=== PATIENT | female | born 1970 | race African-American/Black ===

== ENCOUNTER 2019-07-22 11:17 | Inpatient (IN) | payer OTHER, MEDICAID, SELFPAY ==
[2019-07-22] VITALS (10 sets, daily range): BP systolic 147–170; BP diastolic 75–137; PULSE 70–91; RESP 10–19; TEMP 36–36.2; O2SAT 95–100; BMI 36.7
--- NOTE | ~2019-07-22 | XR_ITS ---
EXAMINATION: XR chest 2V DATE: 07/22/2019 14:29 INDICATION: Cough and weakness TECHNIQUE: PA and lateral views of the chest were obtained. COMPARISON: None FINDINGS: Large-bore dual-lumen right internal jugular central venous catheter with distal tip near the superio r cavoatrial junction. Adjustable gastric banding procedure with gastric band in expected position wi th findings of 25 degrees and reservoir along the anterior left upper quadrant. Lungs are clear with no focal airspace opacities, pulmonary edema, pleural effusion or pneumothorax. The cardiomediastinal silhouette is normal. Visualized bones and soft tissues are unremarkable. IMPRESSION: 1. No acute cardiopulmonary disease. Reviewed, dictated and finalized at location A. ERSITY LECTURER
--- NOTE | ~2019-07-22 | US_ITS ---
EXAMINATION: US retroperitoneal comp DATE: 07/23/2019 08:27 INDICATION: Renal failure. TECHNIQUE: Multiple ultrasound grayscale images of the kidneys were obtained. COMPARISON: None. FINDINGS: The right kidney measures 7.5 x 4.8 x 4.2 cm. The left kidney measures 8.7 x 4.3 x 4.7 cm. The kidney s demonstrate increased parenchymal echogenicity, consistent with nonspecific nephropathy. There is n o hydronephrosis. The bladder is decompressed. Incidentally noted are uterine fibroids. IMPRESSION: 1. Mild atrophy of the kidneys. No hydronephrosis. 2. Uterine fibroids. Reviewed, dictated and finalized at location A. ICAL PHARMACY TECHNICIAN
[2019-07-22 13:40] LABS: Basophils Absolute Auto 0.1 K/mm3 (0.0-0.1); Basophils Percent Auto 0.6 % (0.2-1.2); Eosinophils Absolute Auto 0.2 K/mm3 (0-0.3); Eosinophils Percent Auto 2.3 % (0-4.4); Hematocrit 32.6 % (37.0-47.0); Hemoglobin 10.7 g/dL (12.0-15.0); Immature Granulocyte Absolute 0.05 K/mm3 (0.00-0.031); Immature Granulocyte Percent A 0.5 % (0-0.5); Lymphocytes Absolute Auto 1.86 K/mm3 (0.9-3.2); Lymphocytes Percent Auto 18.3 % (18.3-44.2); Mean Corpuscular HGB Conc 32.8 g/dl (32-36); Mean Corpuscular Hemoglobin 28.2 pg (26-34); Mean Corpuscular Volume 85.8 fl (80-100); Mean Platelet Volume 9.9 fl (7.4-10.4); Monocytes Absolute Auto 0.7 K/mm3 (0.1-0.6); Monocytes Percent Auto 6.8 % (2.6-8.5); Neutrophils Absolute Auto 7.3 K/mm3 (1.3-6.7); Neutrophils Percent Auto 71.5 % (45.5-73.1); Platelet Count Result 267 k/mm3 (150-375); Red Cell Distribution Width 12.6 % (11.5-14.5); White Blood Count 10.2 K/mm3 (4.5-10.0)
[2019-07-22 13:53] LABS: Alanine Aminotransferase 19 U/L (4-35); Albumin Level 4.1 g/dL (3.5-5.1); Alkaline Phosphatase 72 U/L (38-126); Aspartate Amino Transferase 73 U/L (14-36); Bilirubin,Total 0.5 mg/dL (0.2-1.3); Blood Urea Nitrogen 46 mg/dL (7-17); Calcium 8.8 mg/dL (8.4-10.2); Carbon Dioxide 22 mmol/L (22-30); Chloride 93 mmol/L (98-107); Estimated CRCL calculation 10 ml/min; Estimated Glomerular Filt Rate 5; Glucose 119 mg/dL (65-105); Potassium 4.3 mmol/L (3.4-5.0); Sodium 135 mmol/L (137-145)
--- NOTE | 2019-07-22 14:25 | ED.WEAKNESS ---
HPI - Weakness General Chief complaint: Weakness Stated complaint: weakness/dialysis pt Time Seen by Provider: 07/22/19 14:18 Source: patient Mode of arrival: ambulatory Limitations: no limitations History of Present Illness HPI Narrative: A 49 y/o female pt presents to the ED with c/o generalized weakness and BLE swelling that is worsening. Pt states she was admitted to [facility] to have a venous catheter placed for kidney dialysis and had 3 rounds, but she did not like how she was being treated at the facility so she signed out. She states she came here today to get a second opinion and to see if she needs to continue getting kidney dialysis. Her last dialysis was 2 days ago and she is unsure when her next dialysis is scheduled for. Pt notes having a dry cough, and mild CP. She denies SOB. Pt notes a PMHx of HTN and DM. She is unsure who her shore hand dredge or barge is. MD Complaint: generalized weakness Duration: progressively worsening Context: other (kidney failure) Associated symptoms: chest pain and other (dry cough) Related Data Home Medications Medication Instructions Recorded Confirmed amlodipine 07/22/19 labetalol 07/22/19 Allergies Allergy/AdvReac Type Severity Reaction Status Date / Time clonidine AdvReac Unknown Verified 07/22/19 14:18 lisinopril AdvReac Other Verified 07/22/19 14:17 Review of Systems Review of Systems: All systems reviewed & are unremarkable except as noted in HPI and below Constitutional: Constitutional: Reports weakness (generalized) Cardiovascular: Cardiovascular: Reports chest pain (mild) and Reports leg edema (BLE) Respiratory: Respiratory: Reports cough (dry cough) and Denies dyspnea PMFSH Past Medical History Medical History Erythropoietin deficiency anemia Essential (primary) hypertension Type 2 diabetes mellitus without complications Social History Social History (Updated 07/22/19 @ 17:14 by Willy Peng Nano) Smoking status: Unknown if ever smoked Exam Const: General: no acute distress and alert Nutritional Appearance: well nourished Orientation/consciousness: patient oriented x3 HENMT: Head: normal to inspection Chest: Other: Fransisco catheter in place on right chest Resp: Effort & Inspection: normal respiratory effort Auscultation: clear to auscultation bilaterally Cardio: Rate: regular rate Rhythm: regular rhythm GI: GI Palp: Yes Soft to palpation and No Tenderness to palpation present (GI) Skin: General skin exam: normal color Rashes: no rashes Extrem: General: no edema Course Consultations Consultation #1: Discussed case with Dr. Garcia, shore hand dredge or barge. Agrees to consult and recommends admission. Date: 07/22/19 Time: 15:27 Consultation #2: Discussed case with Krystin Avila, SALES ASSOCIATE KEY HOLDER for the hospitalist, Dr. Dupont. Accepts admission. Date: 07/22/19 Time: 15:51 Vital Signs Vital signs: Vital Signs Temperature 36.0 C L 07/22/19 11:36 Pulse Rate 82 07/22/19 11:36 Respiratory Rate 18 07/22/19 11:36 Blood Pressure 167/90 H 07/22/19 11:36 Pulse Oximetry 100 07/22/19 11:36 Temperature 36.0 C L 07/22/19 11:36 Pulse Rate 75 07/22/19 17:44 Respiratory Rate 19 07/22/19 17:44 Blood Pressure 165/100 H 07/22/19 17:44 Pulse Oximetry 96 07/22/19 17:44 MDM - Weakness Differential Diagnosis Differential diagnosis: Likely other (ESRD, hyperkalemia, UTI, volume overload) Medical Records Attestation: I reviewed the patient's medical records. Lab Data Attestation: I reviewed the patient's lab results. Result diagrams: 07/22/19 13:19 07/22/19 13:19 Labs: Lab Results 07/22/19 07/22/19 07/22/19 Range/Units 13:19 13:19 15:16 WBC 10.2 H (4.5-10.0) K/mm3 RBC 3.80 L (4.2-5.4) M/mm3 Hgb 10.7 L (12.0-15.0) g/dL Hct 32.6 L (37.0-47.0) % MCV 85.8 (80-100) fl MCH 28.2 (26-34) pg MCHC 32.8 (32-36) g/d
[2019-07-22 15:35] LABS: Add Urine Microscopic? YES; Appearance Urine Cloudy (Clear); Bacteria Urine Trace /hpf; Bilirubin Urine Negative (Negative); Blood Urine 2+ (Negative); Color Urine Yellow (Yellow); Glucose Urine UA Negative (Negative); Ketones Urine Trace mg/dL (Negative); Leukocyte Esterase Ur 2+ LEU/UL (Negative); Mucus Urine Rare /lpf; Nitrate Urine Negative (Negative); Protein Urine 3+ mg/dL (Negative); Specific Grav Ur 1.013 (1.001-1.035); Squamous Epithelial Cell Urine Moderate /hpf (Few); Urobilinogen Urine Negative mg/dL (<2.0); WBC Urine 31-50 /hpf
--- NOTE | 2019-07-22 16:26 | PM.CNNEP ---
Assessment and Plan Assessment and plan (1) ESRD needing dialysis: Code(s): N18.6 - End stage renal disease; Z99.2 - Dependence on renal dialysis Status: Acute Assessment and Plan: The patient probably has end-stage renal disease. He was already started on dialysis and has a PermCath. The patient still makes urine and is hopeful she will get some recovery. We can check some labs today and tomorrow to see if there is any sign of that. However I told her that she probably would need dialysis tomorrow. Will watch for signs of recovery as we go. Will arrange for dialysis tomorrow. We can get an ultrasound of the kidneys to be sure there is nothing reversible going on. Long discussion with the patient and with the mom. (2) Essential (primary) hypertension: Code(s): I10 - Essential (primary) hypertension Status: Acute Assessment and Plan: The patient has hypertension. Blood pressure is a bit high. I am not sure she has taken her blood pressure medications today. We will restart what she has been on at home. (3) Type 2 diabetes mellitus without complications: Code(s): E11.9 - Type 2 diabetes mellitus without complications Status: Acute Assessment and Plan: She is on Accu-Cheks and sliding-scale insulin. (4) Erythropoietin deficiency anemia: Code(s): D63.1 - Anemia in chronic kidney disease Status: Acute Assessment and Plan: Her hemoglobin is mildly low. She probably should start on some Epogen. History of Present Illness Reason for Consult Consult date: 07/22/19 Chief Complaint Chief complaint: weakness/dialysis pt History of Present Illness Narrative: Heaven is a very pleasant lady who has hypertension, diabetes, hyperlipidemia, chronic kidney disease, anemia. The patient has had chronic kidney disease for some time. Her primary care physician told her a while back that she had problems with her kidneys. He referred her to see Dr. Mccabe at [facility] in [place]. She made an appointment in they told her to get blood work done but she never got it done so she never went to her appointment. Then she went to the emergency room at [facility] with shortness of breath. They found that she had worsened kidney function. She was admitted and she had dialysis. She has had 3 treatments. She did not like the way they treated her though so she signed out against medical advice yesterday. Today the patient has some chest discomfort and is due for dialysis so she came to the hospital. She is actually hoping she gets off dialysis. She is not sure whether the doctors told her that this was acute or chronic kidney insufficiency, however she did say that they pointed out that blood pressure and diabetes were the culprits in her CKD. The patient denies any swelling. She has no shortness of breath. Her chest pain is anterior and mild. She has a cough. She denies any bloody urine, foamy urine, kidney stones, or bladder infections. Her hypertension has been present for at least 20 years. It has been difficult to control all long as she has had several medicine changes to keep the blood pressure in range. She has never had a stroke or heart attack. She has diabetes. Her blood sugar control is pretty good. She thinks her A1c is around 7. She sees the eye doctor yearly and says that she does not have damage to her retina. She has anemia. She was not treated for this before her hospitalization. Past history is as above Social history she does not smoke or drink Family history negative for kidney disease Allergies: Clonidine and lisinopril Review of Systems Constitutional: Constitutional: Reports no additional constitutional complaints Eyes: Eyes: Reports no additional eye complaints ENT: Reports system reviewed and no additional complaints, except as documented Cardiovascular: Cardiovascular: Reports no additional cardiovascular complaints
--- NOTE | 2019-07-22 17:12 | PHAR ---
EPOGEN PT INFO SHEET SENT WITH FIRST EPOGEN DOSE
--- NOTE | 2019-07-22 17:28 | PC.NURSE ---
Call to floor to give report, [facility] is in an isolation room and is unable to give report at present time.
--- NOTE | 2019-07-22 18:21 | ADMGEN ---
This patient, Heaven Trujillo, was admitted to Medical Room 241-01. Patient/family oriented to hospital policies and general routines including ID bracelet, bed and alarms, visiting hours, pain management, procedures, bathroom and other care routines, personal items, smoking policy, room service/diet, and visiting hours. Valuables list has been completed. Information on how to activate the Rapid Response Team has been discussed. Patient/Family are encouraged to report perceived risks to care and to ask questions if they do not understand what they are told or what they should do.
[2019-07-22] MEDS: hydrALAZINE HCL 20 MG/ML VIAL 10 MG IV PUSH (19:17)
--- NOTE | 2019-07-22 19:51 | PM.IMHP ---
H&P: HPI History of Present Illness Chief complaint: ESRD needs dialysis Narrative: This is a 49 year old Diabetic female who presented to the hospital [facility] with a complaint of generalized weakness. The patient is known to have just left AMA from [facility] yesterday after she was treated there this past week for HTN and increased LE edema. She had a right chest HD catheter placed while hospitalized and her last round of dialysis was 2 days ago. She admits to me that her LE edema has practically resolved with the dialysis she had. Today she felt weak and decided to come to the hospital as she thought she might need dialysis as she has no follow up with Nephrology. The patient left [facility] yesterday AMA because she didn't like how she was being treated. [facility] she also mentions that she has had a sporadic dry cough but denies any chest pain, fevers, chills, sore throat, ear pain, shortness of breath, wheezing, abdominal pain, dysuria, hematuria, nausea, vomiting, diarrhea or rectal bleeding. The patient is known to make about 800cc of urine daily. Nephrology has been consulted by ER provider and we have been asked to admit the patient to the hospital for dialysis. No other complaints. Review of Systems Review of Systems: All systems reviewed & are unremarkable except as noted in HPI and below PMFSH Past Medical History Medical History (Updated 07/22/19 @ 20:02 by Abdias Mcnulyt MD) Erythropoietin deficiency anemia Essential (primary) hypertension Type 2 diabetes mellitus without complications Surgical History Surgical History (Updated 07/22/19 @ 19:57 by Abdias Mcnulty MD) H/O tubal ligation LAP-BAND surgery status Family History Family History (Updated 07/22/19 @ 19:57 by Abdias Mcnulty MD) Father Diabetes mellitus Social History Social History Smoking status: Never smoker Alcohol intake: never Substance use: never Gender identity (if verbalized by the patient): Female Spiritual care concerns: No Agree to blood products: Yes Meds Home Medications and Allergies Allergies Allergy/AdvReac Type Severity Reaction Status Date / Time clonidine AdvReac Unknown Verified 07/22/19 14:18 lisinopril AdvReac Other Verified 07/22/19 14:17 Vital Signs Vital Signs - 24 hr 07/22/19 11:36 07/22/19 14:00 07/22/19 14:13 Temperature 36.0 C L Pulse Rate 82 80 80 Respiratory Rate 18 15 Blood Pressure 167/90 H 152/94 H Pulse Oximetry 100 100 07/22/19 15:31 07/22/19 15:46 07/22/19 16:01 Temperature Pulse Rate 72 71 70 Respiratory Rate 19 19 15 Blood Pressure 153/95 H 153/106 H 170/101 H Pulse Oximetry 100 100 100 07/22/19 16:16 07/22/19 17:44 07/22/19 18:11 Temperature 36.2 C L Pulse Rate 70 75 76 Respiratory Rate 10 L 19 19 Blood Pressure 155/137 H 165/100 H 152/89 H Pulse Oximetry 100 96 100 Exam Const: General: cooperative, healthy appearing, no acute distress, alert and awake Nutritional Appearance: well nourished Orientation/consciousness: patient oriented x3 HENMT: Head: normal to inspection General nose exam: Normal external nose present Face and sinus: normal facial exam Mouth: Yes Normal oral and palatal mucosa present and Yes oropharynx normal Eyes: Pupils: Equal, round and reactive pupils present EOM: EOMs intact bilaterally Neck: Neck: supple and no JVD Thyroid: thyroid normal Lymphatic: lymphadenopathy not noted Chest: Other: Right sided port a cath in place+ Resp: Effort & Inspection: normal respiratory effort Auscultation: clear to auscultation bilaterally Cardio: Rate: regular rate Rhythm: regular rhythm Heart sounds: no murmurs GI: Inspection: normal to inspection Auscultation: normal bowel sounds Skin: General skin exam: normal color and no rashes or lesions noted Neuro: General: patient oriented x3 Cranial nerves: Yes CN's II-XII intact bilaterally and
[2019-07-22 23:50] LABS: Glucose Point of Care 188 (65-105)
[2019-07-23] VITALS (19 sets, daily range): BP systolic 121–191; BP diastolic 71–102; PULSE 80–105; RESP 15–18; TEMP 35.9–36.7; O2SAT 100
[2019-07-23 01:47] LABS: Creatinine Urine 65.7 mg/dL
[2019-07-23 01:53] LABS: Sodium Urine Random 25 meq/L
[2019-07-23 02:11] LABS: Total Protein Urine Random 314 mg/dL
[2019-07-23 06:05] LABS: Basophils Absolute Auto 0.1 K/mm3 (0.0-0.1); Basophils Percent Auto 0.6 % (0.2-1.2); Eosinophils Absolute Auto 0.3 K/mm3 (0-0.3); Eosinophils Percent Auto 3.6 % (0-4.4); Hematocrit 30.9 % (37.0-47.0); Hemoglobin 10.1 g/dL (12.0-15.0); Immature Granulocyte Absolute 0.04 K/mm3 (0.00-0.031); Immature Granulocyte Percent A 0.4 % (0-0.5); Lymphocytes Absolute Auto 1.89 K/mm3 (0.9-3.2); Lymphocytes Percent Auto 20.4 % (18.3-44.2); Mean Corpuscular HGB Conc 32.7 g/dl (32-36); Mean Corpuscular Hemoglobin 27.8 pg (26-34); Mean Corpuscular Volume 85.1 fl (80-100); Mean Platelet Volume 9.9 fl (7.4-10.4); Monocytes Absolute Auto 0.7 K/mm3 (0.1-0.6); Monocytes Percent Auto 7.8 % (2.6-8.5); Neutrophils Absolute Auto 6.2 K/mm3 (1.3-6.7); Neutrophils Percent Auto 67.2 % (45.5-73.1); Platelet Count Result 262 k/mm3 (150-375); Red Blood Count 3.63 M/mm3 (4.2-5.4); Red Cell Distribution Width 12.2 % (11.5-14.5); White Blood Count 9.3 K/mm3 (4.5-10.0)
[2019-07-23 06:12] LABS: Albumin Level 3.4 g/dL (3.5-5.1); Blood Urea Nitrogen 51 mg/dL (7-17); Calcium 8.3 mg/dL (8.4-10.2); Carbon Dioxide 22 mmol/L (22-30); Chloride 96 mmol/L (98-107); Estimated CRCL calculation 9 ml/min; Estimated Glomerular Filt Rate 6; Glucose 111 mg/dL (65-105); Phosphorus 5.3 mg/dL (2.5-4.5); Sodium 136 mmol/L (137-145)
[2019-07-23] MEDS: hydrALAZINE HCL 20 MG/ML VIAL 10 MG IV PUSH (06:41)
[2019-07-23 06:48] LABS: Hepatitis B Surface Antigen Negative (Negative)
[2019-07-23 06:53] LABS: HAV RESULT Negative (Negative); Hepatitis B Core IgM Result Negative (Negative)
[2019-07-23 07:05] LABS: Hepatitis B Surface Anti Res Negative; Hepatitis C Virus Antibody Negative (Negative)
[2019-07-23 07:35] LABS: Glucose Point of Care 112 (65-105)
--- NOTE | 2019-07-23 08:37 | PC.NURSE ---
patient to dialysis room via bed. IV intact.
[2019-07-23] MEDS: EPOETIN ALFA 10,000 UNITS/ML VIAL 10000 UNITS IV PUSH (09:58)
--- NOTE | 2019-07-23 10:04 | PM.PNNEP ---
Progress Note: A&P Assessment and Plan (1) End stage renal disease: Code(s): N18.6 - End stage renal disease Status: Chronic Assessment and Plan: HD today and plan T/T/S schedule while hospitalized Reviewed records from [facility]: - etiology felt to be combination of HTN and DM - 24 hour urine collection with a creatinine clearance of 9cc/min - renal ultrasound with small kidneys - serological evaluation negative aside from weakly positive JAMIAL - uremic symptoms noted leading to initiation of renal replacement therapy despite patient's hope that she may recover, suspect she is ESRD will need outpatient dialysis arranged before discharge - she was folllowing with Dr. Mccabe for CKD management (2) Essential (primary) hypertension: Code(s): I10 - Essential (primary) hypertension Status: Chronic Assessment and Plan: better control since admission but continues to fluctuate follow trend post-HD today would not be opposed to starting BRIEN-I or ARB follow hemodynamics (3) Anemia: Code(s): D64.9 - Anemia, unspecified Status: Acute Assessment and Plan: due to ESRD Epogen with HD follow trend of H/H (4) Diabetes: Code(s): E11.9 - Type 2 diabetes mellitus without complications Status: Acute Assessment and Plan: follow accuchecks on SSI Will continue to follow. Subjective Date/time seen: 07/23/19 10:04 Tolerating dialysis at the time of my visit (seen on HD at ~ 10:00AM); no apparent issues or problems voiced; no apparent distress; no events overnight or earlier this AM. Exam Narrative: Exam Narrative: General: WD/WN AA female in NAD Heart: normal S1 and S2; no rub Lungs: clear to auscultation Abdomen: soft, nontender, nondistended, positive bowel sounds Extremities: no cyanosis or clubbing; trace edema Skin: warm and dry Objective Data Vital Signs Vital Signs: Vital Signs Temp Pulse Resp BP Pulse Ox 07/23/19 07:30 157/90 H 07/23/19 05:52 36.2 C L 87 18 191/92 H 100 07/22/19 22:15 36.2 C L 91 18 147/75 H 95 07/22/19 18:11 36.2 C L 76 19 152/89 H 100 07/22/19 17:44 75 19 165/100 H 96 07/22/19 16:16 70 10 L 155/137 H 100 07/22/19 16:01 70 15 170/101 H 100 07/22/19 15:46 71 19 153/106 H 100 07/22/19 15:31 72 19 153/95 H 100 07/22/19 14:13 80 07/22/19 14:00 80 15 152/94 H 100 07/22/19 11:36 36.0 C L 82 18 167/90 H 100 Intake/Output Intake/Output: Intake & Output 07/20/19 07/21/19 07/22/19 07/23/19 23:59 23:59 23:59 23:59 Intake Total 300 Output Total 600 Balance -300 Meds/Results Medications: Active Medications Generic Name Dose Route Start Last Admin Trade Name Freq PRN Reason Stop Dose Admin Acetaminophen 650 mg 07/22/19 20:03 Tylenol Tablet PO Q4H PRN Mild Pain (1-3) or Fever Dextrose 12.5 gm 07/22/19 20:03 Dextrose 50% Syringe IV PUSH PRN PRN Hypoglycemia Protocol Epoetin Darin 10,000 units 07/23/19 19:00 Epogen IV PUSH 07/23/19 19:01 ONCE ONE Glucagon 1 mg 07/22/19 20:03 Glucagon For Inj IM PRN PRN Hypoglycemia Protocol Glucose 15 gm 07/22/19 20:03 Glutose 15 PO PRN PRN Hypoglycemia Protocol Hydralazine HCl 10 mg 07/22/19 20:02 07/23/19 06:41 Apresoline Hcl Inj IV PUSH 07/23/19 12:00 10 mg Q8H PRN Administration see comment Albumin Human 50 mls @ 999 mls/hr 07/22/19 16:36 Albutein IVPB 07/23/19 16:37 Q10M PRN HYPOTENSION Dextrose 1,000 mls @ 100 mls/hr 07/22/19 20:03 Dextrose 5% 1,000 Ml IVPB PRN PRN Hypoglycemia Protocol Albumin Human 50 mls @ 999 mls/hr 07/22/19 23:00 Albutein IVPB 08/21/19 23:01 Q10M PRN HYPOTENSION Insulin Aspart 3 - 6 units 07/23/19 08:00 07/23/19 09:02 Novolog SUB-Q Not G
[2019-07-23 12:49] LABS: Glucose Point of Care 110 (65-105)
--- NOTE | 2019-07-23 15:17 | PM.IMPN ---
Progress Note: A&P Assessment and Plan (1) ESRD (end stage renal disease) on dialysis: Code(s): N18.6 - End stage renal disease; Z99.2 - Dependence on renal dialysis Status: Chronic Assessment and Plan: The patient is found to be in end-stage renal disease with a creatinine of 8.1 on arrival. Nephrology evaluated the patient and ordered dialysis this morning. The patient is feeling much better after having dialysis and reports that she is ready to be discharged home. I explained to the patient that before she can be discharged we need to set up outpatient dialysis at [facility]. If she was to leave this time then she would continue to come back to emergency room repeatedly for dialysis treatments every few days which is not a good long-term plan. The patient understands and agrees with the plan this time for further monitoring and discharge planning. (2) Type 2 diabetes mellitus without complications: Code(s): E11.9 - Type 2 diabetes mellitus without complications Status: Chronic Assessment and Plan: Patient's serum glucose this morning was 111. Will check a hemoglobin A1c in the morning. Accuchecks, SSI Coverage, Continue home Long acting insulin, hypoglycemic protocol. (3) Essential (primary) hypertension: Code(s): I10 - Essential (primary) hypertension Status: Chronic Assessment and Plan: Patient states she has had blood pressure issues for 20 years. She is not currently taking any blood pressure medications at home. While she was at [facility] they tried started her on 3 blood pressure medications and she felt like she was having side effects and discontinued all them. After discussing with Nephrology she will be started on losartan 50 mg daily for blood pressure control at this time in further adjustments can be made as an outpatient. Monitor blood pressure. PRN hydralazine w/ parameters. (4) Erythropoietin deficiency anemia: Code(s): D63.1 - Anemia in chronic kidney disease Status: Chronic Assessment and Plan: Anemia of chronic disease. Her hemoglobin was 10.1 and hematocrit was 30.9. Stable. Continue Nephrology recommendations. (5) Abnormal urinalysis: Code(s): R82.90 - Unspecified abnormal findings in urine Status: Acute Assessment and Plan: r/o UTI vs. contamination. She denies any urinary symptoms at this time all. Urine culture pending. Time Spent With Patient Time with patient: 25 - 35 minutes Subjective Date/time seen: 07/23/19 15:17 Interval history: Date of service 07/23/2019: The patient is feeling much better today after receiving dialysis. Denies any more leg swelling, cough or generalized weakness. She reports having blood pressure issues for over 20 years and reports multiple reactions to different medications. She states she left [facility] because they were given her to any medications and she was having side effects from them. She is currently living in [place] with her mother and would be able to get transported to [facility] for dialysis if necessary. Denies any chest pain, shortness of breath, fever, chills, calf pain, nausea, vomiting, abdominal pain, diarrhea, constipation or any other symptoms at this time. Review of Systems Review of Systems: All systems reviewed & are unremarkable except as noted in HPI and below Exam Narrative: Exam Narrative: General: 49-year-old woman sitting up in the chair resting comfortably. In no acute distress. Skin: No jaundice or cyanosis. Good skin turgor. Neck: Full range of motion. Supple. Respiratory: PermCath to right upper chest wall. Lungs are clear to auscultation bilaterally. No bony chest wall tenderness. Cardiov
[2019-07-23] MEDS: LOSARTAN POTASSIUM 50 MG TABLET PO (16:32)
[2019-07-23 17:26] LABS: Glucose Point of Care 305 (65-105)
[2019-07-23] MEDS: INSULIN ASPART (*BKC) 100 UNITS/ML SUB-Q (17:27)
[2019-07-23 22:44] LABS: Glucose Point of Care 166 (65-105)
[2019-07-24] MEDS: ACETAMINOPHEN 325 MG TABLET 650 MG PO (05:18)
[2019-07-24 05:36] LABS: Hemoglobin A1C 6.8 % (<5.7)
[2019-07-24 05:56] LABS: Albumin Level 3.4 g/dL (3.5-5.1); Blood Urea Nitrogen 33 mg/dL (7-17); Calcium 8.2 mg/dL (8.4-10.2); Carbon Dioxide 29 mmol/L (22-30); Chloride 95 mmol/L (98-107); Estimated CRCL calculation 12 ml/min; Estimated Glomerular Filt Rate 8; Glucose 116 mg/dL (65-105); Phosphorus 3.9 mg/dL (2.5-4.5); Potassium 3.5 mmol/L (3.4-5.0); Sodium 135 mmol/L (137-145)
[2019-07-24 06:10] VITALS: BP 152/81; PULSE 93; RESP 18; TEMP 36.8; O2SAT 99
[2019-07-24 07:55] LABS: Glucose Point of Care 119 (65-105)
[2019-07-24 08:00] VITALS: PULSE 93; RESP 18; O2SAT 99
[2019-07-24] MEDS: LOSARTAN POTASSIUM 50 MG TABLET PO (08:59)
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
[2019-07-24 12:19] LABS: Glucose Point of Care 168 (65-105)
== END 2019-07-24 12:24 | disposition home or self-care (01) | DRG 682 ==
LOC: ANHED 16:47 → ANH2MED 17:10
PROVIDERS: Emergency Medicine; Family Medicine; Internal Medicine Nephrology; Physician Assistant; Admitting Provider Internal Medicine; Emergency Provider Emergency Medicine; Visit Provider Physician Assistant
DX: I12.0 Hypertensive chronic kidney disease with stage 5 chronic kidney disease or end stage renal disease (principal); N18.6 End stage renal disease; Z99.2 Dependence on renal dialysis; E11.22 Type 2 diabetes mellitus with diabetic chronic kidney disease; D63.1 Anemia in chronic kidney disease; Z79.4 Long term (current) use of insulin
CPT/HCPCS: 36415; 71046; 76770; 80053; 80069; 80074; 81001; 82570; 83036; 84156; 84300; 85025; 86706; 87081; 87086; 87088; 99285; A9270; G0257; J0360; J1815; J7030; Q4081

== ENCOUNTER 2019-09-04 15:37 | Emergency (ER) | payer OTHER, MEDICAID, SELFPAY ==
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
[2019-09-04 15:37] VITALS: BP 176/109; PULSE 96; RESP 15; TEMP 37.7; O2SAT 100
--- NOTE | 2019-09-04 15:41 | ECG_ITS ---
Measurements Intervals [place] Rate: 96 P: 37 NV: 137 QRS: -30 QRSD: 98 T: 16 QT: 384 QTc: 486 Interpretive Statements SINUS RHYTHM VOLTAGE CRITERIA FOR LVH POOR R WAVE PROGRESSION, ANTERIOR LEADS BORDERLINE T WAVE ABNORMALITY- INFERIOR LEADS BASELINE WANDER- AVR, AVF, V2 BORDERLINE ECG Electronically Signed On 09-05-2019 7:40:05 CDT by Robert Bocanegra D.O.
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
--- NOTE | 2019-09-04 15:44 | PC.NURSE ---
Pt denies neck/back pain, C Collar removed by provider.
[2019-09-04 16:13] VITALS: RESP 14; O2SAT 99
[2019-09-04 16:52] LABS: Add Urine Microscopic? YES; Appearance Urine Clear (Clear); Bacteria Urine Trace /hpf; Bilirubin Urine Negative (Negative); Blood Urine Negative (Negative); Color Urine Yellow (Yellow); Glucose Urine UA 1+ mg/dL (Negative); Ketones Urine Negative (Negative); Leukocyte Esterase Ur Trace LEU/UL (Negative); Nitrate Urine Negative (Negative); Protein Urine 3+ mg/dL (Negative); Specific Grav Ur 1.014 (1.001-1.035); Squamous Epithelial Cell Urine Many /hpf (Few); Urobilinogen Urine Negative mg/dL (<2.0)
[2019-09-04 16:54] LABS: Basophils Percent Auto 0.4 % (0.2-1.2); Eosinophils Absolute Auto 0.3 K/mm3 (0-0.3); Eosinophils Percent Auto 3.6 % (0-4.4); Hematocrit 34.1 % (37.0-47.0); Hemoglobin 11.2 g/dL (12.0-15.0); Immature Granulocyte Absolute 0.06 K/mm3 (0.00-0.031); Immature Granulocyte Percent A 0.8 % (0-0.5); Lymphocytes Absolute Auto 1.45 K/mm3 (0.9-3.2); Lymphocytes Percent Auto 19.5 % (18.3-44.2); Mean Corpuscular HGB Conc 32.8 g/dl (32-36); Mean Corpuscular Hemoglobin 28.2 pg (26-34); Mean Corpuscular Volume 85.9 fl (80-100); Mean Platelet Volume 10.6 fl (7.4-10.4); Monocytes Absolute Auto 0.4 K/mm3 (0.1-0.6); Monocytes Percent Auto 5.1 % (2.6-8.5); Neutrophils Absolute Auto 5.3 K/mm3 (1.3-6.7); Neutrophils Percent Auto 70.6 % (45.5-73.1); Platelet Count Result 243 k/mm3 (150-375); Red Blood Count 3.97 M/mm3 (4.2-5.4); Red Cell Distribution Width 11.7 % (11.5-14.5); White Blood Count 7.5 K/mm3 (4.5-10.0)
[2019-09-04 17:05] LABS: Alanine Aminotransferase 11 U/L (4-35); Albumin Level 4.1 g/dL (3.5-5.1); Alkaline Phosphatase 94 U/L (38-126); Aspartate Amino Transferase 22 U/L (14-36); Bilirubin,Total 0.4 mg/dL (0.2-1.3); Blood Urea Nitrogen 25 mg/dL (7-17); Carbon Dioxide 35 mmol/L (22-30); Chloride 93 mmol/L (98-107); Estimated CRCL calculation 17 ml/min; Estimated Glomerular Filt Rate 12; Glucose 223 mg/dL (65-105); Potassium 3.8 mmol/L (3.4-5.0); Sodium 135 mmol/L (137-145)
[2019-09-04 18:11] VITALS: BP 143/97; PULSE 75
[2019-09-04 18:12] VITALS: BP 140/98; PULSE 83
[2019-09-04 18:14] VITALS: BP 120/90; PULSE 112
[2019-09-04 18:34] VITALS: BP 145/99; PULSE 83; RESP 20; O2SAT 100
== END 2019-09-04 18:39 | disposition home or self-care (01) ==
PROVIDERS: Emergency Medicine Emergency Medical Services; Emergency Provider Emergency Medicine; PCP Family Medicine
DX: S20.211A Contusion of right front wall of thorax, initial encounter (principal); E11.22 Type 2 diabetes mellitus with diabetic chronic kidney disease; I12.0 Hypertensive chronic kidney disease with stage 5 chronic kidney disease or end stage renal disease; N18.6 End stage renal disease; Z99.2 Dependence on renal dialysis; Z79.4 Long term (current) use of insulin; E11.21 Type 2 diabetes mellitus with diabetic nephropathy; D63.1 Anemia in chronic kidney disease; Z98.84 Bariatric surgery status; R94.31 Abnormal electrocardiogram [ECG] [EKG]; V47.5XXA Car driver injured in collision with fixed or stationary object in traffic accident, initial encounter
CPT/HCPCS: 36415; 71250; 80053; 81001; 81025; 85025; 87086; 93005; 96374; 99284; A9270; J0131

== ENCOUNTER 2019-10-20 06:50 | Outpatient (CLI) | payer OTHER, MEDICAID, SELFPAY ==
--- NOTE | 2019-10-20 07:30 | NEURO_ITS ---
TEST: SLEEP-DEPRIVED ELECTROENCEPHALOGRAM DIAGNOSIS: SEIZURE PATIENT NUMBER: [id number] EEG NUMBER: [id number] RECORDING DATE: 10/20/19 CLINICAL HISTORY: Patient reports for about 6 months she has been having episodes of ?blacking out? for about 30 seconds then she is fine. CONDITION OF RECORDING: Awake, drowsy and sleep EEG DESCRIPTION: Basic resting occipital frequency consists of moderate amount of fairly well organized low voltage 8-10hz alpha mixed with low voltage 15-18hz beta. During drowsiness low voltage beta activity is seen diffusely mixed with waxing and waning posterior alpha rhythms and intermittent 6-7hz theta activity. Bilateral symmetrical sleep activity is seen during sleep. Photic stimulation produced normal drive. Hyperventilation produced normal and symmetrical build- up. Nonparoxysmal. Nonfocal. Nonlateralizing. IMPRESSION: No significant abnormalities noted. MTDD
== END 2019-10-20 06:51 | disposition home or self-care (01) ==
PROVIDERS: PCP Family Medicine; Visit Provider Psychiatry & Neurology Neurology
DX: R56.9 Unspecified convulsions (principal)
CPT/HCPCS: 95819

== ENCOUNTER 2019-11-02 22:06 | Observation (INO) | payer MEDICARE, MEDICAID, SELFPAY ==
[2019-11-02] VITALS (13 sets, daily range): BP systolic 134–159; BP diastolic 98–122; PULSE 92–114; RESP 0–26; TEMP 37.2; O2SAT 96–99
--- NOTE | ~2019-11-02 | US_ITS ---
EXAMINATION: US carotid duplex BI DATE: 11/04/2019 17:07 INDICATION: Encephalopathy with seizures and recurrent loss of consciousness. TECHNIQUE: Grayscale, color Doppler, and pulsed Doppler images of the cervical carotid arteries were obtained. The degree of vessel stenosis is placed in one of the following categories: normal, <50%, 5 0-69%, >=70% but less than near-occlusion, near-occlusion, or total occlusion. Note that percent sten osis relative to normal distal artery lumen diameter is indirectly measured from velocity measurement s as described by Parker, et al. Radiology 2003; 229:340-346. COMPARISON: None. FINDINGS: RIGHT: The right common carotid artery (CCA) peak systolic velocity (PSV) is 95 cm/s. The right internal car otid artery (ICA) PSV is 41 cm/s. The right ICA end-diastolic velocity (EDV) is 18 cm/s. The right IC A/CCA PSV ratio is 0.4. Grayscale and color Doppler images yield an estimate of <50% diameter reducti on from plaque in the ICA. The external carotid artery (ECA) PSV is 41 cm/s. There is antegrade flow in the right vertebral artery. LEFT: The left CCA PSV is 77 cm/s. The left ICA PSV is 65 cm/s. The left ICA EDV is 27 cm/s. The left ICA/C CA PSV ratio is 0.8. Grayscale and color Doppler images yield an estimate of <50% diameter reduction from plaque in the ICA. The ECA PSV is 45 cm/s. There is antegrade flow in the left vertebral artery. IMPRESSION: 1. <50% stenosis in the right internal carotid artery. 2. <50% stenosis in the left internal carotid artery. Reviewed, dictated and finalized at location A.
--- NOTE | ~2019-11-02 | MR_ITS ---
EXAMINATION: MR brain/brain stem wo con DATE: 11/03/2019 14:33 INDICATION: Seizure. TECHNIQUE: Magnetic resonance imaging (MRI) of the brain and brainstem was performed without intraven ous contrast due to low estimated GFR. Sequences included sagittal and axial T1-weighted FSE, axial d iffusion-weighted FS EPI, axial T2*-weighted GRE, axial T2-weighted FLAIR Propeller, axial T2-weighte d Propeller, coronal T2-weighted FLAIR, and coronal T1-weighted 3D FSPGR. Apparent diffusion coeffici ent (ADC) maps were created. COMPARISON: None. FINDINGS: The hippocampi are normal and symmetric. There is no intracranial hemorrhage, acute infarct ion, or abnormal intracranial mass lesion. There is an empty sella. There are scattered areas of no nspecific increased T2-weighted signal intensity in the cerebral white matter. The ventricles are nor mal in size. The orbits are normal. There is mild mucosal thickening in left maxillary sinus. The mas toid air cells are normal. IMPRESSION: 1. Mild nonspecific cerebral white matter disease, which likely represents chronic small vessel ische sudha disease. Reviewed, dictated and finalized at location A. IMPRESSION: 1. 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
--- NOTE | 2019-11-02 22:07 | ECG_ITS ---
Measurements Intervals [place] Rate: 101 P: 36 WI: 142 QRS: 97 QRSD: 92 T: 53 QT: 342 QTc: 444 Interpretive Statements SINUS TACHYCARDIA RIGHT AXIS DEVIATION POOR R WAVE PROGRESSION, ANTERIOR LEADS BASELINE ARTIFACT- I, III, AVL, V4 ABNORMAL ECG Electronically Signed On 11-03-2019 6:56:38 CDT by Robert Bocanegra D.O.
--- NOTE | 2019-11-02 22:09 | ED.SEIZURE ---
HPI - Seizure General Chief Complaint: Seizure Stated Complaint: seizures History of Present Illness HPI Narrative: Currently under investigation for possible new onset seizures. 3 episodes today. During episodes she stares off. does not respond. Shows some repetitive movments. During one episode today. She displayed tongue biting. She had a normal EEG and has not been started on antiepileptics. Related Data Home Medications Medication Instructions Recorded Confirmed allopurinol 300 mg PO DAILY 11/03/19 11/03/19 irbesartan 300 mg PO DAILY 11/03/19 11/03/19 Allergies Allergy/AdvReac Type Severity Reaction Status Date / Time clonidine AdvReac Severe blacking Verified 10/15/19 16:27 out lisinopril AdvReac Severe kidney Verified 10/15/19 16:27 function Review of Systems Review of Systems: All systems reviewed & are unremarkable except as noted in HPI and below Constitutional: Constitutional: Denies chills and Denies fever(s) Cardiovascular: Cardiovascular: Denies chest pain Respiratory: Respiratory: Denies dyspnea Gastrointestinal: Gastrointestinal: Denies nausea and Denies vomiting Genitourinary: Genitourinary: Denies dysuria Neurologic: Denies headache(s) and Denies weakness [facility] Past Medical History Medical History Controlled diabetes mellitus with diabetic nephropathy, with long-term current use of insulin Erythropoietin deficiency anemia Essential (primary) hypertension Type 2 diabetes mellitus with diabetic chronic kidney disease Type 2 diabetes mellitus without complications Surgical History Surgical History H/O tubal ligation LAP-BAND surgery status Family History Family History Father Diabetes mellitus Social History Social History Social History: Smoking status: Never smoker Second hand tobacco smoke exposure: No Alcohol intake: never Substance use: never Substance use type: does not use Gender identity (if verbalized by the patient): Female Spiritual care concerns: Yes Agree to blood products: Yes Exam Const: General: healthy appearing, no acute distress and alert Orientation/consciousness: patient oriented x3 HENMT: Head: normal to inspection Neck: Neck: normal visual inspection and no lymphadenopathy Chest: Chest palpation & inspection: no tenderness Resp: Effort & Inspection: normal respiratory effort Auscultation: clear to auscultation bilaterally, no rales, no rhonchi and no wheezes Cardio: Jugular venous distension: no JVD Rate: regular rate Rhythm: regular rhythm Heart sounds: no murmurs GI: Inspection: non-distended GI Palp: Yes Soft to palpation and No Tenderness to palpation present (GI) Skin: General skin exam: normal color Neuro: General: patient oriented x3, moves all extremities, no focal motor deficits and CN's II-XI intact bilaterally Speech: normal speech Extrem: General: no edema Psych: Appearance: well kempt Affect: normal affect Course Vital Signs Vital signs: Vital Signs Temperature 37.2 C 11/02/19 22:05 Pulse Rate 102 H 11/02/19 22:05 Respiratory Rate 14 11/02/19 22:05 Blood Pressure 159/99 H 11/02/19 22:05 Pulse Oximetry 98 11/02/19 22:05 Temperature 36.6 C 11/03/19 03:03 Pulse Rate 84 11/03/19 04:00 Respiratory Rate 16 11/03/19 03:03 Blood Pressure 143/87 H 11/03/19 03:03 Pulse Oximetry 99 11/03/19 03:03 MDM - Seizure MDM Narrative Medical decision making narrative: Discussed case with Dr. Williamson. He agreed with outpatient follow-up as planned. Shortly after that she had an episode which was moderately convincing for a true epileptic seizure. IT was brief and stopped spontaneously. I ordered 1 gm keppra and made arrangments to have he
[2019-11-02 22:33] LABS: Basophils Percent Auto 0.3 % (0.2-1.2); Eosinophils Absolute Auto 0.1 K/mm3 (0-0.3); Hemoglobin 13.4 g/dL (12.0-15.0); Immature Granulocyte Absolute 0.02 K/mm3 (0.00-0.031); Immature Granulocyte Percent A 0.3 % (0-0.5); Lymphocytes Absolute Auto 0.85 K/mm3 (0.9-3.2); Lymphocytes Percent Auto 12.2 % (18.3-44.2); Mean Corpuscular HGB Conc 32.7 g/dl (32-36); Mean Corpuscular Volume 91.7 fl (80-100); Mean Platelet Volume 10.6 fl (7.4-10.4); Monocytes Absolute Auto 0.4 K/mm3 (0.1-0.6); Monocytes Percent Auto 5.2 % (2.6-8.5); Neutrophils Absolute Auto 5.6 K/mm3 (1.3-6.7); Platelet Count Result 214 k/mm3 (150-375); Red Blood Count 4.47 M/mm3 (4.2-5.4); Red Cell Distribution Width 14.5 % (11.5-14.5)
[2019-11-02 22:45] LABS: Blood Urea Nitrogen 35 mg/dL (7-17); Calcium 9.1 mg/dL (8.4-10.2); Carbon Dioxide 26 mmol/L (22-30); Chloride 92 mmol/L (98-107); Estimated Glomerular Filt Rate 6; Glucose 295 mg/dL (65-105); Potassium 5.2 mmol/L (3.4-5.0); Sodium 133 mmol/L (137-145)
[2019-11-02 23:08] LABS: Lactic Acid Reflex 2.6 mmol/L (0.7-2.1)
[2019-11-02 23:20] LABS: Add Urine Microscopic? YES; Appearance Urine Cloudy (Clear); Bacteria Urine Trace /hpf; Bilirubin Urine Negative (Negative); Blood Urine Negative (Negative); Color Urine Yellow (Yellow); Glucose Urine UA 3+ mg/dL (Negative); Ketones Urine Negative (Negative); Leukocyte Esterase Ur Trace LEU/UL (Negative); Mucus Urine Rare /lpf; Nitrate Urine Negative (Negative); Protein Urine 3+ mg/dL (Negative); Specific Grav Ur 1.011 (1.001-1.035); Squamous Epithelial Cell Urine Many /hpf (Few); Urobilinogen Urine Negative mg/dL (<2.0); WBC Urine 16-20 /hpf
[2019-11-02 23:31] LABS: Amphetamine Screen Urine Negative (Negative); Barbiturate Screen Urine Negative (Negative); Benzodiazepines Screen Urine Negative (Negative); Cannabinoid Screen Urine Negative (Negative); Cocaine Screen Urine Negative (Negative); Methadone Screen Urine Negative (Negative); Opiate Screen Urine Negative (Negative); Phencyclidine Screen Urine Negative (Negative)
[2019-11-03] VITALS (14 sets, daily range): BP systolic 133–158; BP diastolic 85–114; PULSE 72–89; RESP 16–26; TEMP 36.3–36.6; O2SAT 96–100; BMI 35.8
--- NOTE | 2019-11-03 00:43 | PC.NURSE ---
Pt mother called out stating pt was having a seizure. SANTOS Quiles at bedside. no further orders at this time.
[2019-11-03 01:55] LABS: Reflex Lactic Acid Yes or No Add Lactic
[2019-11-03] MEDS: levETIRAcetam 1000MG/NACL100ML 1,000 MG/100 ML BAG 400 MG IVPB (02:00)
[2019-11-03 02:19] LABS: Lactic Acid 0.9 mmol/L (0.7-2.1)
--- NOTE | 2019-11-03 03:04 | ADMGEN ---
This patient, Heaven Trujillo, was admitted to Medical Room 347-01. Patient/family oriented to hospital policies and general routines including ID bracelet, bed and alarms, visiting hours, pain management, procedures, bathroom and other care routines, personal items, smoking policy, room service/diet, and visiting hours. Valuables list has been completed. Information on how to activate the Rapid Response Team has been discussed. Patient/Family are encouraged to report perceived risks to care and to ask questions if they do not understand what they are told or what they should do.
[2019-11-03] MEDS: LACTATED RINGERS 1,000 ML 100 ML IV CONT ×2 (03:37→12:15)
[2019-11-03] MEDS: allopurinoL 50 MG TABLET 150 MG PO (10:13)
[2019-11-03] MEDS: IRBESARTAN 150 MG TABLET 300 MG PO (10:13)
[2019-11-03 12:47] LABS: Glucose Point of Care 137 (65-105)
--- NOTE | 2019-11-03 13:06 | PM.IMHP ---
H&P: HPI History of Present Illness Chief complaint: seizure like episodes Narrative: Date of Service 11/03/19 [id number] The supervising physician for this history and physical is Dr. Fei Douglass. Ms. Trujillo is a 49yo F with history of end-stage renal disease on hemodialysis, type 2 diabetes mellitus, hypertension, gout, and chronic anemia who presented to the ED for evaluation of which she describes as seizure episodes . She noted that she began having these episodes in April 2019, described by family as 30-second episodes of staring off, will not respond to her name, fidgets with her hands, grinds her teeth, sometimes makes a moaning noise, then she regains consciousness seemingly without a postictal state. Patient denies any prodrome in symptoms and cannot tell when an episode is coming on. She describes that she does not realize she had an episode unless told by family. She lives with her mother who is the Witness to most of these episodes. Her mother brought her to the ER for evaluation because she had 3 episodes yesterday that were longer and more intense , lasting 1-2 minutes each. She did have some tongue biting with one of the episodes yesterday. She tells me she notices on the days that she does have an episode, she feels extremely fatigued in the usually occur on a day after having poor sleep the night before. She describes there are many days where she wakes up feeling unrested, has never had a sleep study. She also feels like she has more episodes around 1 week prior to her menstrual period. She describes a mild intermittent headaches but none today. She denies any changes in vision, neck pain, or bowel/bladder incontinence. She recently saw Dr. Williamson 2 weeks ago, had an outpatient EEG, and was scheduled to see him in the office today. She is admitted to observation for evaluation of seizures and neurology has been consulted. Review of Systems Review of Systems: Narrative: Three staring episodes yesterday at were longer in duration than usual. No seizure activity today. No speech or vision changes. She reports feeling at her baseline. No chest pain, shortness of breath, cough, or recent sick contacts. No nausea, vomiting, abdominal pain, diarrhea, constipation, hematochezia, or melena. Twelve systems were reviewed with pertinent positives and negatives as per HPI. Except as documented, all other systems were reviewed and are negative. COUNTS INCLUDE 234 BEDS AT THE [facility] Past Medical History Medical History Controlled diabetes mellitus with diabetic nephropathy, with long-term current use of insulin Diabetes End stage renal disease Erythropoietin deficiency anemia Hypertension Surgical History Surgical History H/O tubal ligation 1993 LAP-BAND surgery status 2014 Family History Family History Father Diabetes mellitus Social History Social History Social History: Ms. Trujillo lives at home with her mother in [place]. She denies alcohol, tobacco, or other drug use. 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 PCP is Dr Maria Teresa Ramirez. She designates her mother, Jennifer, as her surrogate decision maker and is full code status. Smoking status: Never smoker Second hand tobacco smoke exposure: No Alcohol intake: never Substance use: never Substance use type: does not use Gender identity (if verbalized by the patient): Female Spiritual care concerns: Yes Agree to blood products: Yes Meds Home Medications and Allergies Home Medications Medication Instructions Recorded Confirmed Type rosuvastatin 5 mg tablet 5 mg PO .evening #30 tablet 08/31/19 11/03/19 Rx insulin glargine 100 unit/mL (3 20 unit SUB-Q DAILY 30 Days #6 ml 10/02/19 11/03/19 Rx mL) subcu
[2019-11-03 16:31] LABS: Glucose Point of Care 148 (65-105)
--- NOTE | 2019-11-03 16:31 | CONS_ITS ---
DATE OF CONSULTATION: HISTORY OF PRESENT ILLNESS: This 49-year-old right-handed female has been admitted for the complaints of possible new onset seizure with 3 episodes on day of admission when she stares off and does not respond with no history of generalized tonic-clonic seizure and no history of tongue biting. The patient reportedly has been taking allopurinol 300 mg daily, irbesartan 300 mg daily. ALLERGIES: SHE IS ALLERGIC TO CLONIDINE, LISINOPRIL. PAST MEDICAL HISTORY: She has ongoing history of 1. Diabetes mellitus with diabetic nephropathy, insulin-dependent. 2. Erythropoietin deficiency with anemia. 3. Hypertension. PAST SURGICAL HISTORY: History of tubal ligation and lap band surgery. SOCIAL HISTORY: The patient is . Never smoker, never drinker, never substance abuser. PHYSICAL EXAMINATION: GENERAL: Revealed her to be awake, alert, cooperative, in no obvious acute distress. HEENT: Head normocephalic with no cranial bruit. Ears, nose, throat examination normal. NECK: Supple with no cervical bruit. No thyromegaly. No lymphadenopathy. HEART: Regular. LUNGS: Clear. ABDOMEN: Soft with no organomegaly. NEUROLOGICAL: She has normal mental status, normal speech. Pupils round regular. Gilbert of vision full. Extraocular movements full. Face symmetrical. Tongue midline. Motor examination revealed her to have no drift of 1 side or other side. Reflexes symmetrical. Plantars are downgoing. There is no evidence of gross cerebellar deficit. ASSESSMENT AND PLAN: History of 3 seizures on the day of admission and the ER physician called us. We had suggested to follow in the office as an outpatient, but she had another episode of true epileptic seizure in the emergency room. For that, she was admitted. Her CBC revealed no leukocytosis with WBC 7, hemoglobin 13.4, platelet count 214. Basic metabolic panel, sodium 133, potassium 5.2, chloride 92, CO2 of 26, BUN 35, creatinine is 8.1 with a glucose of 295. She has had an echocardiogram done in the emergency room. We will obtain an MRI of the brain as well as an EEG and further recommendation will be made accordingly. At this stage, she is taking her insulin along with rosuvastatin. TANIA HILARIO M.D. DOCUMENT CONTROL SPECIALIST DOCUMENT CONTROL SPECIALIST D I MT: Cecilio
[2019-11-03] MEDS: ACETAMINOPHEN 325 MG TABLET 650 MG PO (17:02)
[2019-11-03] MEDS: ROSUVASTATIN 5 MG TABLET PO (17:03)
[2019-11-03] MEDS: INSULIN GLARGINE (*BKC) 100 UNITS/ML 20 UNITS SUB-Q (20:21)
[2019-11-03 20:29] LABS: Glucose Point of Care 253 (65-105)
[2019-11-04] VITALS (23 sets, daily range): BP systolic 122–158; BP diastolic 71–97; PULSE 69–97; RESP 14–16; TEMP 36.2–37; O2SAT 99
[2019-11-04 06:23] LABS: Basophils Absolute Auto 0.1 K/mm3 (0.0-0.1); Basophils Percent Auto 0.9 % (0.2-1.2); Eosinophils Absolute Auto 0.3 K/mm3 (0-0.3); Eosinophils Percent Auto 5.5 % (0-4.4); Hematocrit 37.6 % (37.0-47.0); Hemoglobin 12.2 g/dL (12.0-15.0); Immature Granulocyte Absolute 0.01 K/mm3 (0.00-0.031); Immature Granulocyte Percent A 0.2 % (0-0.5); Lymphocytes Absolute Auto 2.23 K/mm3 (0.9-3.2); Lymphocytes Percent Auto 39.3 % (18.3-44.2); Mean Corpuscular HGB Conc 32.4 g/dl (32-36); Mean Corpuscular Hemoglobin 30.1 pg (26-34); Mean Corpuscular Volume 92.8 fl (80-100); Mean Platelet Volume 10.1 fl (7.4-10.4); Monocytes Absolute Auto 0.5 K/mm3 (0.1-0.6); Monocytes Percent Auto 7.9 % (2.6-8.5); Neutrophils Absolute Auto 2.6 K/mm3 (1.3-6.7); Neutrophils Percent Auto 46.2 % (45.5-73.1); Platelet Count Result 198 k/mm3 (150-375); Red Blood Count 4.05 M/mm3 (4.2-5.4); Red Cell Distribution Width 14.3 % (11.5-14.5); White Blood Count 5.7 K/mm3 (4.5-10.0)
[2019-11-04 06:42] LABS: Albumin Level 3.5 g/dL (3.5-5.1); Blood Urea Nitrogen 46 mg/dL (7-17); Calcium 8.7 mg/dL (8.4-10.2); Carbon Dioxide 26 mmol/L (22-30); Chloride 99 mmol/L (98-107); Estimated CRCL calculation 8 ml/min; Estimated Glomerular Filt Rate 5; Glucose 101 mg/dL (65-105); Magnesium 2.6 mg/dL (1.6-2.3); Potassium 4.3 mmol/L (3.4-5.0); Sodium 134 mmol/L (137-145)
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
[2019-11-04 08:09] LABS: Glucose Point of Care 105 (65-105)
[2019-11-04] MEDS: allopurinoL 50 MG TABLET 150 MG PO (09:13)
[2019-11-04] MEDS: IRBESARTAN 150 MG TABLET 300 MG PO (09:13)
[2019-11-04] MEDS: ACETAMINOPHEN 325 MG TABLET 650 MG PO (09:16)
[2019-11-04] MEDS: levETIRAcetam 500 MG TABLET PO (11:09)
[2019-11-04] MEDS: INSULIN ASPART (*BKC) 100 UNITS/ML SUB-Q (11:11)
[2019-11-04 11:35] LABS: Glucose Point of Care 203 (65-105)
--- NOTE | 2019-11-04 16:23 | PM.DS ---
DS: Admitting Diagnosis Admitting Diagnosis Admitting Diagnosis: Unspecified convulsions DS: Discharge Diagnosis Discharge Diagnosis (1) Observed seizure-like activity: Code(s): R56.9 - Unspecified convulsions Status: Acute Assessment and Plan: Date of Service 11/04/19 Ms. Trujillo is a 49yo F with history of end-stage renal disease on hemodialysis, type 2 diabetes mellitus, hypertension who presented to the ED for evaluation of seizure-like activity. She noted that she began having these episodes in April 2019, described by family as 30-second episodes of staring off, will not respond to her name, fidgets with her hands, grinds her teeth, sometimes makes a moaning noise, then she regains consciousness seemingly without a postictal state. Patient denies any prodrome in symptoms and cannot tell when an episode is coming on. She describes that she does not realize she had an episode unless told by family. She lives with her mother who is the witness to most of these episodes. Her mother brought her to the ER for evaluation because she had 3 episodes 11/01 that were longer and more intense , lasting 1-2 minutes each. She more recently had been following with Dr. Williamson and had an outpatient EEG which was seemingly unremarkable. She was again evaluated by Dr. Williamson here at the hospital and has been started on Keppra. MRI brain shows some evidence consistent with chronic small vessel ischemic disease, otherwise no acute intracranial abnormality. She had no further seizure activity while here. She was hemodynamically stable for discharge 11/04/2019 with instructions to follow-up with Dr. Williamson as well as her PCP. She is receiving hemodialysis today prior to discharge and will remain on her MWF schedule. Consultations: -- Neurology - Dr Williamson (2) ESRD (end stage renal disease) on dialysis: Code(s): N18.6 - End stage renal disease; Z99.2 - Dependence on renal dialysis Status: Chronic Assessment and Plan: Patient is on hemodialysis MWF at [facility] and follows with Dr. Garcia. She is receiving hemodialysis here today 11/03 prior to discharge. She describes having an upcoming procedure later this month for peritoneal dialysis catheter placement. (3) Diabetes: Qualifiers: Diabetes mellitus type: type 2 Diabetes mellitus superintendent terminal insulin use: with superintendent terminal use Diabetes mellitus complication status: without complication Qualified Code(s): E11.9 - Type 2 diabetes mellitus without complications; Z79.4 - half-way (current) use of insulin Code(s): E11.9 - Type 2 diabetes mellitus without complications Status: Chronic Assessment and Plan: Blood sugars appropriate maintained on her home Lantus. (4) Hypertension: Qualifiers: Hypertension type: unspecified Qualified Code(s): I10 - Essential (primary) hypertension Code(s): I10 - Essential (primary) hypertension Status: Chronic Assessment and Plan: Blood pressures are stable maintained on her home irbesartan. (5) Mixed hyperlipidemia: Code(s): E78.2 - Mixed hyperlipidemia Status: Chronic Assessment and Plan: Continue home statin therapy. (6) Hyperkalemia: Code(s): E87.5 - Hyperkalemia Status: Acute Assessment and Plan: Mild, resolved prior to discharge. DS: Summary Time Spent with Patient Time attestation: Total time spent providing and/or coordinating discharge services: 40 minutes Exam Narrative: Exam Narrative: Last Vital Signs Temp 98.3 F 11/04/19 15:50 Pulse 94 11/04/19 15:50 Resp 16 11/04/19 15:50 BP 125/83 11/04/19 15:50 Pul
--- NOTE | 2019-11-04 16:35 | PM.EVENT ---
Event Note Event Note Event Note: On dialysis and tolerating it well. Blood pressure is good. Removing about 2liters. She was seen at the noon.
[2019-11-04 16:48] LABS: Glucose Point of Care 163 (65-105)
[2019-11-04] MEDS: ROSUVASTATIN 5 MG TABLET PO (17:25)
== END 2019-11-04 17:40 | disposition home or self-care (01) ==
LOC: ANHED 22:24 → ANH3MED 11-03 05:39
PROVIDERS: Admitting Provider Internal Medicine; Emergency Provider Emergency Medicine; PCP Family Medicine; Visit Provider Physician Assistant
DX: R56.9 Unspecified convulsions (principal); E11.22 Type 2 diabetes mellitus with diabetic chronic kidney disease; I12.0 Hypertensive chronic kidney disease with stage 5 chronic kidney disease or end stage renal disease; N18.6 End stage renal disease; Z99.2 Dependence on renal dialysis; Z79.4 Long term (current) use of insulin; E78.2 Mixed hyperlipidemia; E11.21 Type 2 diabetes mellitus with diabetic nephropathy; D63.1 Anemia in chronic kidney disease; E87.5 Hyperkalemia; R55 Syncope and collapse
CPT/HCPCS: 36415; 70551; 80048; 80069; 80307; 81001; 81025; 83605; 83735; 84443; 85025; 87086; 87088; 93005; 93880; 94762; 96361; 96374; 99285; A9270; G0257; G0378; J1644; J1815; J1953; J7030; J7120

== ENCOUNTER 2020-04-03 02:23 | Inpatient (IN) | payer MEDICARE, MEDICAID, SELFPAY ==
[2020-04-03] VITALS (16 sets, daily range): BP systolic 117–160; BP diastolic 67–86; PULSE 66–79; RESP 16–25; TEMP 36.4–36.8; O2SAT 93–100; BMI 37.3
--- NOTE | ~2020-04-03 | XR_ITS ---
EXAMINATION: XR chest 1V portable INDICATION: Shortness of breath TECHNIQUE: Portable AP chest at 0435 hours COMPARISON: 07/22/2019 FINDINGS: There are patchy bilateral airspace opacities of the lungs, right greater than left. No ple ural effusion or pneumothorax is identified. The cardiomediastinal silhouette is normal. IMPRESSION: 1. Patchy bilateral airspace opacities, right greater than left, likely pneumonia. Reviewed, dictated and finalized at location A. R [employer] IMPRESSION: 1. Patchy bilateral airspace opacities, right greater than left, likely pneumon ia.
--- NOTE | 2020-04-03 03:08 | ECG_ITS ---
Measurements Intervals [place] Rate: 71 P: 51 MD: 160 QRS: -18 QRSD: 98 T: 12 QT: 440 QTc: 478 Interpretive Statements SINUS RHYTHM LOW QRS VOLTAGE IN PRECORDIAL LEADS BORDERLINE T WAVE ABNORMALITY- INFERIOR LEADS BASELINE WANDER- I, III, AVL BORDERLINE ECG Electronically Signed On 04-03-2020 9:02:50 [employer] by Robert Bocanegra D.O.
--- NOTE | 2020-04-03 03:24 | PC.NURSE ---
this rn attempted to draw blood from pt x1, no success. pt refused to let rn attempt again. pt told to wait in waiting room until room is available, instructed to let us know if anything in health status changes. pt ambulated out of waiting room w/ no difficulty.
[2020-04-03 06:07] LABS: Basophils Percent Auto 0.4 % (0.2-1.2); Eosinophils Absolute Auto 0.1 K/mm3 (0-0.3); Eosinophils Percent Auto 0.9 % (0-4.4); Hematocrit 28.6 % (37.0-47.0); Hemoglobin 9.6 g/dL (12.0-15.0); Immature Granulocyte Absolute 0.05 K/mm3 (0.00-0.031); Immature Granulocyte Percent A 0.9 % (0-0.5); Lymphocytes Absolute Auto 0.93 K/mm3 (0.9-3.2); Lymphocytes Percent Auto 16.3 % (18.3-44.2); Mean Corpuscular HGB Conc 33.6 g/dl (32-36); Mean Corpuscular Hemoglobin 30.3 pg (26-34); Mean Corpuscular Volume 90.2 fl (80-100); Mean Platelet Volume 9.4 fl (7.4-10.4); Monocytes Absolute Auto 0.7 K/mm3 (0.1-0.6); Monocytes Percent Auto 11.8 % (2.6-8.5); Neutrophils Percent Auto 69.7 % (45.5-73.1); Nucleated Red Blood Cells Perc 0.7 % (0.0-0.2); Platelet Count Result 270 k/mm3 (150-375); Red Blood Count 3.17 M/mm3 (4.2-5.4); Red Cell Distribution Width 13.5 % (11.5-14.5); White Blood Count 5.7 K/mm3 (4.5-10.0)
[2020-04-03 06:32] LABS: Anion Gap 18 mmol/L (8-16); Blood Urea Nitrogen 64 mg/dL (7-17); Calcium 6.8 mg/dL (8.4-10.2); Carbon Dioxide 25 mmol/L (22-30); Chloride 95 mmol/L (98-107); Glucose 112 mg/dL (65-105); Potassium 3.3 mmol/L (3.4-5.0); Sodium 138 mmol/L (137-145)
[2020-04-03 06:39] LABS: Alanine Aminotransferase 19 U/L (4-35); Albumin Level 3.1 g/dL (3.5-5.1); Alkaline Phosphatase 62 U/L (38-126); Aspartate Amino Transferase 34 U/L (14-36); Bilirubin,Total 0.5 mg/dL (0.2-1.3); Magnesium 2.6 mg/dL (1.6-2.3)
[2020-04-03 06:41] LABS: INR 1.1; Prothrombin Time 14.7 Seconds (11.1-14.7)
[2020-04-03 06:42] LABS: Partial Thromboplastin Time 39.7 SECONDS (22.3-36.8)
[2020-04-03 06:47] LABS: Estimated CRCL calculation 5 ml/min; Estimated Glomerular Filt Rate 3
[2020-04-03 06:47] LABS: Alveolar/Arterial O2 Gradient 28.2 mmHg; Base Excess ABG -0.2 mEq/l (+/-2.0); Carboxyhemoglobin 0.1 % THb (0-2.0); Fractional Inspired Oxygen 21 %; HCO3 ABG 23.1 mEq/l (22.0-26.0); Methemoglobin ABG 0.2 %THb (0-1.5); Oxygen Content ABG 13.9 %vol (16.0-22.0); Oxygen Saturation ABG 96.7 % (95.0-100.0); Oxyhemoglobin 94.1 % THb (90.0-100.0); PCO2 ABG 33.2 mmHg (35.0-45.0); PO2 ABG 81.8 mmHg (80.0-100.0); Reduced Hemoglobin 5.6 %THb (0-5.0); Total Hemoglobin 10.4 g/dL (12.0-18.0); pH ABG 7.461 (7.350-7.450)
[2020-04-03 06:48] LABS: Modified Allen's Test Pass; Site Drawn LEFT RADIAL
[2020-04-03 07:13] LABS: CRP 19.2 mg/dL (<1.0)
--- NOTE | 2020-04-03 07:48 | ED.SOB ---
HPI - SOB/Dyspnea General Chief Complaint: Shortness of Breath/Dyspnea Stated Complaint: shortness of breath Time Seen by Provider: 04/03/20 04:23 Source: patient Mode of arrival: ambulatory Limitations: no limitations History of Present Illness HPI Narrative: This patient is a 50 year old female with history of ESRD on dialysis, HTN, DM who presents for evaluation of shortness of breath. She states she has not felt well for 1 week. Her symptoms include fatigue, cough, body aches, nausea, and low grade fever. LAst night she developed shortness of breath while she was rest. This worsened with exertion. She denies having chest pain with her shortness. She reports laying in the bed currently she does not feel short of breath. Nursing staff reports she was noticably sob when she walked into the ER. She denies any sick contacts. Related Data Home Medications Medication Instructions Recorded Confirmed allopurinol 300 mg PO DAILY 11/03/19 11/05/19 irbesartan 300 mg PO DAILY 11/03/19 11/05/19 Allergies Allergy/AdvReac Type Severity Reaction Status Date / Time clonidine AdvReac Severe blacking Verified 10/15/19 16:27 out lisinopril AdvReac Severe kidney Verified 10/15/19 16:27 function Review of Systems Review of Systems: All systems reviewed & are unremarkable except as noted in HPI and below Constitutional: Constitutional: Reports chills and Reports fatigue Cardiovascular: Cardiovascular: Denies chest pain Respiratory: Respiratory: Reports cough and Reports dyspnea Gastrointestinal: Gastrointestinal: Denies abdominal pain, Reports diarrhea, Reports nausea and Denies vomiting PMFSH Past Medical History Medical History (Updated 04/03/20 @ 08:32 by Ade Simpson MD) Controlled diabetes mellitus with diabetic nephropathy, with long-term current use of insulin Diabetes End stage renal disease Erythropoietin deficiency anemia Hypertension Surgical History Surgical History H/O tubal ligation 1993 LAP-BAND surgery status 2013 Family History Family History Father Diabetes mellitus Social History Social History Social History: Ms. Trujillo lives at home with her mother in [place]. She denies alcohol, tobacco, or other drug use. 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 PCP is Dr Maria Teresa Ramirez. She designates her mother, Jennifer, as her surrogate decision maker and is full code status. Smoking status: Never smoker Second hand tobacco smoke exposure: No Alcohol intake: never Substance use: never Substance use type: does not use Gender identity (if verbalized by the patient): Female Spiritual care concerns: Yes Agree to blood products: Yes Exam Const: General: no acute distress and alert Orientation/consciousness: patient oriented x3 HENMT: Head: normocephalic and atraumatic Ears: TM's normal bilaterally General nose exam: Normal external nose present and Normal nares present Face and sinus: normal facial exam, sinuses nontender and face symmetric Mouth: Yes Normal oral and palatal mucosa present, Yes lip normal, Yes oropharynx normal and Yes moist mucous membranes Throat: posterior oropharynx normal Eyes: Pupils: Equal, round and reactive pupils present EOM: EOMs intact bilaterally Chest: Chest palpation & inspection: normal inspection of the chest Resp: Effort & Inspection: normal respiratory effort, no retractions and no use of accessory muscles Auscultation: clear to auscultation bilaterally and diminished lung sounds Cardio: Rate: regular rate Rhythm: regular rhythm Heart sounds: no murmurs GI: GI Palp: Yes Soft to palpation, No Tenderness to palpation present (GI), No Guarding due to palpation present (GI) and No Rigid due to palpation Aus
--- NOTE | 2020-04-03 08:35 | PC.NURSE ---
Pt is refusing blood cultures at this time per blood draw personnel and this RN.
--- NOTE | 2020-04-03 10:17 | PM.CNNEP ---
Assessment and Plan Assessment and plan (1) End stage renal disease: Code(s): N18.6 - End stage renal disease Status: Chronic Assessment and Plan: resume CCPD tonight follow electrolytes, volume status and clearance (2) Pneumonia: Code(s): J18.9 - Pneumonia, unspecified organism Status: Acute Assessment and Plan: as noted by admission CXR follow-up on blood cultures on antibiotics (3) Person under investigation for COVID-19: Code(s): Z20.828 - Contact with and (suspected) exposure to other viral communicable diseases Status: Acute Assessment and Plan: CXR appearance per ER provider concerning for COVID-19 infection COVID-19 testing pending contact/isolation precautions for now (4) Hypokalemia: Code(s): E87.6 - Hypokalemia Status: Acute Assessment and Plan: replete as needed magnesium okay follow trend (5) Anemia: Code(s): D64.9 - Anemia, unspecified Status: Acute Assessment and Plan: related to ESRD start Epogen tomorrow follow trend of H/H (6) Hypocalcemia: Code(s): E83.51 - Hypocalcemia Status: Acute Assessment and Plan: etiology? check PTH and vitamin D corrected calcium is 7.5 (7) Diabetes: Code(s): E11.9 - Type 2 diabetes mellitus without complications Status: Chronic Assessment and Plan: follow accucheks on SSI Will continue to follow. History of Present Illness Reason for Consult Consult date: 04/03/20 Reason for consult: end stage renal disease Chief Complaint Chief complaint: Pneumonia/PUI COVID History of Present Illness Narrative: The patient is a 50-year-old female with a past medical history as outlined below who presented to [facility] Emergency room with complaints of shortness of breath The patient states that for the last week that she has not felt very well. She states she has been having symptoms of fatigue, cough, generalized body aches, nausea, and a subjective low-grade fever. However, yesterday evening, she noted the shortness of breath seem to be worse both at rest as well as with exertion. She gave no symptoms with regard to chest pain when the shortness of breath occurred. Apparently, when she walked into the ER, nursing staff noted that she seemed to be visibly short of breath as well. Workup and evaluation in the emergency room demonstrated the patient to be hemodynamically stable and actually did not appear to be significantly short of breath when she was sitting up in the ER [facility]. Routine blood test demonstrated labs consistent with her known history of end-stage renal disease and her CBC was unremarkable aside from mild anemia. Her chest x-ray demonstrated patchy bilateral airspace opacities concerning for pneumonia. The ER physician was concerned as the appearance of the chest x-ray was somewhat suggestive of COVID-19 infection. Appropriate cultures were obtained including COVID-19 testing and the patient was started on antibiotics for presumed community-acquired pneumonia. The patient was subsequenty admitted to the hospital for further evaluation and therapy. Renal consultation was requested due to the patient's end-stage renal disease. The patient recently started renal replacement therapy/dialysis earlier this year for her kidney disease. She was initially started on incenter hemodialysis and recently converted to peritoneal dialysis. From what she tells me, she has been doing fairly well with peritoneal dialysis although she does admit to not doing her treatment last night due to the issues/problems relating to her shortness of breath. Currently, at the time of my visit, she does not appear to be in any distress. Review of Systems Review of Systems: Narrative: As per HPI. [facility] Past Medical History Medical History (Updated 04/03/20 @ 15:34 by Julio Menendez MD) End-s
--- NOTE | 2020-04-03 10:57 | PC.NURSE ---
This patient, Heaven Trujillo, was admitted to 3 Med Surg Room 309-01. Patient/family oriented to hospital policies and general routines including ID bracelet, bed and alarms, visiting hours, pain management, procedures, bathroom and other care routines, personal items, smoking policy, room service/diet, and visiting hours. Information on how to activate the Rapid Response Team has been discussed. Patient/Family are encouraged to report perceived risks to care and to ask questions if they do not understand what they are told or what they should do.
--- NOTE | 2020-04-03 13:30 | PM.IMHP ---
H&P: HPI History of Present Illness Date/Time: 04/03/20 13:00 Chief complaint: Shortness of breath. Narrative: Heaven Trujillo is a 50-year-old female with end-stage renal disease on peritoneal dialysis, insulin-dependent diabetes, hypertension, anemia, and history of seizures who presented to the emergency department earlier this morning from home with complaints of shortness of breath. She has been feeling mildly unwell for approximately 1 weeks time with symptoms to include fatigue, body aches, nausea, cough, and low-grade fever. Last night she began feeling short of breath even at rest and thus she presented for evaluation as her symptoms continued through today. With further questioning it sounds as though she may have skipped peritoneal dialysis last night due to feeling poorly, but has otherwise been compliant although this is a relatively recent thing for the patient. She denies sick contacts and known exposure to those positive for COVID-19. No chest pain, pleuritic pain, or palpitations. She has had a decrease in appetite and nausea but no vomiting. Her sense of smell and taste was diminished last week but has since improved. No diarrhea or dysuria. Review of Systems Review of Systems: Narrative: Twelve systems were reviewed with pertinent positives and negatives as per HPI. Except as documented, all other systems were reviewed and are negative. [facility] Past Medical History Medical History End-stage renal disease on peritoneal dialysis Erythropoietin deficiency anemia Gout Hypertension Insulin dependent type 2 diabetes mellitus Hemoglobin A1c was 6.8% in July 2019. Mixed hyperlipidemia Seizure disorder (~10/2019) Surgical History Surgical History History of laparoscopic adjustable gastric banding (~2013) History of tubal ligation (~1993) Family History Family History Father Diabetes mellitus Social History Social History (Updated 04/04/20 @ 00:01 by Hermelinda Pedersen PA-C) Social History: Ms. Trujillo lives at home with her mother in [place]. 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 She denies alcohol, tobacco, or other drug abuse. She designates her mother, Jennifer, as her surrogate decision maker and she wishes to be a full code. Second hand tobacco smoke exposure: No Spiritual care concerns: No Agree to blood products: Yes Meds Home Medications and Allergies Home Medications Medication Instructions Recorded Confirmed Type insulin glargine 100 unit/mL (3 20 unit SUB-Q DAILY 30 Days #6 ml 10/02/19 04/03/20 Rx mL) subcutaneous pen allopurinol 300 mg PO DAILY 11/03/19 04/03/20 History irbesartan 300 mg PO DAILY 11/03/19 04/03/20 History levetiracetam [Keppra] 500 mg PO Q12HR 30 Days #60 tablet 11/04/19 04/03/20 Rx rosuvastatin 5 mg tablet 5 mg PO .evening #30 tablet 11/05/19 04/03/20 Rx pen needle, diabetic 31 gauge x #90 each 12/07/19 04/03/20 Rx / Allergies Allergy/AdvReac Type Severity Reaction Status Date / Time clonidine AdvReac Severe blacking Verified 04/03/20 15:20 out lisinopril AdvReac Severe kidney Verified 04/03/20 15:20 function Vital Signs Vital Signs - 24 hr 04/03/20 02:29 04/03/20 05:00 04/03/20 05:58 Temperature 97.5 F L 98 F Pulse Rate 78 70 72 Respiratory Rate 18 16 Blood Pressure 160/85 H 135/85 Pulse Oximetry 96 96 04/03/20 07:03 04/03/20 07:17 04/03/20 07:45 Temperature Pulse Rate 68 79 67 Respiratory Rate 24 H 23 H 23 H Blood Pressure 118/67 137/83 Pulse Oximetry 93 98 95 04/03/20 08:15 04/03/20 08:30 04/03/20 08:45 Temperature Pulse Rate 77 66 67 Respiratory Rate 25 H 20 22 H Blood Pressure Pulse Oximetry 93 95 94 04/03/20 09:00 04/03/20 09:15 04/03/20 09:40 Temperature Pulse Ra
[2020-04-03 17:27] LABS: Glucose Point of Care 158 (65-105)
[2020-04-03] MEDS: IRBESARTAN 150 MG TABLET 300 MG PO (17:34)
[2020-04-03] MEDS: POTASSIUM CHLORIDE 20 MEQ TABLET PO (17:34)
[2020-04-03] MEDS: ROSUVASTATIN 5 MG TABLET PO (17:35)
[2020-04-03] MEDS: levETIRAcetam 500 MG TABLET PO (21:19)
[2020-04-03] MEDS: HEPARIN SODIUM 5,000 UNITS/ML VIAL 5000 UNITS SUB-Q (21:19)
[2020-04-03 21:30] LABS: Glucose Point of Care 187 (65-105)
[2020-04-03] MEDS: ONDANSETRON INJ 4 MG/2 ML VIAL IV PUSH (22:14)
[2020-04-03 22:24] LABS: Appearance Peritoneal Fluid Clear (Clear); Source Peritoneal Fluid Peritoneal Fluid
[2020-04-03 22:25] LABS: Color Peritoneal Fluid Yellow (Colorless)
[2020-04-03 22:26] LABS: Lymphocytes Peritoneal Fluid 45 %; Mesothelial Cells Peritoneal Fluid 3 %; Monocytes Peritoneal Fluid 45 %; Neutrophils Peritoneal Fluid 7 % (0-25); Nucleated Cells Peritoneal Flu 23 /uL (0-500); RBC Peritoneal Fluid 0 /uL (0-100000)
[2020-04-03 23:54] LABS: SARS-CoV-2 RNA PCR Positive
[2020-04-04] VITALS (7 sets, daily range): BP systolic 116–135; BP diastolic 70–87; PULSE 68–75; RESP 16–20; TEMP 36.3–36.9; O2SAT 94–99
[2020-04-04 06:52] LABS: Basophils Percent Auto 0.2 % (0.2-1.2); Eosinophils Absolute Auto 0.1 K/mm3 (0-0.3); Eosinophils Percent Auto 1.7 % (0-4.4); Hematocrit 27.3 % (37.0-47.0); Hemoglobin 8.9 g/dL (12.0-15.0); Immature Granulocyte Absolute 0.06 K/mm3 (0.00-0.031); Immature Granulocyte Percent A 1.1 % (0-0.5); Lymphocytes Absolute Auto 0.73 K/mm3 (0.9-3.2); Lymphocytes Percent Auto 13.8 % (18.3-44.2); Mean Corpuscular HGB Conc 32.6 g/dl (32-36); Mean Corpuscular Hemoglobin 29.1 pg (26-34); Mean Corpuscular Volume 89.2 fl (80-100); Mean Platelet Volume 9.2 fl (7.4-10.4); Monocytes Absolute Auto 0.6 K/mm3 (0.1-0.6); Monocytes Percent Auto 10.8 % (2.6-8.5); Neutrophils Absolute Auto 3.8 K/mm3 (1.3-6.7); Neutrophils Percent Auto 72.4 % (45.5-73.1); Nucleated Red Blood Cells Perc 0.4 % (0.0-0.2); Platelet Count Result 289 k/mm3 (150-375); Red Blood Count 3.06 M/mm3 (4.2-5.4); Red Cell Distribution Width 13.5 % (11.5-14.5); White Blood Count 5.3 K/mm3 (4.5-10.0)
[2020-04-04 07:04] LABS: Hemoglobin A1C 7.3 % (<5.7)
[2020-04-04 07:14] LABS: Anion Gap 16 mmol/L (8-16); Blood Urea Nitrogen 63 mg/dL (7-17); Calcium 7.2 mg/dL (8.4-10.2); Carbon Dioxide 26 mmol/L (22-30); Chloride 94 mmol/L (98-107); Estimated CRCL calculation 5 ml/min; Estimated Glomerular Filt Rate 3; Glucose 189 mg/dL (65-105); Lactate Dehydrogenase 764 U/L (313-618); Magnesium 2.5 mg/dL (1.6-2.3); Parathyroid Intact 921.8 pg/mL (7.5-53.5); Potassium 3.7 mmol/L (3.4-5.0); Sodium 136 mmol/L (137-145)
[2020-04-04 08:09] LABS: Thyroid Stimulating Hormone Reflex 0.505 uIU/mL (0.465-4.68)
[2020-04-04 08:11] LABS: Vitamin D 25 Hydroxy < 12.8 ng/mL
[2020-04-04 08:13] LABS: CRP 16.1 mg/dL (<1.0)
[2020-04-04 08:18] LABS: Glucose Point of Care 179 (65-105)
[2020-04-04] MEDS: HEPARIN SODIUM 5,000 UNITS/ML VIAL 5000 UNITS SUB-Q ×2 (09:59→20:52)
[2020-04-04] MEDS: levETIRAcetam 500 MG TABLET PO ×2 (09:59→20:52)
[2020-04-04] MEDS: allopurinoL 300 MG TABLET PO (10:25)
[2020-04-04 12:12] LABS: Glucose Point of Care 168 (65-105)
[2020-04-04 14:41] LABS: Device ROOM AIR
--- NOTE | 2020-04-04 15:51 | P.PNNP_ITS ---
Progress Note: A&P Assessment and Plan (1) End stage renal disease: Code(s): N18.6 - End stage renal disease Status: Chronic Assessment and Plan: * On CCPD * volume status looks good (2) Pneumonia: Code(s): J18.9 - Pneumonia, unspecified organism Status: Acute Assessment and Plan: * as noted by admission CXR * follow-up on blood cultures * on antibiotics (3) Person under investigation for COVID-19: Code(s): Z20.828 - Contact with and (suspected) exposure to other viral communicable diseases Status: Acute Assessment and Plan: * CXR appearance per ER provider concerning for COVID-19 infection * COVID-19 test was positive. * she should get dexamethasone. * consider remdesivir if she worsens or shows bad trends on labs. * Continue isolation (4) Hypokalemia: Code(s): E87.6 - Hypokalemia Status: Acute Assessment and Plan: * K okay (5) Anemia: Code(s): D64.9 - Anemia, unspecified Status: Acute Assessment and Plan: * related to ESRD * Epo ordered. * follow trend of H/H (6) Hypocalcemia: Code(s): E83.51 - Hypocalcemia Status: Acute Assessment and Plan: * etiology? * check PTH and vitamin D * corrected calcium is 7.5 (7) Diabetes: Code(s): E11.9 - Type 2 diabetes mellitus without complications Status: Chronic Assessment and Plan: * follow accucheks * on SSI Subjective Date/time seen: 04/04/20 15:51 Interval history: Patient is feeling better since admission. She has no shortness of breath. She is eating well. She is on peritoneal dialysis and tolerating it well. 1400cc ultrafiltration for last night. She was seen at 3:30 p.m. Review of Systems Cardiovascular: Cardiovascular: Reports no additional cardiovascular complaints Respiratory: Respiratory: Reports no additional respiratory complaints Gastrointestinal: Gastrointestinal: Reports no additional gastrointestinal complaints Genitourinary: Genitourinary: Reports no additional female genitourinary complaints Exam Narrative: Exam Narrative: WDWN in NAD skin no rash head ncat ext no edema. Objective Data Vital Signs Vital Signs: Vital Signs - 24 hr 04/03/20 16:00 04/03/20 20:00 11/16/20 00:00 Temperature 36.7 C 36.8 C 36.4 C L Pulse Rate 72 70 70 Respiratory Rate 18 20 20 Blood Pressure 140/85 126/73 123/70 Pulse Oximetry 97 100 99 04/04/20 04:00 04/04/20 08:00 04/04/20 12:00 Temperature 36.9 C 36.3 C L 36.5 C Pulse Rate 68 69 74 Respiratory Rate 20 18 18 Blood Pressure 130/83 135/87 130/84 Pulse Oximetry 98 94 96 Intake/Output Intake/Output: Intake & Output 04/01/20 04/02/20 04/03/20 04/04/20 23:59 23:59 23:59 23:59 Intake Total 1190 310 Output Total 1382 Balance 1190 -1072 Meds/Results Medications: Active Medications Generic Name Dose Route Start Last Admin Trade Name Freq PRN Reason Stop Dose Admin Albuterol 2 puff 04/03/20 13:33 Albuterol Sulfate (*Sp) Aerosol 1 Puff INHALATION QIDRT PRN Shortness Of [place]
--- NOTE | 2020-04-04 15:51 | PM.PNNEP ---
Progress Note: A&P Assessment and Plan (1) End stage renal disease: Code(s): N18.6 - End stage renal disease Status: Chronic Assessment and Plan: On CCPD volume status looks good (2) Pneumonia: Code(s): J18.9 - Pneumonia, unspecified organism Status: Acute Assessment and Plan: as noted by admission CXR follow-up on blood cultures on antibiotics (3) Person under investigation for COVID-19: Code(s): Z20.828 - Contact with and (suspected) exposure to other viral communicable diseases Status: Acute Assessment and Plan: CXR appearance per ER provider concerning for COVID-19 infection COVID-19 test was positive. she should get dexamethasone. consider remdesivir if she worsens or shows bad trends on labs. Continue isolation (4) Hypokalemia: Code(s): E87.6 - Hypokalemia Status: Acute Assessment and Plan: K okay (5) Anemia: Code(s): D64.9 - Anemia, unspecified Status: Acute Assessment and Plan: related to ESRD Epo ordered. follow trend of H/H (6) Hypocalcemia: Code(s): E83.51 - Hypocalcemia Status: Acute Assessment and Plan: etiology? check PTH and vitamin D corrected calcium is 7.5 (7) Diabetes: Code(s): E11.9 - Type 2 diabetes mellitus without complications Status: Chronic Assessment and Plan: follow accucheks on SSI Subjective Date/time seen: 04/04/20 15:51 Interval history: Patient is feeling better since admission. She has no shortness of breath. She is eating well. She is on peritoneal dialysis and tolerating it well. 1400cc ultrafiltration for last night. She was seen at 3:30 p.m. Review of Systems Cardiovascular: Cardiovascular: Reports no additional cardiovascular complaints Respiratory: Respiratory: Reports no additional respiratory complaints Gastrointestinal: Gastrointestinal: Reports no additional gastrointestinal complaints Genitourinary: Genitourinary: Reports no additional female genitourinary complaints Exam Narrative: Exam Narrative: WDWN in NAD skin no rash head ncat ext no edema. Objective Data Vital Signs Vital Signs: Vital Signs - 24 hr 04/03/20 16:00 04/03/20 20:00 04/04/20 00:00 Temperature 36.7 C 36.8 C 36.4 C L Pulse Rate 72 70 70 Respiratory Rate 18 20 20 Blood Pressure 140/85 126/73 123/70 Pulse Oximetry 97 100 99 04/04/20 04:00 04/04/20 08:00 04/04/20 12:00 Temperature 36.9 C 36.3 C L 36.5 C Pulse Rate 68 69 74 Respiratory Rate 20 18 18 Blood Pressure 130/83 135/87 130/84 Pulse Oximetry 98 94 96 Intake/Output Intake/Output: Intake & Output 04/01/20 04/02/20 04/03/20 04/04/20 23:59 23:59 23:59 23:59 Intake Total 1190 310 Output Total 1382 Balance 1190 -1072 Meds/Results Medications: Active Medications Generic Name Dose Route Start Last Admin Trade Name Freq PRN Reason Stop Dose Admin Albuterol 2 puff 04/03/20 13:33 Albuterol Sulfate (*Sp) Aerosol 1 Puff INHALATION QIDRT PRN Shortness Of Breath Allopurinol 300 mg 04/04/20 09:00 04/04/20 10:25 Allopurinol 300 Mg Tablet PO 300 mg DAILY MARIELA Administration Dextrose 12.5 gm 04/03/20 13:33 Dextrose 50% 25 Gm/50 Ml Syringe IV PUSH PRN PRN Hypoglycemia Protocol Epoetin Darin-epbx 5,000 units 04/04/20 18:00 Epoetin Darin-Epbx 10,000 Units/Ml Vial SUB-Q [id number] MARIELA Glucagon 1 mg 04/03/20 13:33 Glucagon For Inj 1 Mg Vial IM PRN PRN Hypoglycemia Protocol Glucose 15 gm 04/03/20 13:33 Glucose Oral Gel 15 Gm Of Glucse In 37.5 Gm Tube PO PRN PRN Hypoglycemia Protocol Heparin Sodium (Porcine) 5,000 units 04/03/20 21:00 04/04/20 09:59 Heparin Sodium 5,000 Units/Ml Vial SUB-Q 5,000 units Q12HR MARIELA Administration Dextrose 1,000 mls @ 100 mls/hr 04/03/20 13:33 Dextrose 5% 1,000 Ml IVPB
[2020-04-04 17:05] LABS: Add Urine Microscopic? YES; Appearance Urine Cloudy (Clear); Bilirubin Urine Negative (Negative); Blood Urine 3+ (Negative); Color Urine Red (Yellow); Glucose Urine UA Negative (Negative); Ketones Urine Negative (Negative); Leukocyte Esterase Ur Trace LEU/UL (Negative); Mucus Urine Rare /lpf; Nitrate Urine Negative (Negative); Protein Urine 3+ mg/dL (Negative); RBC Urine >75 /hpf (0-2); Specific Grav Ur 1.017 (1.001-1.035); Squamous Epithelial Cell Urine Many /hpf (Few); Urobilinogen Urine Negative mg/dL (<2.0); WBC Clumps Urine Present /HPF; WBC Urine >75 /hpf
--- NOTE | 2020-04-04 17:46 | P.PNIM_ITS ---
Progress Note: A&P Assessment and Plan (1) End stage renal disease: Code(s): N18.6 - End stage renal disease Status: Chronic Assessment and Plan: * On CCPD * volume status looks good (2) Pneumonia: Code(s): J18.9 - Pneumonia, unspecified organism Status: Acute Assessment and Plan: * as noted by admission CXR * bilateral pneumonia for which she has been started on empiric azithromycin and ceftriaxone * follow-up on blood cultures, sputum cultures * ordered UA * on antibiotics (3) Person under investigation for COVID-19: Code(s): Z20.828 - Contact with and (suspected) exposure to other viral communicable diseases Status: Acute Assessment and Plan: * CXR appearance per ER provider concerning for COVID-19 infection * COVID-19 test was positive. * she should get dexamethasone - started. * person under investigation for COVID-19, * continue airborne, droplet, and contact precautions pending SARS-CoV-2 by PCR. * consider remdesivir if she worsens or shows bad trends on labs - but may affect her liver function significantly due to her poor renal function/PD. * Continue isolation (4) Hypokalemia: Code(s): E87.6 - Hypokalemia Status: Acute Assessment and Plan: * potassium improved to 3.7 today * tolerating PD well, * Nephrology following (5) Anemia: Code(s): D64.9 - Anemia, unspecified Status: Acute Assessment and Plan: * related to ESRD * Epo ordered. [employer] treating. Dr. Menendez is starting her on Epogen. * no history to suggest blood loss * follow trend of H/H * H/H 8.9/ stable (6) Hypocalcemia: Code(s): E83.51 - Hypocalcemia Status: Acute Assessment and Plan: * etiology? 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 * vitamin D <12 (treaing Deficiency) (7) Diabetes: Code(s): E11.9 - Type 2 diabetes mellitus without complications Status: Chronic Assessment and Plan: * follow accucheks * Continue basal insulin * Initiate sliding scale insulin, * hypoglycemic protocol. * Check hemoglobin A1c=7.3 now, worse than her July level A1C=6.8 * glucose 189 Subjective Date/time seen: 04/04/20 17:46 Interval history: Patient is feeling better since admission. She was on the telephone during my visit and examination with her. She did not want to get off the phone. She was not dyspneic during conversation. Her PD catheter site was without redness or open areas or drainage or pain. Abdomen soft and palpable, not tender, no guarding. She informed me that she does have a cough, upper respiratory phlegm, but is not requiring O2 at this time. Started her on Dexamethasone, but not the antiviral at this time. Monitoring serial labs. She has no shortness of breath.She is eating well. She is on peritoneal dialysis and tolerating it well. Intake and output shows IN 2550ml with 1382 ml ultrafiltration out. Review of Systems Review of Systems: All systems reviewed & are unremarkable except as noted in HPI and below Constitutional: Constitutional: Reports chills and Reports fatigue Eyes: Eyes: Denies exophthalmos, Denies diplopia, Denies floaters and Denies loss of peripheral vision ENT: Denies facial pain, Denies headache(s), Denies odynophagia and Denies tinnitus Cardiovascular: Card
--- NOTE | 2020-04-04 17:46 | PM.IMPN ---
Progress Note: A&P Assessment and Plan (1) End stage renal disease: Code(s): N18.6 - End stage renal disease Status: Chronic Assessment and Plan: On CCPD volume status looks good (2) Pneumonia: Code(s): J18.9 - Pneumonia, unspecified organism Status: Acute Assessment and Plan: as noted by admission CXR bilateral pneumonia for which she has been started on empiric azithromycin and ceftriaxone follow-up on blood cultures, sputum cultures ordered UA on antibiotics (3) Person under investigation for COVID-19: Code(s): Z20.828 - Contact with and (suspected) exposure to other viral communicable diseases Status: Acute Assessment and Plan: CXR appearance per ER provider concerning for COVID-19 infection COVID-19 test was positive. she should get dexamethasone - started. person under investigation for COVID-19, continue airborne, droplet, and contact precautions pending SARS-CoV-2 by PCR. consider remdesivir if she worsens or shows bad trends on labs - but may affect her liver function significantly due to her poor renal function/PD. Continue isolation (4) Hypokalemia: Code(s): E87.6 - Hypokalemia Status: Acute Assessment and Plan: potassium improved to 3.7 today tolerating PD well, Nephrology following (5) Anemia: Code(s): D64.9 - Anemia, unspecified Status: Acute Assessment and Plan: related to ESRD Epo ordered. [employer] treating. Dr. Menendez is starting her on Epogen. no history to suggest blood loss follow trend of H/H H/H 8.9// stable (6) Hypocalcemia: Code(s): E83.51 - Hypocalcemia Status: Acute Assessment and Plan: etiology? 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 vitamin D <12 (treaing Deficiency) (7) Diabetes: Code(s): E11.9 - Type 2 diabetes mellitus without complications Status: Chronic Assessment and Plan: follow accucheks Continue basal insulin Initiate sliding scale insulin, hypoglycemic protocol. Check hemoglobin A1c=7.3 now, worse than her July level A1C=6.8 glucose 189 Subjective Date/time seen: 04/04/20 17:46 Interval history: Patient is feeling better since admission. She was on the telephone during my visit and examination with her. She did not want to get off the phone. She was not dyspneic during conversation. Her PD catheter site was without redness or open areas or drainage or pain. Abdomen soft and palpable, not tender, no guarding. She informed me that she does have a cough, upper respiratory phlegm, but is not requiring O2 at this time. Started her on Dexamethasone, but not the antiviral at this time. Monitoring serial labs. She has no shortness of breath.She is eating well. She is on peritoneal dialysis and tolerating it well. Intake and output shows IN 2550ml with 1382 ml ultrafiltration out. Review of Systems Review of Systems: All systems reviewed & are unremarkable except as noted in HPI and below Constitutional: Constitutional: Reports chills and Reports fatigue Eyes: Eyes: Denies exophthalmos, Denies diplopia, Denies floaters and Denies loss of peripheral vision ENT: Denies facial pain, Denies headache(s), Denies odynophagia and Denies tinnitus Cardiovascular: Cardiovascular: Reports no additional cardiovascular complaints, Denies chest pain and Reports dyspnea Respiratory: Respiratory: Reports as per HPI, Reports no additional respiratory complaints, Reports change in phlegm color, Reports chest congestion, Reports cough and Reports excessive phlegm production Gastrointestinal: Gastrointestinal: Reports as per HPI, Reports no additional gastrointestinal complaints, Denies abdominal pain, Denies diarrhea, Denies nausea, Denies vomiting and Rep
[2020-04-04 18:06] LABS: Glucose Point of Care 141 (65-105)
[2020-04-04] MEDS: DEXAMETHASONE 2 MG TABLET 6 MG PO (18:33)
[2020-04-04] MEDS: EPOETIN ALFA-EPBX 10,000 UNITS/ML VIAL 5000 UNITS SUB-Q (18:33)
[2020-04-04] MEDS: ROSUVASTATIN 5 MG TABLET PO (18:34)
[2020-04-04] MEDS: ALBUTEROL SULFATE (*SP) INHALER 1 PUFF (21:09)
[2020-04-04] MEDS: guaiFENesin 12 HR 600 MG TABCR PO (21:16)
[2020-04-04 22:10] LABS: Glucose Point of Care 219 (65-105)
[2020-04-05] VITALS: BP 143/88; PULSE 68; RESP 20; TEMP 36.6; O2SAT 98
[2020-04-05 01:35] VITALS: BP 143/88; PULSE 68; RESP 20; TEMP 36.6
[2020-04-05 04:00] VITALS: BP 149/87; PULSE 71; RESP 20; TEMP 36.3; O2SAT 97
[2020-04-05 06:25] LABS: Hematocrit 28.6 % (37.0-47.0); Hemoglobin 9.3 g/dL (12.0-15.0); Mean Corpuscular HGB Conc 32.5 g/dl (32-36); Mean Corpuscular Hemoglobin 29.2 pg (26-34); Mean Corpuscular Volume 89.9 fl (80-100); Mean Platelet Volume 9.2 fl (7.4-10.4); Platelet Count Result 334 k/mm3 (150-375); Red Blood Count 3.18 M/mm3 (4.2-5.4); Red Cell Distribution Width 13.2 % (11.5-14.5); White Blood Count 3.7 K/mm3 (4.5-10.0)
[2020-04-05 06:45] LABS: Alanine Aminotransferase 25 U/L (4-35); Anion Gap 19 mmol/L (8-16); Blood Urea Nitrogen 67 mg/dL (7-17); CRP > 9.0 mg/dL (<1.0); Calcium 7.4 mg/dL (8.4-10.2); Carbon Dioxide 24 mmol/L (22-30); Chloride 91 mmol/L (98-107); Glucose 328 mg/dL (65-105); Lactate Dehydrogenase 718 U/L (313-618); Potassium 4.2 mmol/L (3.4-5.0); Sodium 134 mmol/L (137-145)
[2020-04-05 06:52] LABS: Estimated CRCL calculation 5 ml/min; Estimated Glomerular Filt Rate 3
[2020-04-05] MEDS: INSULIN GLARGINE (*BKC) 100 UNITS/ML 20 UNITS SUB-Q (07:56)
[2020-04-05] MEDS: guaiFENesin 12 HR 600 MG TABCR PO (07:57)
[2020-04-05] MEDS: IRBESARTAN 150 MG TABLET 300 MG PO (07:57)
[2020-04-05] MEDS: allopurinoL 300 MG TABLET PO (07:58)
[2020-04-05] MEDS: levETIRAcetam 500 MG TABLET PO (07:58)
[2020-04-05] MEDS: HEPARIN SODIUM 5,000 UNITS/ML VIAL 5000 UNITS SUB-Q (07:59)
[2020-04-05 08:00] VITALS: BP 147/92; PULSE 58; RESP 16; TEMP 36.4; O2SAT 93; O2SAT 97
[2020-04-05] MEDS: INSULIN ASPART (*BKC) 100 UNITS/ML SUB-Q ×2 (08:12→12:18)
--- NOTE | 2020-04-05 08:33 | P.PNNP_ITS ---
Progress Note: A&P Assessment and Plan (1) End stage renal disease: Code(s): N18.6 - End stage renal disease Status: Chronic Assessment and Plan: * On CCPD * volume status looks good * Continue the same dialysis (2) Pneumonia: Code(s): J18.9 - Pneumonia, unspecified organism Status: Acute Assessment and Plan: * as noted by admission CXR * follow-up on blood cultures * on antibiotics * On no oxygen. (3) Person under investigation for COVID-19: Code(s): Z20.828 - Contact with and (suspected) exposure to other viral communicable diseases Status: Acute Assessment and Plan: * CXR appearance per ER provider concerning for COVID-19 infection * COVID-19 test was positive. * Continue isolation * Discussed with PA. Pardo (4) Hypokalemia: Code(s): E87.6 - Hypokalemia Status: Acute Assessment and Plan: * K okay (5) Anemia: Code(s): D64.9 - Anemia, unspecified Status: Acute Assessment and Plan: * related to ESRD * Epo ordered. * follow trend of H/H (6) Hypocalcemia: Code(s): E83.51 - Hypocalcemia Status: Acute Assessment and Plan: * etiology? * check PTH and vitamin D * corrected calcium is 7.5 (7) Diabetes: Code(s): E11.9 - Type 2 diabetes mellitus without complications Status: Chronic Assessment and Plan: * follow accucheks * on SSI Subjective Date/time seen: 04/05/20 08:33 Interval history: Patient is feeling better since admission. No chest pain or shortness of breath. No cough. Review of Systems Cardiovascular: Cardiovascular: Reports no additional cardiovascular complaints Respiratory: Respiratory: Reports no additional respiratory complaints Gastrointestinal: Gastrointestinal: Reports no additional gastrointestinal complaints Genitourinary: Genitourinary: Reports no additional female genitourinary complaints Exam Narrative: Exam Narrative: WDWN in NAD skin no rash head ncat ext no edema. Lungs clear. Heart regular rate and rhythm no rub Abdomen bowel sounds positive soft nontender Objective Data Vital Signs Vital Signs: Vital Signs - 24 hr 04/04/20 12:00 04/04/20 16:00 04/04/20 20:00 Temperature 36.5 C 36.7 C 36.6 C Pulse Rate 74 70 69 Respiratory Rate 18 18 20 Blood Pressure 130/84 126/81 116/74 Pulse Oximetry 96 97 99 04/04/20 21:18 04/05/20 00:00 04/05/20 01:35 Temperature 36.6 C 36.6 C Pulse Rate 75 68 68 Respiratory Rate 16 20 20 Blood Pressure 143/88 H 143/88 H Pulse Oximetry 96 98 04/05/20 04:00 Temperature 36.3 C L Pulse Rate 71 Respiratory Rate 20 Blood Pressure 149/87 H Pulse Oximetry 97 Intake/Output Intake/Output: Intake & Output 04/02/20 04/03/20 04/04/20 04/05/20 23:59 23:59 23:59 23:59 Intake Total 1190 2550 120 Output Total 1412 0 Balance 1190 1138 120 Meds/Results Medications: Active Medications Generic Name Dose Route Start Last Admin Trade Name Freq PRN Reason Stop Dose Admin Albuterol 2 puff
--- NOTE | 2020-04-05 08:33 | PM.PNNEP ---
Progress Note: A&P Assessment and Plan (1) End stage renal disease: Code(s): N18.6 - End stage renal disease Status: Chronic Assessment and Plan: On CCPD volume status looks good Continue the same dialysis (2) Pneumonia: Code(s): J18.9 - Pneumonia, unspecified organism Status: Acute Assessment and Plan: as noted by admission CXR follow-up on blood cultures on antibiotics On no oxygen. (3) Person under investigation for COVID-19: Code(s): Z20.828 - Contact with and (suspected) exposure to other viral communicable diseases Status: Acute Assessment and Plan: CXR appearance per ER provider concerning for COVID-19 infection COVID-19 test was positive. Continue isolation Discussed with PA. Pardo (4) Hypokalemia: Code(s): E87.6 - Hypokalemia Status: Acute Assessment and Plan: K hakeem (5) Anemia: Code(s): D64.9 - Anemia, unspecified Status: Acute Assessment and Plan: related to ESRD Epo ordered. follow trend of H/H (6) Hypocalcemia: Code(s): E83.51 - Hypocalcemia Status: Acute Assessment and Plan: etiology? check PTH and vitamin D corrected calcium is 7.5 (7) Diabetes: Code(s): E11.9 - Type 2 diabetes mellitus without complications Status: Chronic Assessment and Plan: follow accucheks on SSI Subjective Date/time seen: 04/05/20 08:33 Interval history: Patient is feeling better since admission. No chest pain or shortness of breath. No cough. Review of Systems Cardiovascular: Cardiovascular: Reports no additional cardiovascular complaints Respiratory: Respiratory: Reports no additional respiratory complaints Gastrointestinal: Gastrointestinal: Reports no additional gastrointestinal complaints Genitourinary: Genitourinary: Reports no additional female genitourinary complaints Exam Narrative: Exam Narrative: WDWN in NAD skin no rash head ncat ext no edema. Lungs clear. Heart regular rate and rhythm no rub Abdomen bowel sounds positive soft nontender Objective Data Vital Signs Vital Signs: Vital Signs - 24 hr 04/04/20 12:00 04/04/20 16:00 04/04/20 20:00 Temperature 36.5 C 36.7 C 36.6 C Pulse Rate 74 70 69 Respiratory Rate 18 18 20 Blood Pressure 130/84 126/81 116/74 Pulse Oximetry 96 97 99 04/04/20 21:18 04/05/20 00:00 04/05/20 01:35 Temperature 36.6 C 36.6 C Pulse Rate 75 68 68 Respiratory Rate 16 20 20 Blood Pressure 143/88 H 143/88 H Pulse Oximetry 96 98 04/05/20 04:00 Temperature 36.3 C L Pulse Rate 71 Respiratory Rate 20 Blood Pressure 149/87 H Pulse Oximetry 97 Intake/Output Intake/Output: Intake & Output 04/02/20 04/03/20 04/04/20 04/05/20 23:59 23:59 23:59 23:59 Intake Total 1190 2550 120 Output Total 1412 0 Balance 1190 1138 120 Meds/Results Medications: Active Medications Generic Name Dose Route Start Last Admin Trade Name Freq PRN Reason Stop Dose Admin Albuterol 2 puff 04/04/20 20:00 04/04/20 21:09 Albuterol Sulfate (*Sp) Aerosol 1 Puff INHALATION Not Given QIDRT [facility] Allopurinol 300 mg 04/04/20 09:00 04/05/20 07:58 Allopurinol 300 Mg Tablet PO 300 mg DAILY MARIELA Administration Dexamethasone 6 mg 04/04/20 16:05 04/04/20 18:33 Dexamethasone 2 Mg Tablet PO 6 mg DAILY@0800 [facility] Administration Dextrose 12.5 gm 04/03/20 13:33 Dextrose 50% 25 Gm/50 Ml Syringe IV PUSH PRN PRN Hypoglycemia Protocol Epoetin Darin-epbx 5,000 units 04/04/20 18:00 04/04/20 18:33 Epoetin Darin-Epbx 10,000 Units/Ml Vial SUB-Q 5,000 units [id number] [facility] Administration Glucagon 1 mg 04/03/20 13:33 Glucagon For Inj 1 Mg Vial IM PRN PRN Hypoglycemia Protocol Glucose 15 gm 04/03/20 13:33 Glucose Oral Gel 15 Gm Of Glucse In 37.5 Gm Tube PO PRN PRN Hypoglycemia Protocol Guaifenesin 600 mg
[2020-04-05] MEDS: ALBUTEROL SULFATE (*SP) AEROSOL 1 PUFF 2 PUFF INHALATION ×2 (08:40→12:25)
[2020-04-05 08:41] VITALS: O2SAT 93
[2020-04-05 12:00] VITALS: BP 142/84; PULSE 66; RESP 16; TEMP 36.4; O2SAT 99
[2020-04-05 12:26] LABS: Glucose Point of Care 311 (65-105)
[2020-04-05 12:26] LABS: Glucose Point of Care 325 (65-105)
--- NOTE | 2020-04-05 12:32 | PM.DS ---
DS: Admitting Diagnosis Admitting Diagnosis Admitting Diagnosis: Shortness of breath. DS: Discharge Diagnosis Discharge Diagnosis (1) Pneumonia due to COVID-19 virus: Code(s): U07.1 - COVID-19; J12.89 - Other viral pneumonia Status: Acute Assessment and Plan: CXR appearance per ER provider concerning for COVID-19 infection. COVID testing positive. Patient feels better today. Not requiring any O2. She was initially started on azithromycin and Rocephin but this was d/c after COVID testing positive. She was given one dose of dexamethasone, however she is not hypoxic and technically does not meet criteria for treatment. Continue supportive care at home with Tylenol as needed for fevers, mucinex as needed for cough. F/u with PCP Recommended using pulse oximeter at home to monitor O2 sats Continue quarantine at home (2) End stage renal disease: Code(s): N18.6 - End stage renal disease Status: Chronic Assessment and Plan: On CCPD volume status looks good Discussed with Dr. Garcia who is okay for discharge from his standpoint (3) Hypokalemia: Code(s): E87.6 - Hypokalemia Status: Acute Assessment and Plan: potassium improved to 4.2 today tolerating PD well, Nephrology following (4) Anemia: Code(s): D64.9 - Anemia, unspecified Status: Acute Assessment and Plan: H&H stable. [place] to be related to ESRD. No s/sx of blood loss Epo ordered. [employer] treating F/u with Nephrology and PCP as outpatient (5) Hypocalcemia: Code(s): E83.51 - Hypocalcemia Status: Acute Assessment and Plan: Unclear etiology. Ca 7.4 today. PTH 921.8, possibly related to ESRD F/u with Nephrology and PCP (6) Diabetes: Code(s): E11.9 - Type 2 diabetes mellitus without complications Status: Chronic Assessment and Plan: BGL 300s today, likely related to dexamethasone yesterday. A1c 7.3 this stay Continue basal insulin Accuchecks ACHS, hypoglycemia protocol, correctional insulin, Renal diet during stay F/u with PCP DS: Summary Hospital Course Reason for hospitalization: SOB, COVID 19 pneumonia Hospital Course: Patient is a 50-year-old female with end-stage renal disease on peritoneal dialysis, insulin-dependent diabetes, hypertension, anemia, and history of seizures who presented to the emergency department on 04/03 from home with complaints of shortness of breath. While in the ED, CXR imaging had findings suggestive of bilateral pneumonia and initially started on empiric azithromycin and Rocephin; she was also tested for COVID. Patient admitted under this setting. Please see H&P for further details. Patient was admitted to the hospitalist service for further evaluation. As above, patient tested in ED for COVID and was later found to be positive and antibiotics were subsequently discontinued. She was briefly placed on dexamethasone, however, this was also discontinued after one dose as patient not hypoxic and saturating 99% on RA prior to discharge. She underwent peritoneal dialysis during her stay and was followed by Nephrology who were consulted for management of her known ESRD. She was found to be hypokalemic, although this was replaced and within normal limits prior to discharge. As patient improved clinically, plan was for her to return home and to continue to quarantine. She was to follow up with her PCP and Dr. Garcia. She was instructed to continue supportive care at home. Patient agreeable and comfortable with plan for discharge. Patient hemodynamically stable and in improved condition for discharge on 04/05 Status at Discharge Overall status at discharge:
== END 2020-04-05 16:15 | disposition home or self-care (01) | DRG 177 ==
LOC: ANHED 08:32 → ANH3MEDSUR 08:55
PROVIDERS: Internal Medicine Nephrology; Nurse Practitioner; Physician Assistant; Admitting Provider Family Medicine; Emergency Provider General Practice; PCP Family Medicine; Visit Provider Family Medicine
DX: U07.1 COVID-19 (principal); N18.6 End stage renal disease; J12.89 Other viral pneumonia; I12.0 Hypertensive chronic kidney disease with stage 5 chronic kidney disease or end stage renal disease; E11.22 Type 2 diabetes mellitus with diabetic chronic kidney disease; D63.1 Anemia in chronic kidney disease; E83.51 Hypocalcemia; Z99.2 Dependence on renal dialysis; E87.6 Hypokalemia; E78.2 Mixed hyperlipidemia; G40.909 Epilepsy, unspecified, not intractable, without status epilepticus; M10.9 Gout, unspecified; Z79.4 Long term (current) use of insulin; Z79.899 Other long term (current) drug therapy
CPT/HCPCS: 36415; 36600; 71045; 80048; 80076; 81001; 82306; 82375; 82728; 82805; 83036; 83050; 83615; 83735; 83970; 84443; 84460; 85025; 85027; 85610; 85730; 86140; 87070; 87075; 87086; 87205; 87635; 88108; 89051; 90945; 93005; 94640; 96365; 96366; 96367; 96375; 96376; 99285; A9270; C9803; G0378; J0131; J0456; J0696; J1644; J1815; J2405; J8540; Q5106; U0003

== ENCOUNTER 2020-08-19 12:58 | Outpatient (CLI) | payer MEDICARE, MEDICAID, SELFPAY ==
[2020-08-19 13:39] LABS: Prothrombin Time 13.4 Seconds (11.1-14.7)
[2020-08-19 13:40] LABS: Partial Thromboplastin Time 30.5 SECONDS (22.3-36.8)
[2020-08-19 13:49] LABS: Anion Gap 10 mmol/L (8-16); Blood Urea Nitrogen 41 mg/dL (7-17); Carbon Dioxide 26 mmol/L (22-30); Chloride 100 mmol/L (98-107); Estimated Glomerular Filt Rate 4; Glucose 160 mg/dL (65-105); Sodium 136 mmol/L (137-145)
== END 2020-08-19 12:59 | disposition home or self-care (01) ==
LOC: ANHSURGERY 13:00
PROVIDERS: Anesthesiology; PCP Family Medicine; Visit Provider Obstetrics & Gynecology
DX: Z01.818 Encounter for other preprocedural examination (principal); N18.6 End stage renal disease; D25.9 Leiomyoma of uterus, unspecified; E11.9 Type 2 diabetes mellitus without complications; Z79.4 Long term (current) use of insulin; Z99.2 Dependence on renal dialysis
CPT/HCPCS: 36415; 80048; 85610; 85730; 86850; 86900; 86901

== ENCOUNTER → 2020-08-20 01:57 | Outpatient (CLI) | payer MEDICARE, MEDICAID, SELFPAY ==
[2020-08-20 19:34] LABS: SARS-CoV-2 RNA PCR Negative
== END ==
PROVIDERS: PCP Family Medicine; Visit Provider Obstetrics & Gynecology
DX: Z01.812 Encounter for preprocedural laboratory examination (principal); Z20.822 Contact with and (suspected) exposure to COVID-19
CPT/HCPCS: C9803; U0003; U0005

== ENCOUNTER 2020-08-24 15:36 | Inpatient (IN) | payer MEDICARE, MEDICAID, SELFPAY ==
[2020-08-09 14:46] VITALS: BMI 34.4
[2020-08-23] VITALS (15 sets, daily range): BP systolic 106–138; BP diastolic 55–85; PULSE 65–96; RESP 12–20; TEMP 35.8–36.3; O2SAT 100
[2020-08-23] MEDS: ACETAMINOPHEN 500 MG TABLET 1000 MG PO (11:27)
[2020-08-23] MEDS: SODIUM CHLORIDE 0.9% IV 1,000 ML 30 ML IV CONT (11:30)
[2020-08-23 11:31] LABS: Glucose Point of Care 173 (65-105)
[2020-08-23 11:56] LABS: Anion Gap 6 mmol/L (8-16); Blood Urea Nitrogen 35 mg/dL (7-17); Calcium 8.1 mg/dL (8.4-10.2); Carbon Dioxide 29 mmol/L (22-30); Chloride 100 mmol/L (98-107); Estimated CRCL calculation 7 ml/min; Estimated Glomerular Filt Rate 5; Glucose 174 mg/dL (65-105); Potassium 3.8 mmol/L (3.4-5.0); Sodium 135 mmol/L (137-145)
--- NOTE | 2020-08-23 11:58 | WPDANESEPPF ---
Anes - Initial Pre Proc Eval Procedure: Operation Date: 08/23/20 13:00 Proposed Procedures p Total Laparoscopic Hysterectomy with Bilateral Salpingo Oophorectomy - Jazmine Larsno MD Date/Time: 08/23/20 11:58 Surgeon: Jazmine Larson MD Pre Op Diagnosis: uterine leiomyoma Patient Data Age: 50 Gender: F Height: 5 ft 7 in Weight: 103.1 kg Last Vital Signs Temp 97.4 F L 08/23/20 11:00 Pulse 91 08/23/20 11:00 Resp 18 08/23/20 11:00 BP 119/85 08/23/20 11:00 Pulse Ox 100 08/23/20 11:00 Allergies Allergy/AdvReac Type Severity Reaction Status Date / Time clonidine AdvReac Severe blacking Verified 08/23/20 11:38 out lisinopril AdvReac Severe kidney Verified 08/23/20 11:38 function hydralazine AdvReac Headache Verified 08/23/20 11:38 Home Medications Medication Instructions Recorded Confirmed Type allopurinol 300 mg PO DAILY 11/03/19 08/23/20 History irbesartan 300 mg PO DAILY 11/03/19 08/23/20 History pen needle, diabetic 31 gauge x #90 each 12/07/19 04/03/20 Rx 10/02 Lantus Solostar U-100 Insulin 10 unit SUBCUT HS 08/09/20 08/23/20 History calcitriol 0.25 mcg PO DAILY 08/09/20 08/23/20 History ergocalciferol (vitamin D2) 1,250 mcg PO DAILY 08/09/20 08/23/20 History levetiracetam [Keppra] 500 mg PO BID 08/09/20 08/23/20 History nifedipine 30 mg PO BID 08/09/20 08/23/20 History rifampin 600 mg PO DAILY 08/09/20 08/23/20 History sucroferric oxyhydroxide [Velphoro] 500 mg PO TID 08/09/20 08/23/20 History Laboratory Tests 08/23/20 08/23/20 11:17 11:27 Sodium 135 mmol/L L mmol/L (137-145) Potassium 3.8 mmol/L mmol/L (3.4-5.0) Chloride 100 mmol/L mmol/L (98-107) Carbon Dioxide 29 mmol/L mmol/L (22-30) Anion Gap 6 mmol/L L mmol/L (8-16) BUN 35 mg/dL H mg/dL (7-17) Creatinine 10.60 mg/dL H mg/dL (0.7-1.0) Estim Creat Clear Calc 7 ml/min ml/min Estimated GFR 5 L (59 - ) Glucose 174 mg/dL H mg/dL (65-105) POC Capillary Glucose 173 mg/dl H mg/dl (65-105) Calcium 8.1 mg/dL L mg/dL (8.4-10.2) Patient hx anesthesia problems: none Family hx anesthesia problems: none [facility], [facility] Past Medical History Medical History End-stage renal disease on peritoneal dialysis Erythropoietin deficiency anemia Gout Hypertension Insulin dependent type 2 diabetes mellitus Hemoglobin A1c was 6.8% in July 2019. Mixed hyperlipidemia Seizure disorder (~10/2019) Surgical History Surgical History History of laparoscopic adjustable gastric banding (~2013) History of tubal ligation (~1993) Family History Family History Father Diabetes mellitus Social History Social History (Updated 04/04/20 @ 00:01 by Hermelinda Pedersen PA-C) Social History: Ms. Trujillo lives at home with her mother in [place]. 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 She denies alcohol, tobacco, or other drug abuse. She designates her mother, Jennifer, as her surrogate decision maker and she wishes to be a full code. Smoking status: Never smoker Second hand tobacco smoke exposure: No Alcohol intake: never Substance use: never Substance use type: does not use Living arrangements: with family Spiritual care concerns: No Agree to blood products: Yes Anes - Eval Final PreProcedure Day of Procedure 08/23/20 11:58 Patient weight: obese Heart: regular rate and rhythm Lungs: clear to auscultation Airway: Mallampati scale class III Neurological: alert and oriented Last oral intake: >/= 8 hours ASA classification: IV Emergent: no Anesthetic plan: proceed Anesthesia type and monitoring: general ETT and standard monitoring Informed Consent: The patient's anesthetic plan and its attendant risk
--- NOTE | 2020-08-23 12:03 | WPDHPUPDATE1 ---
History and Physical Update Update Date/Time: 08/23/20 12:03 History and Physical has been reviewed, including an updated exam of the patient. There are NO changes in the patient's condition. Risks, benefits, and alternatives have been discussed and questions answered. Patient agrees to proceed with procedure.
[2020-08-23] MEDS: ceFAZolin 2 GM/D5W 50 ML 2 GM/50 ML BAG IVPB (13:15)
--- NOTE | 2020-08-23 16:07 | P.OP_ITS ---
Procedure Note - Detailed Date of procedure: 08/23/20 Pre-op diagnosis: uterine leiomyoma Severe menorrhagia Post-op diagnosis: same Procedure performed: Total laparoscopic hysterectomy bilateral salpingo- oophorectomy Description of procedure: The patient was taken to the operating room. She was prepped and draped in the dorsal lithotomy position. A speculum was placed in the vagina. The cervix was grasped with a tenaculum. Stay sutures were placed at 3 and 9:00 a.m. of 0 Vicryl. The stay sutures were brought through the Clayton up. The DEENA manipulator was placed in the vagina with a fixed Clayton cup. The cup was then pushed up around the cervix. The sutures were tied to the handle of the DEENA manipulator. A 5 mm incision was made on the abdominal skin of the left upper quadrant using a scalpel. A 5 mm trocar was inserted into the intra-abdominal cavity under direct visualization the scope. Pneumoperitoneum was achieved. An 11 mm incision was made in the left lower quadrant of the abdomen with a scalpel. A 11 mm trocar was inserted into the intra-abdominal cavity under direct visualization the scope. A 5 mm periumbilical incision was made. A 5 mm scope was placed into the intra-abdominal cavity under direct visualization of the scope. The ureters were identified. The ureters were observed to be away from the infundibulopelvic ligaments. These infundibulopelvic ligaments were isolated, cauterized, and transected with LigaSure cautery. This was done in a bilateral fashion. The para ovarian tissue along the pelvic sidewall was cauterized and transected in a bilateral fashion using the ligature cautery. The round ligaments were cauterized and transected bilaterally with LigaSure cautery. The broad ligaments were cauterized and transected along the lateral aspects of the uterus down the level of the uterine arteries. A bladder flap was created using sharp and blunt dissection. The ureters were dissected out bilaterally down to the level of the uterine arteries. The could be visualized from the pelvic brim down the uterine arteries. Staying very close to the cervix the parametrium was cauterized transected in a stepwise fashion down to the level of the Clayton cup. The Bladder flap was moved distally over the Clayton cup using sharp and blunt dissection. Three large fibroids were removed from the uterus using uipolar cautery. The cup was visualized and a complete 360 degree papillary around the cervix. An incision was made with unipolar cautery down under the Clayton cup creating a colpotomy incision all the way around the cervix. The uterus tubes and ovaries were taken out through the vagina. The loose fibroids were removed through the vagina as well. A pneumo occluder was placed in the vagina. The vagina was closed with 0 V lock suture in a running fashion. The ureters were identified again and found to be intact elevated and the uterine arteries. The pelvis was irrigated with a copious amount of antibiotic irrigation. The pneumoperitoneum was reduced. The trocars were removed. The skin was closed subcuticular 4 Monocryl covered with Dermabond. The pneumo occluder was removed from the vagina. The vagina was irrigated with Betadine. The patient tolerated the procedure well. She was taken to the recovery room in stable condition. Sponge lap and needle counts were correct x2. Anesthesia: GETA Surgeon: Jazmine Larson MD Estimated blood loss (mL): 200 Drains: No Packing: No Pathology: yes Complications: No immediate complications Condition: stable Disposition: PACU Findings: Grossly normal-appearing vulva, vagina, cervix, tubes and ovaries. 15 cm uterus
--- NOTE | 2020-08-23 16:11 | SUR.PHASEI ---
1611- PD catheter noted to patient's left lower abdomen with dressing clean, dry and intact.
[2020-08-23] MEDS: fentaNYL CITRATE INJ (*CRX) 100 MCG/2 ML VIAL 25 MCG IV PUSH ×8 (16:33→17:11)
--- NOTE | 2020-08-23 16:37 | SUR.PHASEI ---
1638- Call to JOVI Hernandez to make aware patient's BG [id number]. No orders at this time.
--- NOTE | 2020-08-23 17:20 | SUR.PHASEI ---
1720- PD catheter noted to patient's left lower abdomen with dressing clean, dry and intact.
--- NOTE | 2020-08-23 17:32 | PC.NURSE ---
This patient, Heaven Trujillo, was admitted to Medical Room 348-01. Patient/family oriented to hospital policies and general routines including ID bracelet, bed and alarms, visiting hours, pain management, procedures, bathroom and other care routines, personal items, smoking policy, room service/diet, and visiting hours. Information on how to activate the Rapid Response Team has been discussed. Patient/Family are encouraged to report perceived risks to care and to ask questions if they do not understand what they are told or what they should do.
[2020-08-23] MEDS: ONDANSETRON INJ 4 MG/2 ML VIAL IV PUSH (18:04)
[2020-08-23] MEDS: levETIRAcetam 500 MG TABLET PO (18:25)
[2020-08-23] MEDS: NIFEdipine 30 MG TAB.ER.24 PO (18:25)
[2020-08-23] MEDS: HYDROcodone/acetaminophen (*CRX) 10-325 MG TABLET 1 TAB PO ×2 (19:16→23:30)
[2020-08-23 20:59] LABS: Glucose Point of Care 252 (65-105)
[2020-08-23] MEDS: fentaNYL CITRATE INJ (*CRX) 100 MCG/2 ML VIAL 50 MCG IV PUSH (21:06)
[2020-08-23] MEDS: INSULIN GLARGINE (*BKC) 100 UNITS/ML 10 UNITS SUB-Q (21:07)
--- NOTE | ~2020-08-24 | XR_ITS ---
EXAMINATION: XR fl guide central line place EXAM DATE: 08/25/2020 14:23 INDICATION: Tunneled catheter placement. TECHNIQUE: Fluoroscopy used during XR fl guide central line place performed by Dr. Martin Brown MD. Radiologist was not present for the imaging or procedure. Total fluoroscopic time of 4.5 minute s. A total of 1 image obtained for the exam. The DAP for this procedure was 1.56 mGym2. FINDINGS: Image demonstrates right-sided approach large caliber catheter tube projecting over the ca voatrial junction. Correlate with procedure note. IMPRESSION: Fluoroscopy used during tunneled catheter placement. Reviewed, dictated and finalized at location A.
--- NOTE | ~2020-08-24 | XR_ITS ---
EXAMINATION: XR chest port-a-cath/central EXAM DATE: 08/25/2020 14:49 INDICATION: Tunneled catheter placement. TECHNIQUE: Portable AP frontal chest x-ray was obtained. Comparison is made to prior examination from 06/03/2019. FINDINGS: There is a large caliber right-sided tunneled catheter, tip projecting over the cavoatrial junction. No confluent consolidation, pneumothorax or pleural effusion suspected. Cardiomediastinal s ilhouette is normal. There are no osseous abnormalities identified. IMPRESSION: No evidence postprocedure pneumothorax. Reviewed, dictated and finalized at location A.
[2020-08-24 00:40] VITALS: BP 128/73; PULSE 98; RESP 16; TEMP 36.7; O2SAT 100
[2020-08-24] MEDS: fentaNYL CITRATE INJ (*CRX) 100 MCG/2 ML VIAL 50 MCG IV PUSH ×3 (03:13→11:52)
[2020-08-24 03:40] VITALS: BP 109/65; PULSE 96; RESP 16; TEMP 36.6; O2SAT 100
[2020-08-24 06:52] VITALS: BP 116/69; PULSE 96; RESP 16; TEMP 36.9; O2SAT 99
--- NOTE | 2020-08-24 07:58 | WPDANESPN ---
Anes - Prog Note Post-Op Date/Time: 08/24/20 07:58 Cardiovascular status: normal Respiratory status: normal Airway patency: baseline Mental status: baseline Post-Op hydration status: normal Vital Signs: Last Vital Signs Temp 36.9 C 08/24/20 06:52 Pulse 96 08/24/20 06:52 Resp 16 08/24/20 06:52 BP 116/69 08/24/20 06:52 Pulse Ox 99 08/24/20 06:52 Pain Score (VAS): 0 I/O: Intake & Output 08/23/20 08/23/20 08/24/20 15:59 23:59 07:59 Intake Total 50 100 350 Output Total 300 Balance 50 100 50 Laboratory Tests 08/23/20 11:17 08/23/20 08/23/20 08/23/20 11:17 11:27 20:57 Sodium 135 L Potassium 3.8 Chloride 100 Carbon Dioxide 29 Anion Gap 6 L BUN 35 H Creatinine 10.60 H Estim Creat Clear Calc 7 Estimated GFR 5 L Glucose 174 H POC Capillary Glucose 173 H 252 H Calcium 8.1 L Post-procedural complaints: none Patient Feedback: Patient satisfied with anesthetic care.
[2020-08-24] MEDS: allopurinoL 150 MG TABLET PO (08:04)
[2020-08-24] MEDS: NIFEdipine 30 MG TAB.ER.24 PO ×2 (08:05→20:35)
[2020-08-24] MEDS: IRBESARTAN 150 MG TABLET 300 MG PO (08:05)
[2020-08-24] MEDS: levETIRAcetam 500 MG TABLET PO ×2 (08:05→20:35)
[2020-08-24] MEDS: calcitrioL 0.25 MCG CAPSULE PO (08:05)
[2020-08-24] MEDS: rifAMPin 300 MG CAPSULE 600 MG PO (08:06)
[2020-08-24 08:53] LABS: Glucose Point of Care 138 (65-105)
[2020-08-24] MEDS: ONDANSETRON INJ 4 MG/2 ML VIAL IV PUSH (08:59)
--- NOTE | 2020-08-24 10:45 | PM.IMCN ---
Assessment and Plan Assessment and plan (1) S/P total hysterectomy: Code(s): Z90.710 - Acquired absence of both cervix and uterus Status: Acute Assessment and Plan: Patient is POD#1 s/p laparoscopic total hysterectomy with bilateral salpingo-oophorectomy by Dr. Larson 08/23/20. Having some postoperative nausea last night and this morning; continue antiemetics. Management including pain control and DVT prophylaxis per the primary service. (2) ESRD (end stage renal disease) on dialysis: Code(s): N18.6 - End stage renal disease; Z99.2 - Dependence on renal dialysis Status: Chronic Assessment and Plan: On peritoneal dialysis since November [address] Garcia in addition to transplant team at [facility], on renal transplant list. Continue PD with the help of Dr. Garcia, appreciate his input. (3) Hypertension: Qualifiers: Hypertension type: unspecified Qualified Code(s): I10 - Essential (primary) hypertension Code(s): I10 - Essential (primary) hypertension Status: Chronic Assessment and Plan: Blood pressures are stable this morning, last 116/ maintained on her home irbesartan, nifedipine. Monitor BP and adjust treatment as needed. (4) Insulin dependent type 2 diabetes mellitus: Code(s): E11.9 - Type 2 diabetes mellitus without complications; Z79.4 - [facility] (current) use of insulin Status: Chronic Assessment and Plan: Maintained on her home Lantus. Continue to monitor with accu-cheks and adjust treatment as needed, cover with SSI. Diabetic diet once she is advanced from clear liquids per Dr. Larson. Additional Plan Thank you for allowing me to participate in this pleasant patient's care. Please call for any questions or concerns regarding her blood sugars or blood pressures. HPI Data of Consult Consult date: 08/24/20 Requesting Physician: Jazmine Larson MD Primary Care Provider: Maria Teresa Ramirez MD Consult Narrative Narrative: Date of Service 08/24/20 at 0945 I am asked to see this patient in consultation at the request of Dr Larson for postoperative medical management. The supervising physician for this medical consultation is Dr Nohemy Lorenzo. Ms. Trujillo is a pleasant 50yo female with history of end-stage renal disease on peritoneal dialysis managed by Dr. Garcia, insulin-dependent type 2 diabetes mellitus, hypertension, chronic anemia, history of questionable seizure activity in the past maintained on home Keppra by Dr. Williamson, recovered from COVID infection March 2020, who was admitted to the hospital after elective laparoscopic total hysterectomy with bilateral salpingo oophorectomy by Dr. Larson 08/23/20. She has tolerated the procedure well aside from postoperative nausea and vomiting last night and this morning. She denies any chest pain or shortness of breath. She reports some mild abdominal discomfort which she attributes to her incision sites. She was feeling a bit improved after Zofran this morning, but after trying clear liquid tray from breakfast she had emesis x1. Last bowel movement prior to surgery. She is resting comfortably otherwise offers no complaints. I have consulted Dr. Garcia for help managing her peritoneal dialysis while hospitalized. Review of Systems Review of Systems: All systems reviewed & are unremarkable except as noted in HPI and below PMFSH Past Medical History Medical History (Updated 08/24/20 @ 12:05 by Micehlle Leone PA-C) End-stage renal disease on peritoneal dialysis On peritoneal dialysis since November 2019, managed by Dr. Garcia Erythropoietin deficiency anemia Gout Hypertension Insulin dependent type 2 diabetes mellitus Hemoglobin A1c was 7.3% in March 2020. Mixed hyperlipidemia Seizure disorder (~10/2019) Patient
[2020-08-24 12:16] LABS: Glucose Point of Care 228 (65-105)
[2020-08-24] MEDS: HYDROcodone/acetaminophen (*CRX) 10-325 MG TABLET 1 TAB PO ×4 (13:33→23:34)
[2020-08-24 14:30] VITALS: BP 127/75; PULSE 97; RESP 12; TEMP 36.8; O2SAT 96
--- NOTE | 2020-08-24 17:49 | PM.CNNEP ---
Assessment and Plan Assessment and plan (1) End stage renal disease: Code(s): N18.6 - End stage renal disease Status: Chronic Assessment and Plan: the patient has end-stage renal disease. She is due for dialysis. We cannot do peritoneal dialysis right now. I think we probably ought await 3 or 4 weeks before we do anything. So I am going to ask Dr. Brown is a group to place a tunneled dialysis catheter. Long discussion with Dr. Larson (2) S/P total hysterectomy: Code(s): Z90.710 - Acquired absence of both cervix and uterus Status: Acute Assessment and Plan: this was done yesterday. (3) Hypertension: Qualifiers: Hypertension type: unspecified Qualified Code(s): I10 - Essential (primary) hypertension Code(s): I10 - Essential (primary) hypertension Status: Chronic Assessment and Plan: Blood pressure is under good control. (4) Diabetes: Qualifiers: Diabetes mellitus type: type 2 Diabetes mellitus residential insulin use: with residential use Diabetes mellitus complication status: without complication Qualified Code(s): E11.9 - Type 2 diabetes mellitus without complications; Z79.4 - [employer] (current) use of insulin Code(s): E11.9 - Type 2 diabetes mellitus without complications Status: Chronic Assessment and Plan: On Accu-Cheks and sliding-scale insulin (5) Observed seizure-like activity: Code(s): R56.9 - Unspecified convulsions Status: Acute Assessment and Plan: no recent seizure activity. She is on Keppra for this (6) Erythropoietin deficiency anemia: Code(s): D63.1 - Anemia in chronic kidney disease Status: Chronic Assessment and Plan: will give EPO with dialysis History of Present Illness Reason for Consult Consult date: 08/24/20 Chief Complaint Chief complaint: uterine leiomyoma History of Present Illness Narrative: Heaven is a very pleasant 50-year-old lady who has multiple medical problems including end stage kidney disease, hypertension, diabetes, gout, hyperlipidemia, seizure disorder, renal osteodystrophy, anemia. The patient came in the hospital because of a need for vaginal hysterectomy. This was done yesterday. The uterus was very large according to Dr. Lasron . after discussion with Dr. Larson, There might be some leakage of the peritoneal lining in the inferior aspect of the peritoneal cavity the patient feels okay. she is not having any chest pain or shortness of breath. Her belly is uncomfortable were there surgery was done. This morning she was unable to eat anything. Review of Systems Constitutional: Constitutional: Reports no additional constitutional complaints Eyes: Eyes: Reports no additional eye complaints ENT: Reports system reviewed and no additional complaints, except as documented Cardiovascular: Cardiovascular: Reports no additional cardiovascular complaints Respiratory: Respiratory: Reports no additional respiratory complaints Gastrointestinal: Gastrointestinal: Reports no additional gastrointestinal complaints Genitourinary: Genitourinary: Reports no additional female genitourinary complaints Musculoskeletal: Musculoskeletal: Reports no additional musculoskeletal complaints Integumentary/Breasts: Skin/Breast: Reports system reviewed and no additional complaints, except as docu Neurologic: Reports system reviewed and no additional complaints, except as documented Psychiatric: Psychiatric: Reports no additional psychiatric complaints Endocrine: Endocrine: Reports no additional endocrine complaints [facility] Past Medical History Medical History End-stage renal disease on peritoneal dialysis On peritoneal dialysis since November 2019, managed by Dr. Garcia Erythropoietin deficiency anemia Gout Hypertension Insulin dependent type 2 diabetes mellitus Hemoglobin A1c was 7.3% in No
[2020-08-24 20:04] VITALS: BP 116/61; PULSE 100; RESP 14; TEMP 36.4; O2SAT 100
[2020-08-24 20:31] LABS: Glucose Point of Care 100 (65-105)
[2020-08-24] MEDS: INSULIN GLARGINE (*BKC) 100 UNITS/ML 10 UNITS SUB-Q (20:35)
[2020-08-25] VITALS (19 sets, daily range): BP systolic 96–149; BP diastolic 59–91; PULSE 70–96; RESP 12–22; TEMP 35.6–36.7; O2SAT 93–100
[2020-08-25] MEDS: HYDROcodone/acetaminophen (*CRX) 10-325 MG TABLET 1 TAB PO ×5 (02:50→22:19)
[2020-08-25 06:25] LABS: Basophils Absolute Auto 0.1 K/mm3 (0.0-0.1); Basophils Percent Auto 0.4 % (0.2-1.2); Eosinophils Absolute Auto 0.2 K/mm3 (0-0.3); Eosinophils Percent Auto 1.8 % (0-4.4); Hematocrit 26.2 % (37.0-47.0); Hemoglobin 8.6 g/dL (12.0-15.0); Immature Granulocyte Absolute 0.07 K/mm3 (0.00-0.031); Immature Granulocyte Percent A 0.6 % (0-0.5); Lymphocytes Absolute Auto 0.97 K/mm3 (0.9-3.2); Lymphocytes Percent Auto 8.6 % (18.3-44.2); Mean Corpuscular HGB Conc 32.8 g/dl (32-36); Mean Corpuscular Hemoglobin 28.6 pg (26-34); Mean Platelet Volume 10.1 fl (7.4-10.4); Monocytes Absolute Auto 0.9 K/mm3 (0.1-0.6); Monocytes Percent Auto 8.2 % (2.6-8.5); Neutrophils Absolute Auto 9.1 K/mm3 (1.3-6.7); Neutrophils Percent Auto 80.4 % (45.5-73.1); Platelet Count Result 207 k/mm3 (150-375); Red Blood Count 3.01 M/mm3 (4.2-5.4); Red Cell Distribution Width 13.6 % (11.5-14.5); White Blood Count 11.3 K/mm3 (4.5-10.0)
[2020-08-25 06:34] LABS: Albumin Level 2.9 g/dL (3.5-5.1); Anion Gap 8 mmol/L (8-16); Blood Urea Nitrogen 49 mg/dL (7-17); Calcium 7.9 mg/dL (8.4-10.2); Carbon Dioxide 25 mmol/L (22-30); Chloride 99 mmol/L (98-107); Estimated CRCL calculation 7 ml/min; Estimated Glomerular Filt Rate 4; Glucose 81 mg/dL (65-105); Magnesium 2.6 mg/dL (1.6-2.3); Phosphorus 5.7 mg/dL (2.5-4.5); Potassium 4.3 mmol/L (3.4-5.0); Sodium 132 mmol/L (137-145)
--- NOTE | 2020-08-25 07:57 | PC.NURSE ---
Per Caity RN in pre op pt can have morning meds with a sip of water. Hold Lovenox.
--- NOTE | 2020-08-25 08:28 | PM.GYNPNOP ---
FOOT DOCTOR - A/P Assessment and plan (1) Encounter for postoperative care: Code(s): Z48.89 - Encounter for other specified surgical aftercare Status: Acute Assessment and Plan: From a surgical perspective patient is doing well. She is postop day 2. She is unable to have her peritoneal dialysis. She can have a dialysis catheter placed today. She will undergo hemodialysis and likely be discharged later today. Postoperative Procedures: Procedures Operation Date: 08/23/20 13:00 Actual Procedures Side Surgeon p Total Laparoscopic Hysterectomy with Bilateral Salpingo Oophorectomy Jazmine Larson MD Operation Date: 08/25/20 13:00 <No data on this case meets the specified criteria> Time Spent With Patient Time: Total time spent is greater than 50% in coordination of care (as documented) at patient's floor/unit and/or counseling patient: Time with patient: less than 15 minutes FOOT DOCTOR- PN:Subj Post-Op Subjective Date/time seen: 08/25/20 08:28 denies nausea, vomiting, fever, chills. She does still have some abdominal pain associated with the surgery. Surgical sites are tender. Exam Const: General: healthy appearing, comfortable and no acute distress Resp: Auscultation: clear to auscultation bilaterally, no rales, no rhonchi and no wheezes Cardio: Rate: regular rate Heart sounds: no click, no murmurs and no rubs GI: Inspection: non-distended Auscultation: normal bowel sounds Extrem: General: normal to inspection, no pedal edema and no calf tenderness FOOT DOCTOR - PN: Obj Data Vital Signs Vital Signs: Vital Signs - 24 hr 08/24/20 14:30 08/24/20 20:04 08/25/20 06:00 Temperature 98.3 F 97.5 F L 97 F L Pulse Rate 97 100 96 Respiratory Rate 12 14 16 Blood Pressure 127/75 116/61 116/59 L Pulse Oximetry 96 100 98 Intake/Output Intake/Output: Intake & Output 08/22/20 08/23/20 08/24/20 08/25/20 23:59 23:59 23:59 23:59 Intake Total 150 1440 Output Total 300 400 Balance 150 1140 -400 Meds/Results Medications: Active Medications Generic Name Dose Route Start Last Admin Trade Name Freq PRN Reason Stop Dose Admin Hydrocodone Bitart/Acetaminophen 1 tab 08/23/20 17:22 Hydrocodone/Acetaminophen (*Crx) 5-325 Mg Tablet PO Q3H PRN Pain Rated 5 or Less Hydrocodone Bitart/Acetaminophen 1 tab 08/23/20 17:22 08/25/20 06:05 Hydrocodone/Acetaminophen (*Crx) 10-325 Mg Tablet PO 1 tab Q3H PRN Administration Pain Rated 6 or Greater Allopurinol 150 mg 08/24/20 09:00 08/24/20 08:04 Allopurinol 150 Mg Tablet PO 150 mg DAILY AMRIELA Administration Calcitriol 0.25 mcg 08/24/20 09:00 08/24/20 08:05 Calcitriol 0.25 Mcg Capsule PO 0.25 mcg DAILY MARIELA Administration Enoxaparin Sodium 30 mg 08/25/20 09:00 08/25/20 07:57 Enoxaparin 30 Mg/0.3 Ml Syringe SUB-Q Not Given DAILY MARIELA Epoetin Darin-epbx 10,000 units 08/25/20 18:00 Epoetin Darin-Epbx 10,000 Units/Ml Vial IV PUSH [email or web address] [facility] Ergocalciferol 50,000 unit 08/28/20 09:00 Ergocalciferol 50,000 Unit Capsule PO [email or web address] [facility] Fentanyl Citrate 50 mcg 08/23/20 19:13 08/24/20 11:52 Fentanyl Citrate Inj (*Crx) 100 Mcg/2 Ml Vial IV PUSH 50 mcg Q2HR PRN Administration Pain Albumin Human 50 mls @ 999 mls/hr 08/24/20 18:00 Albutein IVPB 08/25/20 18:01 Q10M PRN HYPOTENSION Insulin Glargine 10 units 08/23/20 21:00 08/24/20 20:35 Insulin Glargine (*Bkc) 100 Units/Ml SUB-Q 10 units HS MARIELA Administration Irbesartan 300 mg 08/24/20 09:00 08/24/20 08:05 Irbesartan 150 Mg Tablet PO 300 mg DAILY MARIELA Administration Levetiracetam 500 mg 08/23/20 17:22 08/24/20 20:35 Levetiracetam 500 Mg Tablet PO 500 mg Q12HR MARIELA Administration Naloxone HCl 0.1 mg 08/23/20 17:22 Naloxone Hcl 0.4 Mg/Ml Vial IV PUSH Q2M PRN Respiratory rate less than 10 Nifedipine 30 mg 08/23/20 17:22 08/24/20 20:35 Nifedipine 30 Mg Tab.Er.24
[2020-08-25] MEDS: allopurinoL 150 MG TABLET PO (09:44)
[2020-08-25] MEDS: calcitrioL 0.25 MCG CAPSULE PO (09:44)
[2020-08-25] MEDS: levETIRAcetam 500 MG TABLET PO ×2 (09:44→20:39)
[2020-08-25] MEDS: rifAMPin 300 MG CAPSULE 600 MG PO (09:44)
[2020-08-25] MEDS: IRBESARTAN 150 MG TABLET 300 MG PO (09:44)
[2020-08-25] MEDS: NIFEdipine 30 MG TAB.ER.24 PO ×2 (09:45→20:39)
[2020-08-25] MEDS: HYDROcodone/acetaminophen (*CRX) 5-325 MG TABLET 1 TAB PO (09:49)
[2020-08-25 10:13] LABS: Glucose Point of Care 69 (65-105)
--- NOTE | 2020-08-25 10:29 | P.HPUP_ITS ---
History and Physical Update Update Date/Time: 08/25/20 10:29 History and Physical has been reviewed, including an updated exam of the patient. There are NO changes in the patient's condition. Patient unable to proceed with peritoneal dialysis due to recent laparoscopic hysterectomy. Req uested by Nephrology to placed tunneled central venous catheter for dialysis for the next several weeks until able to resume peritoneal dialysis. Will go ahead and placed tunneled Dura Flow catheter under fluoroscopy and sedation this morning. Risks, benefits, and alternatives have been discussed and questions answered. Patient agrees to proceed with procedure.
[2020-08-25] MEDS: DEXTROSE 50% 25 GM/50 ML SYRINGE IV PUSH (10:31)
[2020-08-25] MEDS: CHLORHEXIDINE GLUCONATE 4% SOL 120 ML BTL 1 APPLIC TOPICAL (10:32)
--- NOTE | 2020-08-25 11:04 | PM.PNNEP ---
Progress Note: A&P Assessment and Plan (1) End stage renal disease: Code(s): N18.6 - End stage renal disease Status: Chronic Assessment and Plan: the patient has end-stage renal disease. due for dialysis. She is getting a tunneled catheter today. Orders are written (2) S/P total hysterectomy: Code(s): Z90.710 - Acquired absence of both cervix and uterus Status: Acute Assessment and Plan: postop day 2 (3) Hypertension: Qualifiers: Hypertension type: unspecified Qualified Code(s): I10 - Essential (primary) hypertension Code(s): I10 - Essential (primary) hypertension Status: Chronic Assessment and Plan: Blood pressure is under good control. (4) Diabetes: Qualifiers: Diabetes mellitus type: type 2 Diabetes mellitus custodial insulin use: with buttermaker helper use Diabetes mellitus complication status: without complication Qualified Code(s): E11.9 - Type 2 diabetes mellitus without complications; Z79.4 - skilled nursing (current) use of insulin Code(s): E11.9 - Type 2 diabetes mellitus without complications Status: Chronic Assessment and Plan: On Accu-Cheks and sliding-scale insulin (5) Observed seizure-like activity: Code(s): R56.9 - Unspecified convulsions Status: Acute Assessment and Plan: no recent seizure activity. She is on Keppra for this (6) Erythropoietin deficiency anemia: Code(s): D63.1 - Anemia in chronic kidney disease Status: Chronic Assessment and Plan: will give EPO with dialysis Subjective Date/time seen: 08/25/20 11:04 Interval history: Heaven is feeling better today. She got some pain pills and her belly pain is improved. She is on the books to get a tunneled dialysis catheter Review of Systems Cardiovascular: Cardiovascular: Reports no additional cardiovascular complaints Respiratory: Respiratory: Reports no additional respiratory complaints Gastrointestinal: Gastrointestinal: Reports no additional gastrointestinal complaints Genitourinary: Genitourinary: Reports no additional female genitourinary complaints Exam Narrative: Exam Narrative: WDWN in NAD skin no rash head ncat lungs clear cor reg no rub abd BS+ less tender and soft ext no edema. Objective Data Vital Signs Vital Signs: Vital Signs - 24 hr 08/24/20 14:30 08/24/20 20:04 08/25/20 06:00 Temperature 36.8 C 36.4 C L 36.1 C L Pulse Rate 97 100 96 Respiratory Rate 12 14 16 Blood Pressure 127/75 116/61 116/59 L Pulse Oximetry 96 100 98 Intake/Output Intake/Output: Intake & Output 08/22/20 08/23/20 08/24/20 08/25/20 23:59 23:59 23:59 23:59 Intake Total 150 1440 Output Total 300 400 Balance 150 1140 -400 Meds/Results Medications: Active Medications Generic Name Dose Route Start Last Admin Trade Name Freq PRN Reason Stop Dose Admin Hydrocodone Bitart/Acetaminophen 1 tab 08/23/20 17:22 08/25/20 09:49 Hydrocodone/Acetaminophen (*Crx) 5-325 Mg Tablet PO 1 tab Q3H PRN Administration Pain Rated 5 or Less Hydrocodone Bitart/Acetaminophen 1 tab 08/23/20 17:22 08/25/20 06:05 Hydrocodone/Acetaminophen (*Crx) 10-325 Mg Tablet PO 1 tab Q3H PRN Administration Pain Rated 6 or Greater Allopurinol 150 mg 08/24/20 09:00 08/25/20 09:44 Allopurinol 150 Mg Tablet PO 150 mg DAILY MARIELA Administration Calcitriol 0.25 mcg 08/24/20 09:00 08/25/20 09:44 Calcitriol 0.25 Mcg Capsule PO 0.25 mcg DAILY MARIELA Administration Dextrose 12.5 gm 08/25/20 10:15 08/25/20 10:31 Dextrose 50% 25 Gm/50 Ml Syringe IV PUSH 12.5 gm PRN PRN Administration Hypoglycemia Protocol Enoxaparin Sodium 30 mg 08/25/20 09:00 08/25/20 07:57 Enoxaparin 30 Mg/0.3 Ml Syringe SUB-Q Not Given DAILY MARIELA Epoetin Darin-epbx 10,000 units 08/25/20 18:00 Epoetin Darin-Epbx 10,000 Units/Ml Vial IV PUSH [email or web address]@
[2020-08-25 11:16] LABS: Glucose Point of Care 117 (65-105)
--- NOTE | 2020-08-25 11:23 | PC.NURSE ---
Pt to Preop per bed.
[2020-08-25] MEDS: ONDANSETRON INJ 4 MG/2 ML VIAL IV PUSH (11:51)
[2020-08-25] MEDS: SODIUM CHLORIDE 0.9% IV 500 ML 30 ML IV CONT (11:56)
--- NOTE | 2020-08-25 12:32 | WPDANESEPPF ---
Anes - Initial Pre Proc Eval Procedure: Operation Date: 08/23/20 13:00 Proposed Procedures p Total Laparoscopic Hysterectomy with Bilateral Salpingo Oophorectomy - Jazmine Larson MD Operation Date: 08/25/20 13:00 Proposed Procedures p Placement Of Tunneled Duraflow Catheter - Martin Brown MD Date/Time: 08/25/20 12:32 Surgeon: Jazmine Larson MD Pre Op Diagnosis: uterine leiomyoma Patient Data Age: 50 Gender: F Height: 5 ft 7 in Weight: 105.2 kg Last Vital Signs Temp 36.1 C L 08/25/20 06:00 Pulse 96 08/25/20 06:00 Resp 16 08/25/20 06:00 BP 116/59 L 08/25/20 06:00 Pulse Ox 98 08/25/20 06:00 Allergies Allergy/AdvReac Type Severity Reaction Status Date / Time clonidine AdvReac Severe blacking Verified 08/25/20 12:02 out lisinopril AdvReac Severe kidney Verified 08/25/20 12:02 function hydralazine AdvReac Headache Verified 08/25/20 12:02 Home Medications Medication Instructions Recorded Confirmed Type allopurinol 150 mg PO DAILY 11/03/19 08/23/20 History irbesartan 300 mg PO DAILY 11/03/19 08/23/20 History pen needle, diabetic 31 gauge x #90 each 12/07/19 08/23/20 Rx /16 Lantus Solostar U-100 Insulin 10 unit SUBCUT HS 08/09/20 08/23/20 History calcitriol 0.25 mcg PO DAILY 08/09/20 08/23/20 History ergocalciferol (vitamin D2) 1,250 mcg PO WEEKLY 08/09/20 08/23/20 History levetiracetam [Keppra] 500 mg PO BID 08/09/20 08/23/20 History nifedipine 30 mg PO BID 08/09/20 08/23/20 History rifampin 600 mg PO DAILY 08/09/20 08/23/20 History sucroferric oxyhydroxide [Velphoro] 500 mg PO TID 08/09/20 08/23/20 History Laboratory Tests 08/24/20 08/25/20 08/25/20 20:24 05:29 05:29 WBC 11.3 K/mm3 H K/mm3 (4.5-10.0) RBC 3.01 M/mm3 L M/mm3 (4.2-5.4) Hgb 8.6 g/dL L g/dL (12.0-15.0) Hct 26.2 % L % (37.0-47.0) MCV 87.0 fl fl (80-100) MCH 28.6 pg pg (26-34) MCHC 32.8 g/dl g/dl (32-36) RDW 13.6 % % (11.5-14.5) Plt Count 207 k/mm3 k/mm3 (150-375) MPV 10.1 fl fl (7.4-10.4) Immature Gran % (Auto) 0.6 % H % (0-0.5) Neut % (Auto) 80.4 % H % (45.5-73.1) Lymph % (Auto) 8.6 % L % (18.3-44.2) Carver % (Auto) 8.2 % % (2.6-8.5) Eos % (Auto) 1.8 % % (0-4.4) Baso % (Auto) 0.4 % % (0.2-1.2) Lymph # (Auto) 0.97 K/mm3 K/mm3 (0.9-3.2) Carver # (Auto) 0.9 K/mm3 H K/mm3 (0.1-0.6) Eos # (Auto) 0.2 K/mm3 K/mm3 (0-0.3) Baso # (Auto) 0.1 K/mm3 K/mm3 (0.0-0.1) Abs Immat Gran (auto) 0.07 K/mm3 H K/mm3 (0.00-0.031) Absolute Neuts (auto) 9.1 K/mm3 H K/mm3 (1.3-6.7) Absolute Nucleated RBC 0.0 K/mm3 K/mm3 (0.0-0.012) Nucleated RBC % 0.0 % % (0.0-0.2) Sodium 132 mmol/L L mmol/L (137-145) Potassium 4.3 mmol/L mmol/L (3.4-5.0) Chloride 99 mmol/L mmol/L (98-107) Carbon Dioxide 25 mmol/L mmol/L (22-30) Anion Gap 8 mmol/L mmol/L (8-16) BUN 49 mg/dL H D mg/dL (7-17) Creatinine 11.40 mg/dL H mg/dL (0.7-1.0) Estim Creat Clear Calc 7 ml/min ml/min Estimated GFR 4 L (59 - ) Glucose 81 mg/dL mg/dL (65-105) POC Capillary Glucose 100 mg/dl mg/dl (65-105) Calcium 7.9 mg/dL L mg/dL (8.4-10.2) Phosphorus 5.7 mg/dL H mg/dL (2.5-4.5) Magnesium 2.6 mg/dL H mg/dL (1.6-2.3) Albumin 2.9 g/dL L g/dL (3.5-5.1) Hep Bs Antigen Hep Bs Antibody Hep B Core Total Ab Hepatitis C Ab Screen 08/25/20 08/25/20 08/25/20 10:12 10:49 10:49 WBC RBC Hgb Hct MCV MCH MCHC RDW Plt Count MPV Immature Gran % (Auto)
[2020-08-25 12:34] LABS: Hepatitis B Surface Antigen Negative (Negative)
[2020-08-25 12:55] LABS: Hepatitis B Surface Anti Res Indeterminate; Hepatitis C Virus Antibody Negative (Negative)
[2020-08-25] MEDS: ceFAZolin 2 GM/D5W 50 ML 2 GM/50 ML BAG IVPB (13:06)
[2020-08-25] MEDS: LIDO 1%/EPINEPHRINE 1:100,000 50 ML VIAL INFILTRATE (13:34)
[2020-08-25] MEDS: HEPARIN SODIUM, PORCINE 10,000 UNITS/10 ML VIAL 10000 UNITS XX (13:37)
[2020-08-25] MEDS: HEPARIN SODIUM 5,000 UNITS/ML VIAL 5000 UNITS XX (13:40)
--- NOTE | 2020-08-25 14:51 | P.OP_ITS ---
Procedure Note - Detailed Date of procedure: 08/25/20 Pre-op diagnosis: End-stage renal disease, inadequate venous access End-stage renal disease, inadequate venous access Post-op diagnosis: same Procedure performed: Attempted placement right internal jugular tunneled dura flow central venous catheter for dialysis under fluoroscopy, placement right subclavian PermCath tunneled central venous catheter under fluoroscopy Description of procedure: Patient was taken to the operating room and placed in a supine position. The head was turned slightly to the left and the right neck and right upper chest were prepped and draped. Local anesthetic was infiltrated over the right internal jugular vein. Several cannulations of the internal jugular vein were performed but the guidewire would not pass. The patient had a previous dialysis catheter in the right internal jugular vein and possibly there was some degree of stenosis. On further attempts I was only able to access the carotid artery. This was abandoned and we turned our attention to the right subclavian vein. Local was infiltrated here as well under the lateral aspect of the right clavicle. A single puncture was used to cannulate the right subclavia n vein and the guidewire passed readily into the superior vena cava. C-arm fluoroscopy confirmed the position of the guidewire. From there, I measured the area where the tip of the central venous catheter would need to lie. This was done with fluoroscopy as well. A 24 cm PermCath was chosen. Its path was laid out on the right upper chest and subclavian area. Local anesthetic was infiltrated under the counter incision and at the exit site of the guidewire. Both these sites were then opened at the skin level. The PermCath was tunneled from the exit site back to the subclavian vein site. I then passed serial dilators over the guidewire again using fluoroscopy assistance. I then passed the dilator and sleeve over the guidewire and into the superior vena cava. I removed the guidewire and the dilator and then passed the PermCath into the sleeve. Unfortunately, the sleeve had pulled up was now exiting the left subclavian area. I pulled back and eventually removed the sleeve but left the PermCath in position. I pulled the PermCath back to the subclavian vein and then passed a guidewire through the PermCath and into the superior vena cava. From there I was able to manipulate the PermCath down into the superior vena cava, it's desired location. With the tip of the PermCath at the junction of the SVC and right atrium, I flushed the PermCath with heparin. Both ports easily flushed and aspirated without much resistance at all. I then used the heparin final flush for each of the lumens. The counter incisions were then closed with subcuticular interrupted 4 0 Vicryl suture. The PermCath was sutured to the skin with 3 0 nylon. Sterile dressing was placed over the PermCath and its ports. The patient was awakened and taken to recovery in good condition. Postprocedure chest x-ray by my review looked satisfactory. Patient tolerated the procedure well. Anesthesia: MAC (Airway protection with LMA) and local (0.5% Marcaine with e pinephrine) Surgeon: Martin Brown MD Global Sourcing Manager: Roxanna RICKS Estimated blood loss (mL): 10 Drains: No Packing: No Pathology: none sent Complications: None Condition: stable Disposition: PACU Findings: Chest x-ray reviewed independently and the PermCath appears to be in good position with no pneumothorax.
[2020-08-25] MEDS: fentaNYL CITRATE INJ (*CRX) 100 MCG/2 ML VIAL 25 MCG IV PUSH ×8 (14:56→15:43)
--- NOTE | 2020-08-25 16:00 | PC.NURSE ---
Returned from OR per bed.
--- NOTE | 2020-08-25 16:14 | PM.IMPN ---
Progress Note: A&P Assessment and Plan (1) S/P total hysterectomy: Code(s): Z90.710 - Acquired absence of both cervix and uterus Status: Acute Assessment and Plan: Patient is POD#2 s/p laparoscopic total hysterectomy with bilateral salpingo-oophorectomy by Dr. Larson 08/23/20. Management including pain control and DVT prophylaxis per the primary service. (2) ESRD (end stage renal disease) on dialysis: Code(s): N18.6 - End stage renal disease; Z99.2 - Dependence on renal dialysis Status: Chronic Assessment and Plan: On peritoneal dialysis since November [address] Garcia in addition to transplant team at [facility], on renal transplant list. Appreciate Dr Garcia's input. Noted his plan that she should not have PD for the next 3 to 4 weeks thus general surgery was consulted and Dr Brown placed a tunneled dialysis catheter this afternoon. Further dialysis recommendations per Dr Garcia. (3) Hypertension: Qualifiers: Hypertension type: unspecified Qualified Code(s): I10 - Essential (primary) hypertension Code(s): I10 - Essential (primary) hypertension Status: Chronic Assessment and Plan: Blood pressures reviewed and are stable maintained on her home irbesartan, nifedipine. Monitor BP and adjust treatment as needed. (4) Insulin dependent type 2 diabetes mellitus: Code(s): E11.9 - Type 2 diabetes mellitus without complications; Z79.4 - intermediate project manager (current) use of insulin Status: Chronic Assessment and Plan: Maintained on her home Lantus. Continue to monitor with accu-cheks and adjust treatment as needed, cover with SSI. Recommend a diabetic diet once she is advanced from clear liquids per others. Additional Plan Thank you for allowing me to participate in this pleasant patient's care. Please call for any questions or concerns regarding her blood sugars or blood pressures. Subjective Date/time seen: 08/25/20 16:15 Interval history: Ms. Trujillo is a 50yo F with end-stage renal disease and diabetes POD#2 s/p lap total hysterectomy seen in follow up late this afternoon having just arrived back from PACU after getting tunneled dialysis catheter placed. She is sleepy after the procedure and moaning, telling me she has abdominal pain but does not offer up many details. Denies chest pain or shortness of breath. Offers no other complaints at this time. Review of Systems Review of Systems: All systems reviewed & are unremarkable except as noted in HPI and below Exam Narrative: Exam Narrative: General: Female resting supine in bed in no acute distress. Sleepy, moaning, holding her abdomen. HEENT: Normocephalic, atraumatic, EOMI, oral mucosa moist. Neck: Supple. Chest: Lungs clear to auscultation all [place]. Respirations even and nonlabored. Tolerating room air. Heart: Rate and rhythm regular. Abdomen: Soft, nontender, nondistended, incisions sites are clean, dry, intact, PD catheter site to left lower abdomen. Skin: Warm, dry, no rashes or lesions noted on limited exam. Extremities: No edema or pain to palpation. Peripheral pulses intact. Neurologic: Awake but sleepy probably from pain meds with surgery. Answers some questions. No focal neurological deficits noted in casual conversation. Speech is clear. Objective Data Vital Signs Vital Signs: Last Vital Signs Temp 96.5 F L 08/25/20 16:00 Pulse 83 08/25/20 16:00 Resp 18 08/25/20 16:00 BP 129/76 08/25/20 16:00 Pulse Ox 100 08/25/20 16:00 Intake/Output Intake/Output: Intake & Output 08/22/20 08/23/20 08/24/20 08/25/20 23:59 23:59 23:59 23:59 Intake Total 150 1440 150 Output Total 300 750 Balance 150 1140 -600 Meds/Results Medications: Active Medications Generic Name Dose Route Start Last Admin
[2020-08-25 16:16] LABS: Glucose Point of Care 98 (65-105)
[2020-08-25] MEDS: LACTATED RINGERS 1,000 ML 50 ML IV CONT (16:17)
--- NOTE | 2020-08-25 16:23 | PCDIET ---
Pt has been informed that she can bring her velphoro in from home, as it is a non formulary med.
[2020-08-25] MEDS: polyethylene glycoL 3350 17 GM POWD.PACK PO (18:02)
[2020-08-25] MEDS: INSULIN GLARGINE (*BKC) 100 UNITS/ML 10 UNITS SUB-Q (20:38)
[2020-08-25 23:02] LABS: Glucose Point of Care 92 (65-105)
[2020-08-26] VITALS (11 sets, daily range): BP systolic 128–149; BP diastolic 63–93; PULSE 69–86; RESP 12–18; TEMP 36.1–37.1; O2SAT 99–100
[2020-08-26] MEDS: HYDROcodone/acetaminophen (*CRX) 10-325 MG TABLET 1 TAB PO ×7 (01:57→21:26)
[2020-08-26 05:52] LABS: Basophils Percent Auto 0.5 % (0.2-1.2); Eosinophils Absolute Auto 0.4 K/mm3 (0-0.3); Eosinophils Percent Auto 4.1 % (0-4.4); Hematocrit 24.8 % (37.0-47.0); Hemoglobin 8.3 g/dL (12.0-15.0); Immature Granulocyte Absolute 0.04 K/mm3 (0.00-0.031); Immature Granulocyte Percent A 0.5 % (0-0.5); Lymphocytes Absolute Auto 0.84 K/mm3 (0.9-3.2); Lymphocytes Percent Auto 9.7 % (18.3-44.2); Mean Corpuscular HGB Conc 33.5 g/dl (32-36); Mean Corpuscular Volume 86.7 fl (80-100); Mean Platelet Volume 9.9 fl (7.4-10.4); Monocytes Absolute Auto 0.6 K/mm3 (0.1-0.6); Monocytes Percent Auto 6.8 % (2.6-8.5); Neutrophils Absolute Auto 6.8 K/mm3 (1.3-6.7); Neutrophils Percent Auto 78.4 % (45.5-73.1); Platelet Count Result 193 k/mm3 (150-375); Red Blood Count 2.86 M/mm3 (4.2-5.4); Red Cell Distribution Width 13.7 % (11.5-14.5); White Blood Count 8.7 K/mm3 (4.5-10.0)
[2020-08-26 06:14] LABS: Albumin Level 2.8 g/dL (3.5-5.1); Alkaline Phosphatase 73 U/L (38-126); Anion Gap 3 mmol/L (8-16); Aspartate Amino Transferase 14 U/L (14-36); Bilirubin,Total 0.3 mg/dL (0.2-1.3); Blood Urea Nitrogen 22 mg/dL (7-17); Calcium 7.7 mg/dL (8.4-10.2); Carbon Dioxide 33 mmol/L (22-30); Chloride 99 mmol/L (98-107); Estimated CRCL calculation 13 ml/min; Estimated Glomerular Filt Rate 9; Glucose 64 mg/dL (65-105); Magnesium 2.1 mg/dL (1.6-2.3); Potassium 3.6 mmol/L (3.4-5.0); Sodium 135 mmol/L (137-145)
[2020-08-26 06:20] LABS: Alanine Aminotransferase < 4 U/L (4-35)
--- NOTE | 2020-08-26 07:47 | PC.NURSE ---
Pt blood sugar 58 at this time. Pt eating breakfast and will check sugar again before using hypoglycemic protocol.
[2020-08-26 07:48] LABS: Glucose Point of Care 109 (65-105)
[2020-08-26 07:50] LABS: Glucose Point of Care 58 (65-105)
[2020-08-26] MEDS: ENOXAPARIN 30 MG/0.3 ML SYRINGE SUB-Q (08:29)
[2020-08-26] MEDS: calcitrioL 0.25 MCG CAPSULE PO (08:30)
[2020-08-26] MEDS: NIFEdipine 30 MG TAB.ER.24 PO ×2 (08:30→21:26)
[2020-08-26] MEDS: IRBESARTAN 150 MG TABLET 300 MG PO (08:30)
[2020-08-26] MEDS: levETIRAcetam 500 MG TABLET PO ×2 (08:30→21:26)
[2020-08-26] MEDS: DEXTROSE 50% 25 GM/50 ML SYRINGE IV PUSH (08:38)
[2020-08-26 09:04] LABS: Glucose Point of Care 105 (65-105)
[2020-08-26 09:04] LABS: Glucose Point of Care 62 (65-105)
--- NOTE | 2020-08-26 09:04 | PC.NURSE ---
Glucose checked and only went up to 62. D50 given and checked 15 minute later with result of 105. Will continue to monitor. Pt refused antibiotic this morning. Education given on importance of taking antibiotics post-op.
[2020-08-26] MEDS: allopurinoL 150 MG TABLET PO (09:24)
[2020-08-26 11:54] LABS: Glucose Point of Care 82 (65-105)
--- NOTE | 2020-08-26 12:27 | PM.GYNPNOP ---
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 A 500 g uterus. She is recovering slowly from the procedure. She has had some issues regarding her dialysis. She had to be changed from peritoneal dialysis to hemodialysis. A catheter was placed for her hemodialysis. The hospitalist services been in controlling her blood sugars and blood pressures. Nephrology, Dr. Garcia, has been taking care of her as well. We will hopefully discharge her tomorrow. She would like to stay another day. She is having some trouble getting around that she has got some pain control issues. 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 She denies any chest pain shortness of breath. Interval history: Ms. Trujillo is a 50yo F with end-stage renal disease and diabetes POD#2 s/p lap total hysterectomy seen in follow up late this afternoon having just arrived back from PACU after getting tunneled dialysis catheter placed. She is sleepy after the procedure and moaning, telling me she has abdominal pain but does not offer up many details. Denies chest pain or shortness of breath. Offers no other complaints at this time. 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 - PN: Obj Data Vital Signs Vital Signs: Vital Signs - 24 hr 08/25/20 14:37 08/25/20 14:50 08/25/20 15:05 Temperature 96.8 F L Pulse Rate 96 85 84 Respiratory Rate 18 22 H 22 H Blood Pressure 96/66 L 107/69 110/75 Pulse Oximetry 100 100 100 08/25/20 15:20 08/25/20 15:35 08/25/20 15:50 Temperature 97.7 F Pulse Rate 84 84 88 Respiratory Rate 22 H 20 18 Blood Pressure 121/77 110/77 114/82 Pulse Oximetry 100 93 95 08/25/20 16:00 08/25/20 16:15 08/25/20 16:45 Temperature 96.5 F L 96.1 F L 96.3 F L Pulse Rate 83 81 72 Respiratory Rate 18 18 18 Blood Pressure 129/76 125/86 132/83 Pulse Oximetry 100 100 100 08/25/20 17:45 08/25/20 20:35 08/25/20 22:35 Temperature 96.7 F L 97.9 F 98.1 F Pulse Rate 72 82 82 Respiratory Rate 18 12 18 Blood Pressure 119/62 129/62 146/89 H Pulse Oximetry 100 100 08/25/20 22:38 08/25/20 23:00 08/25/20 23:15 Temperature Pulse Rate 74 84 75 Respiratory Rate Blood Pressure 138/90 149/91 H 136/89 Pulse Oximetry 08/25/20 23:30 08/25/20 23:45 08/26/20 00:00 Temperature Pulse Rate 70 73 Respiratory Rate Blood Pressure 143/85 H 138/85 136/84 Pulse Oximetry 08/26/20 00:15 08/26/20 00:30 08/26/20 00:45 Temperature Pulse Rate 86 82 83 Respiratory Rate Blood Pressure 140/87 143/84 H 142/88 H Pulse Oximetry 08/26/20 01:00 08/26/20 01:20 08/26/20 01:39
--- NOTE | 2020-08-26 12:55 | PM.PNNEP ---
Progress Note: A&P Assessment and Plan (1) End stage renal disease: Code(s): N18.6 - End stage renal disease Status: Chronic Assessment and Plan: the patient has end-stage renal disease. She will get dialysis tomorrow. (2) S/P total hysterectomy: Code(s): Z90.710 - Acquired absence of both cervix and uterus Status: Acute Assessment and Plan: postop day 2 (3) Hypertension: Qualifiers: Hypertension type: unspecified Qualified Code(s): I10 - Essential (primary) hypertension Code(s): I10 - Essential (primary) hypertension Status: Chronic Assessment and Plan: Blood pressure is under good control. (4) Diabetes: Qualifiers: Diabetes mellitus type: type 2 Diabetes mellitus [facility] insulin use: with [facility] use Diabetes mellitus complication status: without complication Qualified Code(s): E11.9 - Type 2 diabetes mellitus without complications; Z79.4 - correction (current) use of insulin Code(s): E11.9 - Type 2 diabetes mellitus without complications Status: Chronic Assessment and Plan: On Accu-Cheks and sliding-scale insulin (5) Observed seizure-like activity: Code(s): R56.9 - Unspecified convulsions Status: Acute Assessment and Plan: no recent seizure activity. She is on Keppra for this (6) Erythropoietin deficiency anemia: Code(s): D63.1 - Anemia in chronic kidney disease Status: Chronic Assessment and Plan: On Epogen with each treatment. Subjective Date/time seen: 08/26/20 12:55 Interval history: Heaven is feeling better today. She still has a little bit of belly pain in the lower abdomen from her surgery. Upper belly is not tender or painful. She got her tunneled dialysis catheter yesterday evening and got dialysis in the middle of the night. Exam Narrative: Exam Narrative: WDWN in NAD skin no rash or subcu nodules head ncat lungs clear bilaterally cor reg no rub abd BS+ less tender and soft ext no edema. Objective Data Vital Signs Vital Signs: Vital Signs - 24 hr 08/25/20 14:37 08/25/20 14:50 08/25/20 15:05 Temperature 36.0 C L Pulse Rate 96 85 84 Respiratory Rate 18 22 H 22 H Blood Pressure 96/66 L 107/69 110/75 Pulse Oximetry 100 100 100 08/25/20 15:20 08/25/20 15:35 08/25/20 15:50 Temperature 36.5 C Pulse Rate 84 84 88 Respiratory Rate 22 H 20 18 Blood Pressure 121/77 110/77 114/82 Pulse Oximetry 100 93 95 08/25/20 16:00 08/25/20 16:15 08/25/20 16:45 Temperature 35.8 C L 35.6 C L 35.7 C L Pulse Rate 83 81 72 Respiratory Rate 18 18 18 Blood Pressure 129/76 125/86 132/83 Pulse Oximetry 100 100 100 08/25/20 17:45 08/25/20 20:35 08/25/20 22:35 Temperature 35.9 C L 36.6 C 36.7 C Pulse Rate 72 82 82 Respiratory Rate 18 12 18 Blood Pressure 119/62 129/62 146/89 H Pulse Oximetry 100 100 08/25/20 22:38 08/25/20 23:00 08/25/20 23:15 Temperature Pulse Rate 74 84 75 Respiratory Rate Blood Pressure 138/90 149/91 H 136/89 Pulse Oximetry 08/25/20 23:30 08/25/20 23:45 08/26/20 00:00 Temperature Pulse Rate 70 73 Respiratory Rate Blood Pressure 143/85 H 138/85 136/84 Pulse Oximetry 08/26/20 00:15 08/26/20 00:30 08/26/20 00:45 Temperature Pulse Rate 86 82 83 Respiratory Rate Blood Pressure 140/87 143/84 H 142/88 H Pulse Oximetry 08/26/20 01:00 08/26/20 01:20 08/26/20 01:39 Temperature Pulse Rate 69 82 85 Respiratory Rate Blood Pressure 145/83 H 149/84 H 138/87 Pulse Oximetry 08/26/20 01:47 08/26/20 05:07 Temperature 36.8 C 36.4 C Pulse Rate 81 84 Respiratory Rate 16 12 Blood Pressure 143/89 H 128/63 Pulse Oximetry 99 Intake/Output Intake/Output: Intake & Output 08/23/20 08/24/20 08/25/20 08/26/20 23:59 23:59 23:59 23:59 Intake Total 150 1440 150 970 Output Total 779 799 7080 Balance 150 1140 600 -680 Meds/Results Medications: Active
--- NOTE | 2020-08-26 13:29 | PM.IMPN ---
Progress Note: A&P Assessment and Plan (1) S/P total hysterectomy: Code(s): Z90.710 - Acquired absence of both cervix and uterus Status: Acute Assessment and Plan: Patient is POD#3 s/p laparoscopic total hysterectomy with bilateral salpingo-oophorectomy by Dr. Larson 08/23/20. Management including pain control and DVT prophylaxis per the primary service. (2) ESRD (end stage renal disease) on dialysis: Code(s): N18.6 - End stage renal disease; Z99.2 - Dependence on renal dialysis Status: Chronic Assessment and Plan: On peritoneal dialysis since November [address] Garcia in addition to transplant team at [facility], on renal transplant list. Appreciate Dr Garcia's input. Noted his plan that she should not have PD for the next 3 to 4 weeks. She had tunneled dialysis catheter placed 08/25 and dialyzed last night. Dialysis tomorrow. (3) Hypertension: Qualifiers: Hypertension type: unspecified Qualified Code(s): I10 - Essential (primary) hypertension Code(s): I10 - Essential (primary) hypertension Status: Chronic Assessment and Plan: Blood pressures reviewed and are reasonable maintained on her home irbesartan, nifedipine. Monitor BP and adjust treatment as needed. (4) Insulin dependent type 2 diabetes mellitus: Code(s): E11.9 - Type 2 diabetes mellitus without complications; Z79.4 - retirement (current) use of insulin Status: Chronic Assessment and Plan: Had been on her home Lantus. Hypoglycemia today, she is not eating much thus will hold her Lantus this evening and monitor. Continue to monitor with accu-cheks and adjust treatment as needed, cover with SSI. Recommend a diabetic diet once she is advanced from clear liquids per others. Additional Plan Thank you for allowing me to participate in this pleasant patient's care. Please call for any questions or concerns regarding her blood sugars or blood pressures. Subjective Date/time seen: 08/26/20 1300 Interval history: Ms. Trujillo is a 50yo F with end-stage renal disease and diabetes POD#3 s/p lap total hysterectomy and POD#1 tunneled dialysis catheter placement seen in follow up this afternoon. She is feeling better than yesterday. She rates her abdominal discomfort 6/10 at this time. R neck and chest are sore. Denies chest pain, shortness of breath. Tolerating some bites of full liquid diet without nausea or vomiting. Review of Systems Review of Systems: All systems reviewed & are unremarkable except as noted in HPI and below Exam Narrative: Exam Narrative: General: Female resting supine in bed in no acute distress. HEENT: Normocephalic, atraumatic, EOMI, oral mucosa moist. Neck: Supple. Chest: Lungs clear to auscultation all [place]. Respirations even and nonlabored. Tolerating room air. Dressings to right neck and to catheter on right chest are clean/dry/intact. Heart: Rate and rhythm regular. Abdomen: Soft, nontender, nondistended, incisions sites are clean, dry, intact, PD catheter site to left lower abdomen. Skin: Warm, dry, no rashes or lesions noted on limited exam. Extremities: No edema or pain to palpation. Peripheral pulses intact. Neurologic: Awake and alert. No focal neurological deficits noted in casual conversation. Speech is clear. Objective Data Vital Signs Vital Signs: Vital Signs - 24 hr 08/25/20 14:37 08/25/20 14:50 08/25/20 15:05 Temperature 96.8 F L Pulse Rate 96 85 84 Respiratory Rate 18 22 H 22 H Blood Pressure 96/66 L 107/69 110/75 Pulse Oximetry 100 100 100 08/25/20 15:20 08/25/20 15:35 08/25/20 15:50 Temperature 97.7 F Pulse Rate 84 84 88 Respiratory Rate 22 H 20 18 Blood Pressure 121/77 110/77 114/82 Pulse Oximetry 100 93 95 08/25/20 16:00 08/25/20 16:15 08/25/20 16:4
[2020-08-26 16:32] LABS: Glucose Point of Care 91 (65-105)
[2020-08-26] MEDS: ONDANSETRON INJ 4 MG/2 ML VIAL IV PUSH (19:41)
[2020-08-26 22:13] LABS: Glucose Point of Care 105 (65-105)
[2020-08-27] VITALS (18 sets, daily range): BP systolic 137–170; BP diastolic 85–108; PULSE 82–94; RESP 14–18; TEMP 36.2–37; O2SAT 100
[2020-08-27] MEDS: HYDROcodone/acetaminophen (*CRX) 10-325 MG TABLET 1 TAB PO ×2 (00:51→06:32)
[2020-08-27 06:19] LABS: Hematocrit 24.2 % (37.0-47.0); Hemoglobin 7.9 g/dL (12.0-15.0)
[2020-08-27 06:33] LABS: Albumin Level 2.8 g/dL (3.5-5.1); Anion Gap 4 mmol/L (8-16); Blood Urea Nitrogen 28 mg/dL (7-17); Calcium 7.9 mg/dL (8.4-10.2); Carbon Dioxide 31 mmol/L (22-30); Chloride 99 mmol/L (98-107); Estimated CRCL calculation 10 ml/min; Estimated Glomerular Filt Rate 7; Glucose 74 mg/dL (65-105); Phosphorus 4.4 mg/dL (2.5-4.5); Sodium 134 mmol/L (137-145)
[2020-08-27] MEDS: polyethylene glycoL 3350 17 GM POWD.PACK PO (06:39)
--- NOTE | 2020-08-27 07:59 | PM.GYNPNOP ---
FUNERAL DIRECTOR AND EMBALMER - A/P Postoperative Procedures: Procedures Operation Date: 08/23/20 13:00 Actual Procedures Side Surgeon p Total Laparoscopic Hysterectomy with Bilateral Salpingo Oophorectomy Jazmine Larson MD Operation Date: 08/25/20 13:00 Actual Procedures Side Surgeon p Placement Of Tunneled Duraflow Catheter Right Martin Brown MD Postoperative day: 4 Postoperative plan: other (Will advance diet as tolerated to diabetic diet. HD today, home after. FU Dr Larson 1 week.) Time Spent With Patient Time: Total time spent is greater than 50% in coordination of care (as documented) at patient's floor/unit and/or counseling patient: Time with patient: less than 15 minutes FUNERAL DIRECTOR AND EMBALMER- PN:Subj Post-Op Subjective Date/time seen: 08/27/20 07:59 Interval history: Ms. Trujillo is a 50yo F with end-stage renal disease and diabetes POD#4 s/p lap total hysterectomy and POD#2 tunneled dialysis catheter placement. She complains of some blood in peritoneal dialysis catheter. To get HD today. COmplains of a burning pain in TONA abdomen that bothers her the most. SOme nausea also. Taking oral pain meds, but only on clears. Exam Const: General: comfortable GI: GI Palp: Yes Soft to palpation Other: nontender, nondistended, serosanguinous drainage in peritoneal catheter Neuro: General: oriented to person, oriented to place, oriented to time and moves all extremities FUNERAL DIRECTOR AND EMBALMER - PN: Obj Data Vital Signs Vital Signs: Vital Signs - 24 hr 08/26/20 14:00 08/26/20 20:21 08/27/20 06:28 Temperature 96.9 F L 98.8 F 98.3 F Pulse Rate 83 86 89 Respiratory Rate 18 12 14 Blood Pressure 140/93 H 145/81 H 137/87 Pulse Oximetry 100 99 100 Intake/Output Intake/Output: Intake & Output 08/24/20 08/25/20 08/26/20 08/27/20 23:59 23:59 23:59 23:59 Intake Total 1858 559 3387 300 Output Total 630 126 8642 200 Balance 1140 -600 -280 100 Meds/Results Medications: Active Medications Generic Name Dose Route Start Last Admin Trade Name Freq PRN Reason Stop Dose Admin Acetaminophen 500 mg 08/25/20 15:52 Acetaminophen 500 Mg Tablet PO Q6H PRN Mild Pain (1-3) or Fever Hydrocodone Bitart/Acetaminophen 1 tab 08/23/20 17:22 08/25/20 09:49 Hydrocodone/Acetaminophen (*Crx) 5-325 Mg Tablet PO 1 tab Q3H PRN Administration Pain Rated 5 or Less Hydrocodone Bitart/Acetaminophen 1 tab 08/23/20 17:22 08/27/20 06:32 Hydrocodone/Acetaminophen (*Crx) 10-325 Mg Tablet PO 1 tab Q3H PRN Administration Pain Rated 6 or Greater Hydrocodone Bitart/Acetaminophen 1 tab 08/25/20 15:52 Hydrocodone/Acetaminophen (*Crx) 5-325 Mg Tablet PO Q4H PRN Pain Rated 4-6 Allopurinol 150 mg 08/24/20 09:00 08/26/20 09:24 Allopurinol 150 Mg Tablet PO 150 mg DAILY MARIELA Administration Calcitriol 0.25 mcg 08/24/20 09:00 08/26/20 08:30 Calcitriol 0.25 Mcg Capsule PO 0.25 mcg DAILY MARIELA Administration Dextrose 12.5 gm 08/25/20 10:15 08/26/20 08:38 Dextrose 50% 25 Gm/50 Ml Syringe IV PUSH 12.5 gm PRN PRN Administration Hypoglycemia Protocol Enoxaparin Sodium 30 mg 08/25/20 09:00 08/26/20 08:29 Enoxaparin 30 Mg/0.3 Ml Syringe SUB-Q 30 mg DAILY MARIELA Administration Epoetin Darin-epbx 10,000 units 08/25/20 18:00 Epoetin Darin-Epbx 10,000 Units/Ml Vial IV PUSH [email or web address] [facility] Ergocalciferol 50,000 unit 08/28/20 09:00 Ergocalciferol 50,000 Unit Capsule PO [email or web address]@0900 [facility] Fentanyl Citrate 50 mcg 08/23/20 19:13 08/24/20 11:52 Fentanyl Citrate Inj (*Crx) 100 Mcg/2 Ml Vial IV PUSH 50 mcg Q2HR PRN Administration Pain Glucagon 1 mg 08/25/20 10:15 Glucagon For Inj 1 Mg Vial IM PRN PRN Hypoglycemia Protocol Glucose 15 gm 08/25/20 10:15 Glucose Oral Gel 15 Gm Of Glucse In 37.5 Gm Tube PO PRN PRN Hypoglycemia Protocol Dextrose 1,000 mls @ 100 mls/hr 04/08/21 10:15 Dextrose 5% 1,000 Ml IVPB PRN PRN Hypoglycemia
--- NOTE | 2020-08-27 08:09 | PM.GYNPNOP ---
UPHOLSTERER HELPER - A/P Postoperative Procedures: Procedures Operation Date: 08/23/20 13:00 Actual Procedures Side Surgeon p Total Laparoscopic Hysterectomy with Bilateral Salpingo Oophorectomy Jazmine Larson MD Operation Date: 08/25/20 13:00 Actual Procedures Side Surgeon p Placement Of Tunneled Duraflow Catheter Right Martin Brown MD Postoperative plan: other Time Spent With Patient Time: Total time spent is greater than 50% in coordination of care (as documented) at patient's floor/unit and/or counseling patient:15min Time with patient: 15 - 25 minutes UPHOLSTERER HELPER- PN:Subj Post-Op Subjective Date/time seen: 08/27/20 08:09 Interval history: Ms. Trujillo is a 50yo F with end-stage renal disease and diabetes POD#4 s/p lap total hysterectomy and POD#2 tunneled dialysis catheter placement. She complains of some blood in peritoneal dialysis catheter. To get HD today. COmplains of a burning pain in T[place] abdomen that bothers her the most. SOme nausea also. Taking oral pain meds, but only on clears. UPHOLSTERER HELPER - PN: Obj Data Vital Signs Vital Signs: Vital Signs - 24 hr 08/26/20 14:00 08/26/20 20:21 08/27/20 06:28 Temperature 96.9 F L 98.8 F 98.3 F Pulse Rate 83 86 89 Respiratory Rate 18 12 14 Blood Pressure 140/93 H 145/81 H 137/87 Pulse Oximetry 100 99 100 Intake/Output Intake/Output: Intake & Output 08/24/20 08/25/20 08/26/20 08/27/20 23:59 23:59 23:59 23:59 Intake Total 6262 872 7059 300 Output Total 448 657 2497 200 Balance 1140 -600 -280 100 Meds/Results Medications: Active Medications Generic Name Dose Route Start Last Admin Trade Name Freq PRN Reason Stop Dose Admin Acetaminophen 500 mg 08/25/20 15:52 Acetaminophen 500 Mg Tablet PO Q6H PRN Mild Pain (1-3) or Fever Hydrocodone Bitart/Acetaminophen 1 tab 08/23/20 17:22 08/25/20 09:49 Hydrocodone/Acetaminophen (*Crx) 5-325 Mg Tablet PO 1 tab Q3H PRN Administration Pain Rated 5 or Less Hydrocodone Bitart/Acetaminophen 1 tab 08/23/20 17:22 08/27/20 06:32 Hydrocodone/Acetaminophen (*Crx) 10-325 Mg Tablet PO 1 tab Q3H PRN Administration Pain Rated 6 or Greater Hydrocodone Bitart/Acetaminophen 1 tab 08/25/20 15:52 Hydrocodone/Acetaminophen (*Crx) 5-325 Mg Tablet PO Q4H PRN Pain Rated 4-6 Allopurinol 150 mg 08/24/20 09:00 08/26/20 09:24 Allopurinol 150 Mg Tablet PO 150 mg DAILY MARIELA Administration Calcitriol 0.25 mcg 08/24/20 09:00 08/26/20 08:30 Calcitriol 0.25 Mcg Capsule PO 0.25 mcg DAILY MARIELA Administration Dextrose 12.5 gm 08/25/20 10:15 08/26/20 08:38 Dextrose 50% 25 Gm/50 Ml Syringe IV PUSH 12.5 gm PRN PRN Administration Hypoglycemia Protocol Enoxaparin Sodium 30 mg 08/25/20 09:00 08/26/20 08:29 Enoxaparin 30 Mg/0.3 Ml Syringe SUB-Q 30 mg DAILY MARIELA Administration Epoetin Darin-epbx 10,000 units 08/25/20 18:00 Epoetin Darin-Epbx 10,000 Units/Ml Vial IV PUSH [email or web address] Ergocalciferol 50,000 unit 08/28/20 09:00 Ergocalciferol 50,000 Unit Capsule PO [email or web address]@0900 [facility] Fentanyl Citrate 50 mcg 08/23/20 19:13 08/24/20 11:52 Fentanyl Citrate Inj (*Crx) 100 Mcg/2 Ml Vial IV PUSH 50 mcg Q2HR PRN Administration Pain Glucagon 1 mg 08/25/20 10:15 Glucagon For Inj 1 Mg Vial IM PRN PRN Hypoglycemia Protocol Glucose 15 gm 08/25/20 10:15 Glucose Oral Gel 15 Gm Of Glucse In 37.5 Gm Tube PO PRN PRN Hypoglycemia Protocol Dextrose 1,000 mls @ 100 mls/hr 08/25/20 10:15 Dextrose 5% 1,000 Ml IVPB PRN PRN Hypoglycemia Protocol Insulin Aspart 3 - 6 units 08/25/20 12:00 08/26/20 16:38 Insulin Aspart (*Bkc) 100 Units/Ml SUB-Q Not Given [facility] Protocol Insulin Glargine 10 units 08/23/20 21:00 08/25/20 20:38 Insulin Glargine (*Bkc) 100 Units/Ml SUB-Q 10 units HS MARIELA Administration Irbesartan 300 mg 08/24/20 09:00 08/26/20 08:30 Irbesartan
[2020-08-27 08:21] LABS: Glucose Point of Care 72 (65-105)
[2020-08-27 08:21] LABS: Glucose Point of Care 73 (65-105)
--- NOTE | 2020-08-27 09:36 | PM.PNNEP ---
Progress Note: A&P Assessment and Plan (1) End stage renal disease: Code(s): N18.6 - End stage renal disease Status: Chronic Assessment and Plan: the patient has end-stage renal disease. She is getting dialysis right now. (2) S/P total hysterectomy: Code(s): Z90.710 - Acquired absence of both cervix and uterus Status: Acute Assessment and Plan: postop day 2 (3) Hypertension: Qualifiers: Hypertension type: unspecified Qualified Code(s): I10 - Essential (primary) hypertension Code(s): I10 - Essential (primary) hypertension Status: Chronic Assessment and Plan: Blood pressure is a bit high. (4) Diabetes: Qualifiers: Diabetes mellitus type: type 2 Diabetes mellitus intermediate card tender insulin use: with intermediate card tender use Diabetes mellitus complication status: without complication Qualified Code(s): E11.9 - Type 2 diabetes mellitus without complications; Z79.4 - intermediate card tender (current) use of insulin Code(s): E11.9 - Type 2 diabetes mellitus without complications Status: Chronic Assessment and Plan: On Accu-Cheks and sliding-scale insulin (5) Observed seizure-like activity: Code(s): R56.9 - Unspecified convulsions Status: Acute Assessment and Plan: no recent seizure activity. She is on Keppra for this (6) Erythropoietin deficiency anemia: Code(s): D63.1 - Anemia in chronic kidney disease Status: Chronic Assessment and Plan: On Epogen with each treatment. Subjective Date/time seen: 08/27/20 09:36 Interval history: Heaven is feeling better today. She is on dialysis and tolerating it well. She was seen at 9:15 a.m. Her PD catheter has a little bit of blood-tinged fluid in it. I will try to see if we can get this flushed either here or at home if she gets discharged today. Review of Systems Cardiovascular: Cardiovascular: Reports no additional cardiovascular complaints Respiratory: Respiratory: Reports no additional respiratory complaints Gastrointestinal: Gastrointestinal: Reports no additional gastrointestinal complaints Genitourinary: Genitourinary: Reports no additional female genitourinary complaints Exam Narrative: Exam Narrative: WDWN in NAD skin no rash or subcu nodules head ncat lungs clear bilaterally cor reg no rub or gallop abd BS+ less tender and soft ext no edema. Objective Data Vital Signs Vital Signs: Vital Signs - 24 hr 08/26/20 14:00 08/26/20 20:21 08/27/20 06:28 Temperature 36.1 C L 37.1 C 36.8 C Pulse Rate 83 86 89 Respiratory Rate 18 12 14 Blood Pressure 140/93 H 145/81 H 137/87 Pulse Oximetry 100 99 100 08/27/20 08:00 08/27/20 08:51 08/27/20 08:57 Temperature 36.9 C Pulse Rate 89 94 90 Respiratory Rate 14 18 Blood Pressure 158/90 H 168/96 H Pulse Oximetry 100 Intake/Output Intake/Output: Intake & Output 08/24/20 08/25/20 08/26/20 08/27/20 23:59 23:59 23:59 23:59 Intake Total 0186 948 4621 300 Output Total 476 289 5891 200 Balance 1140 -600 -280 100 Meds/Results Medications: Active Medications Generic Name Dose Route Start Last Admin Trade Name Freq PRN Reason Stop Dose Admin Acetaminophen 500 mg 08/25/20 15:52 Acetaminophen 500 Mg Tablet PO Q6H PRN Mild Pain (1-3) or Fever Hydrocodone Bitart/Acetaminophen 1 tab 08/23/20 17:22 08/25/20 09:49 Hydrocodone/Acetaminophen (*Crx) 5-325 Mg Tablet PO 1 tab Q3H PRN Administration Pain Rated 5 or Less Hydrocodone Bitart/Acetaminophen 1 tab 08/23/20 17:22 08/27/20 06:32 Hydrocodone/Acetaminophen (*Crx) 10-325 Mg Tablet PO 1 tab Q3H PRN Administration Pain Rated 6 or Greater Hydrocodone Bitart/Acetaminophen 1 tab 08/25/20 15:52 Hydrocodone/Acetaminophen (*Crx) 5-325 Mg Tablet PO Q4H PRN Pain Rated 4-6 Allopurinol 150 mg 08/24/20 09:00 08/26/20 09:24 Allopurinol 150 Mg Tablet PO 150 mg EMMA
[2020-08-27] MEDS: levETIRAcetam 500 MG TABLET PO (12:34)
[2020-08-27 12:38] LABS: Glucose Point of Care 76 (65-105)
[2020-08-27] MEDS: ENOXAPARIN 30 MG/0.3 ML SYRINGE SUB-Q (12:58)
[2020-08-27] MEDS: IRBESARTAN 150 MG TABLET 300 MG PO (13:00)
[2020-08-27] MEDS: allopurinoL 150 MG TABLET PO (13:04)
[2020-08-27] MEDS: NIFEdipine 30 MG TAB.ER.24 PO (13:04)
[2020-08-27] MEDS: FAMOTIDINE 20 MG/2 ML VIAL 40 MG IV PUSH (13:17)
--- NOTE | 2020-08-27 13:53 | PM.IMPN ---
Progress Note: A&P Assessment and Plan (1) S/P total hysterectomy: Code(s): Z90.710 - Acquired absence of both cervix and uterus Status: Acute Assessment and Plan: Patient is POD#4 s/p laparoscopic total hysterectomy with bilateral salpingo-oophorectomy by Dr. Larson 08/23/20. Management including pain control and DVT prophylaxis per the primary service. (2) ESRD (end stage renal disease) on dialysis: Code(s): N18.6 - End stage renal disease; Z99.2 - Dependence on renal dialysis Status: Chronic Assessment and Plan: On peritoneal dialysis since November [address] Garcia in addition to transplant team at [facility], on renal transplant list. Appreciate Dr Garcia's input. Noted his plan that she should not have PD for the next 3 to 4 weeks. She had tunneled dialysis catheter placed 08/25 and dialyzed this morning which she tolerated well. (3) Hypertension: Qualifiers: Hypertension type: unspecified Qualified Code(s): I10 - Essential (primary) hypertension Code(s): I10 - Essential (primary) hypertension Status: Chronic Assessment and Plan: Blood pressures reviewed - high this afternoon but she wasn't given her morning meds prior to dialysis. She remains on her home irbesartan, nifedipine. Monitor BP and adjust treatment as needed. (4) Insulin dependent type 2 diabetes mellitus: Code(s): E11.9 - Type 2 diabetes mellitus without complications; Z79.4 - medical officer psychiatry (current) use of insulin Status: Chronic Assessment and Plan: Had been on her home Lantus. Hypoglycemia yesterday, she is not eating much thus we held Lantus last night. Decrease dose at discharge - we discussed monitoring her blood sugars closely and follow up with PCP. Additional Plan Thank you for allowing me to participate in this patient's care. She is medically stable for discharge from hospitalist standpoint. Decreased Lantus to 5units qHS and reminded her the importance of monitoring her blood sugars closely - she verbalizes understanding and will call her PCP if she has questions about insulin. Subjective Date/time seen: 08/27/20 1330 Interval history: Ms. Trujillo is a 50yo F with end-stage renal disease and diabetes POD#4 s/p lap total hysterectomy and POD#2 tunneled dialysis catheter placement seen in follow up this afternoon. She describes some epigastric burning at present without nausea or vomiting. Denies chest pain, shortness of breath. Tolerating some bites of food without nausea or vomiting but appetite is poor. Review of Systems Review of Systems: All systems reviewed & are unremarkable except as noted in HPI and below Exam Narrative: Exam Narrative: General: Female resting supine in bed in no acute distress. HEENT: Normocephalic, atraumatic, EOMI, oral mucosa moist. Neck: Supple. Chest: Lungs clear to auscultation all [place]. Respirations even and nonlabored. Tolerating room air. Dressings to right neck and to catheter on right chest are clean/dry/intact. Heart: Rate and rhythm regular. Abdomen: Soft, nondistended, incisions sites are clean, dry, intact, PD catheter site to left lower abdomen. Mild epigastric tenderness to palpation without guarding. Skin: Warm, dry, no rashes or lesions noted on limited exam. Extremities: No edema or pain to palpation. Peripheral pulses intact. Neurologic: Awake and alert. No focal neurological deficits noted in casual conversation. Speech is clear. Objective Data Vital Signs Vital Signs: Last Vital Signs Temp 97.2 F L 08/27/20 13:46 Pulse 93 08/27/20 13:46 Resp 18 08/27/20 13:46 BP 146/85 H 08/27/20 13:46 Pulse Ox 100 08/27/20 13:46 Intake/Output Intake/Output: Intake & Output 08/24/20 08/25/20 08/26/20 08/27/20 23:59 23:59 23:59 23:5
[2020-08-29 04:22] LABS: Hepatitis B Core Ab Total Nonreactive (Nonreactive)
--- NOTE | 2020-09-25 19:57 | PM.DS ---
DS: Admitting Diagnosis Admitting Diagnosis Admitting Diagnosis: uterine myomas, kidney failure DS: Discharge Diagnosis Discharge Diagnosis (1) Insulin dependent type 2 diabetes mellitus: Code(s): E11.9 - Type 2 diabetes mellitus without complications; Z79.4 - group home (current) use of insulin Status: Chronic (2) S/P total hysterectomy: Code(s): Z90.710 - Acquired absence of both cervix and uterus Status: Acute (3) End stage renal disease: Code(s): N18.6 - End stage renal disease Status: Chronic DS: Summary Hospital Course Hospital Course: this patient is a 50-year-old female who presented to the hospital for hysterectomy. The patient had large myomas. She was a candidate for a kidney transplant if the myomas could be removed to make space for a pelvic kidney. The hysterectomy was performed without complications. Her ovaries removed as well. She remained in the hospital for 4 days subsequently. In the subsequent days it was deemed that hemodialysis would have to be performed instead of the peritoneal dialysis that she has been receiving. A dialysis catheter was placed by Dr. howe. The hospitalist service was treating her diabetes and hypertension. She also had her director client managing her dialysis. Her hospital course was unremarkable other than these events. She was afebrile throughout her stay. Her pain was well controlled and she was tolerating p.o. and passing flatus at appropriate times. She was discharged on postoperative day 4. Status at Discharge Functional status at discharge: independent ambulation Time Spent with Patient Time attestation: Total time spent providing and/or coordinating discharge services: DS: Data Data Completed and Pending Completed studies during hospitalization: Pending at discharge 08/23/20 15:50 Surgical [PTH] Routine Discharge Plan Discharge Attending physician on discharge: Anyi Boston Consulting providers: Michelle Leone ; Hermelinda Pedersen ; Alon Garcia ; Nohemy Lorenzo ; Ger Lee ; Martin Howe Discharging Clinician: Anyi Boston Anticipated Discharge Date/Time: 08/27/20 16:00 Patient Disposition: Home, Self-Care Activity: may shower, no straining, may drive after 2 weeks and pelvic rest Diet: diabetic and renal Wound Care Instructions: incision open to air Discharge Instructions: Keep your scheduled appointment to follow up with Dr Larson in 1 week. Please call his office at for any questions or concerns regarding your surgery. Please contact Dr Garcia's office for any questions or concerns regarding your dialysis treatments. You are currently scheduled at [facility]//Sat. Please call Dr Morel's office to schedule hospital follow up appointment in 1 to 2 weeks. Please follow up with your nurse with the [facility] transplant team for follow up. Repeat blood work in 1 week to monitor kidney function and blood counts, results to Dr Morel and Dr Garcia. Please monitor your blood sugars closely, before each meal and at bedtime. Please keep a log of your blood sugars to show to Dr Morel at your follow up appointment. Your blood sugars have been low here in the hospital since you are not eating much. Recommend decreasing your lantus dose to 5 units each evening until you are tolerating eating more foods. If your blood sugar is below 70, drink some juice or eat a carbohydrate snack or meal, then recheck your blood sugar in 15 minutes. If your blood sugar is still below 70, eat a meal and repeat again in 15 minutes. Call your doctor if your blood sugar remains below 70 after eating, or if your blood sugar is above 400. Continue to monitor your symptoms and seek medical care right away if your illness is worsening. Return to ER if you have concerning symptoms including chest pain, feeling like you can't breathe, or persistent fevers > 101F. In light of the current Coronavirus sp
== END 2020-08-27 15:40 | disposition home or self-care (01) | DRG 981 ==
LOC: ANHSURGERY 15:46 → ANH3MED 15:46
PROVIDERS: Anesthesiology; Internal Medicine Nephrology; Physician Assistant; Surgery; Admitting Provider Obstetrics & Gynecology; PCP Family Medicine; Visit Provider Obstetrics & Gynecology
PROC: 0UT9FZZ Resection of Uterus, Via Natural or Artificial Opening With Percutaneous Endoscopic Assistance (ICD-10-PCS; principal; 2020-08-23 13:00)
PROC: 05H533Z Insertion of Infusion Device into Right Subclavian Vein, Percutaneous Approach (ICD-10-PCS; CPT 36908; principal; 2020-08-25 13:00)
DX: I12.0 Hypertensive chronic kidney disease with stage 5 chronic kidney disease or end stage renal disease (principal); N18.6 End stage renal disease; D25.9 Leiomyoma of uterus, unspecified; G40.909 Epilepsy, unspecified, not intractable, without status epilepticus; E78.5 Hyperlipidemia, unspecified; E11.21 Type 2 diabetes mellitus with diabetic nephropathy; M10.9 Gout, unspecified; D63.1 Anemia in chronic kidney disease
CPT/HCPCS: 36415; 77001; 80048; 80053; 80069; 82948; 83735; 85014; 85018; 85025; 86704; 86706; 86803; 87340; 88307; A9270; C1750; G0257; G0378; J0690; J1100; J1170; J1644; J1650; J1815; J2250; J2370; J2405; J2704; J2710; J3010; J7030; J7040; J7120

== ENCOUNTER 2020-09-03 13:37 | Outpatient (CLI) | payer MEDICARE, MEDICAID, SELFPAY ==
--- NOTE | ~2020-09-03 | XR_ITS ---
XR abdomen/kub 1V DATE: 09/03/2020 14:00 INDICATION: PD catheter placement check; status post hysterectomy 08/23/2020 TECHNIQUE: 3 AP views COMPARISON: None FINDINGS: Fundoplication device overlies the left upper quadrant. There is a catheter coiled, overlying mid pelvis. There are some nondilated gas containing small bowel segments overlying the left midabdomen, likely d ue to mild adynamic ileus. There is a prominent amount of fecal material in the right colon. No bowel obstruction is evident. No visceromegaly is evident. IMPRESSION: Pelvic catheter Fundoplication device Reviewed, dictated and finalized at [facility]. Reviewed, dictated and finalized at [facility].
== END 2020-09-03 13:38 | disposition home or self-care (01) ==
LOC: ANHIMG 13:41
PROVIDERS: PCP Family Medicine; Visit Provider Internal Medicine Nephrology
DX: Z96.89 Presence of other specified functional implants (principal)
CPT/HCPCS: 74018

== ENCOUNTER 2020-09-22 00:06 | Emergency (ER) | payer MEDICARE, MEDICAID, SELFPAY ==
--- NOTE | ~2020-09-22 | CT_ITS ---
EXAMINATION: CT abdomen pelvis wo con DATE: 09/22/2020 01:40 INDICATION: Abdominal pain TECHNIQUE: Computed tomography (CT) of the abdomen and pelvis was performed without intravenous contr ast. The dose-length product (DLP) was 971.20 mGy-cm. Automated exposure control and iterative recons truction technique were employed. COMPARISON: None FINDINGS: There are patchy groundglass opacities of the visualized lung bases. There is no pleural ef fusion or pneumothorax. The heart size is upper limits of normal. Changes of gastric lap band surgery are noted. The liver, spleen, pancreas, and adrenal glands are normal. Hyperattenuating material in the gallbladder likely vicarious excretion of contrast. A peritoneal dialysis catheter ends with its tip in the left lower pelvis. There is an approximately 8.1 x 5.7 cm fluid collection containing gas in the left lower quadrant. There are multiple dilated loops of small bowel with a transition seen ne ar the location of the fluid collection. There is mild atrophy of the kidneys. A small volume of pelv ic ascites is present. IMPRESSION: 1. Left lower quadrant fluid collection concerning for abscess. 2. Multiple dilated loops of small bowel with transition near the left lower quadrant fluid collectio n, ileus versus obstruction. 3. Patchy groundglass opacities of the visualized lung bases possibly reflecting atypical pneumonia s uch as COVID 19 pneumonia. Reviewed, dictated and finalized at location A. IMPRESSION: 1. Left lower quadrant fluid collection concerning for abscess. 2. Multiple dilated loops of small bowel with transition near the left lower qu adrant fluid collection, ileus versus obstruction. 3. Patchy groundglass opacities of the visualized lung bases possibly reflectin g atypical pneumonia such as COVID 19 pneumonia.
--- NOTE | ~2020-09-22 | XR_ITS ---
EXAMINATION: XR chest 1V portable INDICATION: Shortness of breath TECHNIQUE: Portable AP chest at 0135 hours COMPARISON: 08/25/2020 FINDINGS: A large bore right subclavian catheter ends with its tip in the distal superior vena cava. There are patchy opacities of the lung bases. The heart size is normal. There is no pleural effusion or pneumothorax. Tubing overlying the left upper quadrant is consistent with gastric lap band. IMPRESSION: 1. Patchy opacities of the lung bases, consistent with atelectasis versus pneumonia. 2. Large bore right subclavian central venous catheter ending with its tip in the distal superior brady a cava. Reviewed, dictated and finalized at location A. IMPRESSION: 1. Patchy opacities of the lung bases, consistent with atelectasis versus pneum onia. 2. Large bore right subclavian central venous catheter ending with its tip in t he distal superior vena cava.
--- NOTE | ~2020-09-22 | XR_ITS ---
EXAMINATION: XR abdomen NG/feed tube insert INDICATION: Nasogastric tube placement TECHNIQUE: Portable AP KUB-NG at 0408 hours COMPARISON: 09/03/2020 FINDINGS: There are minimal opacities of the lung bases. The nasogastric tube is in stomach. A gastri c lap band is noted. Hyperattenuating material in the right upper quadrant consistent with vicarious excretion of contrast into the gallbladder. IMPRESSION: 1. Nasogastric tube in the stomach. Reviewed, dictated and finalized at location A.
[2020-09-22 00:14] VITALS: PULSE 106; RESP 23; O2SAT 100
--- NOTE | 2020-09-22 00:21 | ECG_ITS ---
Measurements Intervals [place] Rate: 105 P: 46 TX: 144 QRS: -29 QRSD: 92 T: 30 QT: 363 QTc: 480 Interpretive Statements SINUS TACHYCARDIA BORDERLINE ST-T WAVE ABNORMALITY- INF/LAT LEADS BASELINE WANDER- II, III, AVL, AVF, V5-V6 ABNORMAL ECG Electronically Signed On 09-22-2020 6:24:13 CDT by Robert Bocanegra D.O.
[2020-09-22 00:22] VITALS: BP 177/102; PULSE 100; RESP 24; O2SAT 100
--- NOTE | 2020-09-22 00:46 | PC.NURSE ---
Unable to gain IV access.
--- NOTE | 2020-09-22 01:00 | PC.NURSE ---
Pt ambulated in [place] to restroom with steady gait.
[2020-09-22] MEDS: PROCHLORPERAZINE EDISYLATE 10 MG/2 ML VIAL IV PUSH ×2 (01:23→06:16)
[2020-09-22] MEDS: HYDROmorphone HCL INJ (*CRX) 1 MG/ML SYR IV PUSH (01:23)
[2020-09-22 01:31] LABS: Basophils Percent Auto 0.2 % (0.2-1.2); Eosinophils Absolute Auto 0.1 K/mm3 (0-0.3); Eosinophils Percent Auto 1.2 % (0-4.4); Hematocrit 25.4 % (37.0-47.0); Hemoglobin 8.1 g/dL (12.0-15.0); Immature Granulocyte Absolute 0.06 K/mm3 (0.00-0.031); Immature Granulocyte Percent A 0.6 % (0-0.5); Lymphocytes Absolute Auto 0.92 K/mm3 (0.9-3.2); Lymphocytes Percent Auto 9.3 % (18.3-44.2); Mean Corpuscular HGB Conc 31.9 g/dl (32-36); Mean Corpuscular Hemoglobin 28.4 pg (26-34); Mean Corpuscular Volume 89.1 fl (80-100); Monocytes Absolute Auto 0.4 K/mm3 (0.1-0.6); Monocytes Percent Auto 4.1 % (2.6-8.5); Neutrophils Absolute Auto 8.3 K/mm3 (1.3-6.7); Neutrophils Percent Auto 84.6 % (45.5-73.1); Platelet Count Result 440 k/mm3 (150-375); Red Blood Count 2.85 M/mm3 (4.2-5.4); White Blood Count 9.8 K/mm3 (4.5-10.0)
--- NOTE | 2020-09-22 01:31 | PC.NURSE ---
CXR completed at bedside. Pt resting on cart with call button and personal items within reach. Mom remains at bedside and is aware of poc. No complaints or concerns voiced at this time. Advised to press call button for assistance.
--- NOTE | 2020-09-22 01:33 | PC.NURSE ---
Pt to ct via cart.
[2020-09-22 01:41] LABS: INR 1.2; Prothrombin Time 15.7 Seconds (11.1-14.7)
[2020-09-22 01:42] LABS: Partial Thromboplastin Time 42.1 SECONDS (22.3-36.8)
--- NOTE | 2020-09-22 01:42 | PC.NURSE ---
Pt returned from ct.
[2020-09-22 01:49] LABS: Lactic Acid Reflex 1.7 mmol/L (0.7-2.1)
[2020-09-22 01:50] LABS: Alanine Aminotransferase 10 U/L (4-35); Albumin Level 3.9 g/dL (3.5-5.1); Alkaline Phosphatase 82 U/L (38-126); Anion Gap 19 mmol/L (8-16); Aspartate Amino Transferase 18 U/L (14-36); Bilirubin,Total 0.6 mg/dL (0.2-1.3); Blood Urea Nitrogen 53 mg/dL (7-17); Calcium 10.2 mg/dL (8.4-10.2); Carbon Dioxide 16 mmol/L (22-30); Chloride 104 mmol/L (98-107); Estimated CRCL calculation 6 ml/min; Estimated Glomerular Filt Rate 4; Glucose 142 mg/dL (65-105); Magnesium 2.4 mg/dL (1.6-2.3); Potassium 5.2 mmol/L (3.4-5.0); Sodium 139 mmol/L (137-145)
--- NOTE | 2020-09-22 02:31 | ECG_ITS ---
Measurements Intervals [place] Rate: 98 P: 35 MI: 140 QRS: -32 QRSD: 91 T: 30 QT: 361 QTc: 462 Interpretive Statements SINUS RHYTHM LEFT AXIS DEVIATION DELAYED PRECORDIAL R/S TRANSITION VOLTAGE CRITERIA FOR LVH BORDERLINE ECG Electronically Signed On 09-22-2020 6:25:31 CDT by Robert Bocanegra D.O.
--- NOTE | 2020-09-22 02:38 | PC.NURSE ---
Mom left bedside. Pt on cart sleeping. Denies all pain and discomfort at this time. call button and personal items within reach.
[2020-09-22] MEDS: CALCIUM GLUCONATE 1,000 MG/10 ML VIAL 1000 MG IV PUSH (02:51)
[2020-09-22] MEDS: DEXTROSE 50% 25 GM/50 ML SYRINGE IV PUSH (03:03)
[2020-09-22] MEDS: INSULIN HUMAN REGULAR (*BKC) 100 UNITS/ML 10 UNITS IV PUSH (03:05)
--- NOTE | 2020-09-22 03:20 | ED.GENADULT ---
HPI - General Adult General Chief complaint: Abdominal Pain Stated complaint: N/V, no dialysis in a week Time Seen by Provider: 09/22/20 00:16 History of Present Illness HPI narrative: Patient 50-year-old female presents to emergency department with chief complaint of abdominal pain and generalized weakness. Patient reports she is originally a peritoneal dialysis patient where her peritoneal dialysis catheter was placed by Dr. Magaña at [facility]. Patient 1 month ago had a vaginal hysterectomy done at our facility by Dr. Larson the patient also had a temporary hemodialysis catheter placed at that time. The patient over the last week has had abdominal pain and has had generalized weakness in the point that she has not felt up to going to dialysis and has missed dialysis for the last week. The patient states that she feels a little short of breath and feels generalized weakness and feels as though there is an infection in her dialysis peritoneal point patient reports not able to get comfortable in any position has had nausea and vomiting. Patient denies fever Related Data Home Medications Medication Instructions Recorded Confirmed allopurinol 150 mg PO DAILY 11/03/19 08/23/20 irbesartan 300 mg PO DAILY 11/03/19 08/23/20 Velphoro 500 mg PO TID 08/09/20 08/23/20 calcitriol 0.25 mcg PO DAILY 08/09/20 08/23/20 ergocalciferol (vitamin D2) 1,250 mcg PO WEEKLY 08/09/20 08/23/20 levetiracetam [Keppra] 500 mg PO BID 08/09/20 08/23/20 nifedipine 30 mg PO BID 08/09/20 08/23/20 rifampin 600 mg PO DAILY 08/09/20 08/23/20 Allergies Allergy/AdvReac Type Severity Reaction Status Date / Time clonidine AdvReac Severe blacking Verified 08/25/20 12:02 out lisinopril AdvReac Severe kidney Verified 08/25/20 12:02 function hydralazine AdvReac Headache Verified 08/25/20 12:02 Review of Systems Review of Systems: Narrative: A 10 system review of systems was completed on the patient and is negative except for what is stated in the HPI. Nursing and ancillary documentation was reviewed. [facility] Past Medical History Medical History End-stage renal disease on peritoneal dialysis On peritoneal dialysis since November 2019, managed by Dr. Garcia Erythropoietin deficiency anemia Gout Hypertension Insulin dependent type 2 diabetes mellitus Hemoglobin A1c was 7.3% in March 2020. Mixed hyperlipidemia Seizure disorder (~10/2019) Patient reports questionable seizure activity in the past. She is maintained on Keppra by Dr. Williamson Surgical History Surgical History H/O: hysterectomy Laparoscopic total hysterectomy with bilateral salpingo oophorectomy by Dr. Larson 08/23/20 History of laparoscopic adjustable gastric banding (~2013) History of tubal ligation (~1993) Family History Family History Father Diabetes mellitus Kidney disease Social History Social History Social History: Ms. Trujillo lives at home with her mother in [place]. She has not been working since June 2019 due to [employer] but previously was working as an [employer], now on disability. She denies alcohol, tobacco, or other drug abuse. She designates her mother, Jennifer, as her surrogate decision maker and she wishes to be a full code. PCP is Dr. Maria Teresa Ramirez. Smoking status: Never smoker Second hand tobacco smoke exposure: No Alcohol intake: former Substance use: never Substance use type: does not use Spiritual care concerns: No Agree to blood products: Yes Exam Narrative: Exam Narrative: GENERAL: Well-appearing, well-nourished, and in no acute distress. HEAD: Normocephalic, atraumatic. EYES: PERRLA and EOMI. ENT: Nares clear, no rhinorrhea or epistaxis. Mucous membranes moist. NECK: Supple. CHEST: Clear t
--- NOTE | 2020-09-22 03:57 | PC.NURSE ---
NG tube inserted at 57cm. Pt tolerated well. Xray called to verify placement.
[2020-09-22 03:58] VITALS: BP 175/101; PULSE 108; RESP 21; TEMP 37.1
--- NOTE | 2020-09-22 04:41 | PC.NURSE ---
Report called to [facility] in [place]. Ok to send pt.
[2020-09-22 04:54] LABS: Glucose Point of Care 132 (65-105)
--- NOTE | 2020-09-22 04:55 | PC.NURSE ---
Glucose 132.
--- NOTE | 2020-09-22 06:00 | PC.NURSE ---
EMS arrived for pt transport. Pt complaining of nausea and EDMD notified.
[2020-09-22 06:15] VITALS: BP 173/92; PULSE 98; RESP 18; TEMP 36.7; O2SAT 100
--- NOTE | 2020-09-22 06:15 | PC.NURSE ---
Medications administered and pt resting on cart. Vitals are stable and pt in no obvious distress. Pt transported to [facility] via EMS with belongings and chart.
== END 2020-09-22 06:19 | disposition short-term general hospital (02) ==
PROVIDERS: Emergency Provider Emergency Medicine; PCP Family Medicine
DX: K65.1 Peritoneal abscess (principal); K56.609 Unspecified intestinal obstruction, unspecified as to partial versus complete obstruction; N18.6 End stage renal disease; I12.0 Hypertensive chronic kidney disease with stage 5 chronic kidney disease or end stage renal disease; E11.22 Type 2 diabetes mellitus with diabetic chronic kidney disease; Z99.2 Dependence on renal dialysis; D63.1 Anemia in chronic kidney disease; M10.9 Gout, unspecified; E78.2 Mixed hyperlipidemia; G40.909 Epilepsy, unspecified, not intractable, without status epilepticus; Z79.4 Long term (current) use of insulin; R00.0 Tachycardia, unspecified; R94.31 Abnormal electrocardiogram [ECG] [EKG]
CPT/HCPCS: 36415; 71045; 74176; 80053; 82948; 83605; 83735; 85025; 85610; 85730; 87040; 93005; 96365; 96366; 96367; 96375; 99285; J0610; J0780; J1170; J1815; J2543; J3370